=== PATIENT | male | born 1950 | race Caucasian/White ===

== ENCOUNTER 2025-01-08 14:31 | Inpatient (IN) | payer MEDICARE, SELFPAY ==
--- OUTSIDE RECORDS SUMMARY | 2024-02-22 08:24 | XMS_ITS | Encounter Summary ---
Author Name [facility] [place] Organization [facility] [place] Address [address] [place] [address] Care Team Providers Care Facility Manager Name Role Phone MEMO MARQUEZ Primary Care Provider Unavailabl e BREANA WHIPPLE Primary Care Provider Unavailabl e Insurance Providers: All historical and current Section Date Range: From patient's date of to the date document was created. This section includes the names of all active insurance providers for the patient. Insurance Provider Type of Coverage Plan Name Start of Policy Coverage End of Policy Coverage Group Number Member ID Insurance Provider's Telephone Number Policy Gonzalez's Name Patient's Relationship to Policy Gonzalez [facility] (WNR) MEDICARE ADVANTAGE [facility] (WNR) May 21, 2023 [id number] BAYRON,ADI GOTTI PATIENT [employer] [facility] (WNR) MEDICARE ADVANTAGE MCR (WNR) May 21, 2018 [id number] [phone] BAYRON,ADI RGE PATIENT [employer] [facility] (WNR) MEDICARE ADVANTAGE MCR (WNR) May 21, 2017 [id number] [phone] BAYRON,ADI GOULDE PATIENT [employer] [facility] (WNR) MEDICARE ADVANTAGE [facility] (WNR) May 21, 2017 [id number] ADI VERMA PATIENT MEDICARE (WNR) MEDICARE (M) PART A Jul 19, 2014 PART A [id number] ADI VERMA PATIENT MEDICARE (WNR) MEDICARE (M) PART B Jul 19, 2014 PART B [id number] ADI VERMA PATIENT MEDICARE (WNR) MEDICARE (M) PART A Jul 19, 2014 PART A [id number] ADI VERMA PATIENT MEDICARE (WNR) MEDICARE (M) PART B Jul 19, 2014 PART B [id number] [phone] [id number] ADI VERMA PATIENT MEDICARE PART D (WNR) MEDICARE (M) PART D May 21, 2022 PART D [id number] ADI VERMA PATIENT [facility] (WNR) MEDICARE ADVANTAGE [facility] (WNR) September 19, 2023 [id number] ADI VERMA PATIENT Selected Encounter This section includes the information on record at OR for the Encounter. Date/Time Encounter Type Encounter Description Reason Provider Source Feb 22, 2024 01:24 PM Outpatient Encounter ADMIN PAT ACTIVTIES (MASNONCT) KVNG OSEGUERA Encounter Template Text not used by OR Plan of Treatment: Future Appointments (+ 6 months) and Future Tests (+/- 45 days) The Plan of Treatment section includes future care activities for the patient from all [place] treatmentfacilities. This section includes future appointments and future orders which are active, pending or scheduled. Future Appointments This section includes appointments that were scheduled to occur 6 months from the date of the Encounter, up to a maximum of 20 appointments. The data comes from all [place] treatment facilities. Appointment Date/Time Appointment Type Appointme nt Facility Name Feb 26, 2024 10:20 AM AMBULATORY - MEDICINE [facility] Mar 04, 2024 01:00 PM AMBULATORY - MEDICINE [facility] Lab Results: +/- 30 days of the encounter This section includes the Chemistry and Hematology Lab Results on record with OR for the patient. Radiology Reports and Pathology Reports are provided separately, in subsequent sections. Lab Results This section contains the Chemistry/Hematology Results that were resulted 30 days before or 30 daysafter the date of the Encounter. Date/Time Source Result Type Result - Unit Interpretation Reference Range Specimen Type Comment Feb 26, 2024 10:10 AM [facility] COMPREHENSIVE METABOLIC PANEL PLASMA Specimen Type: PLASMA No comment entered. Ordering Provider: MEMO MARQUEZ Report Released Date/Time: Sep 06, 2023 03:29 PM Reporting Lab: [place] [facility] [address] [place] [address] Performing Lab: [place] [facility] [address] [place] [address] CREATININE 1.34 mg/dL H 0.7-1.3 UREA NITROGEN 26 mg/dL H 9-25 GLUCOSE 214 mg/dL H 72-99 SODIUM 138 meq/L 136-145 POTASSIUM 4.7 meq/L 3.5-5 CHLORIDE 108 meq/L H 98-107 CARBON DIOXIDE 22 meq/L 22-31 CALCIUM 9.4 mg/dL 8.4-10.4 PROTEIN 7.3 g/dL 6-8.6 ALBUMIN 4.4 g/dL 3.4-5 TOTAL BILIRUBIN 0.2 mg/dL 0.2-1.2 ALKALINE PHOSPHATASE 63 U/L 40-150 AST/SGOT 15 U/L 5-34 ALT/SGPT 17 U/L 8-40 EGFR (CKD-EPI 2020) 56 Feb 26, 2024 10:10 AM [facility] CHOLESTEROL PANEL (PB) PLASMA Specimen Type: P LASMA No comment entered. Ordering Provider: MEMO MARQUEZ Report Released Date/Time: Sep 06, 2023 03:29 PM Reporting Lab: [place] [facility] [address] [place] [address] Performing Lab: [place] [facility] [address] [place] [address] CHOLESTEROL 139 mg/dL 0-200 TRIGLYCERIDE 129 mg/dL 0-150 CALCULATED LDL 77.1 mg/dL HDL(New) 36.1 mg/dL L >40 HDL % OF TOTAL CHOLESTEROL (PB) 26.0 >25 Feb 26, 2024 10:10 AM [facility] HGA1C BLOOD Specimen Type: BLOOD No comment entered. Ordering Provider: MEMO MARQUEZ Report Released Date/Time: Sep 06, 2023 03:29 PM Reporting Lab: [place] [facility] [address] [place] [address] Performing Lab: [place] [facility] [address] [place] [address] HGA1C 7.5 H 4.0-6.0 Radiology Reports: +/- 30 days of the encounter Radiology Reports For cases when an order for radiology services may have been completed prior to the date of the Encounter, the report list includes the Radiology Reports that were completed up to 30 days before dateof the Encounter. For cases when an order for radiology services may have been completed after the date of the Encounter, the report list also includes the Radiology Reports that were completed up to30 days after date of the Encounter. The data comes from all [place] treatment facilities. Date/Time Radiology Report Provider Source Mar 04, 2024 01:37 PM CHEST X-RAY, 2 VIE WS: TIFFANY VERMA [id number] -1950 M Exm Date: MAR 04, 2024@13:37 Req Phys: MEMO MARQUEZ Loc: PB-MAIN PACT ECHO PCP (Req'g Lo Img Loc: PB-XRAY [place] Service: [place] [address] (Case [id number] COMPLETE) CHEST X-RAY, 2 VIEWS (RAD Detailed) CPT:37577 Reason for Study: heartburn Clinical History: Report Status: Verified Date Reported: MAR 04, 2024 Date Verified: MAR 04, 2024 Residential Field Manager E-Sig: Report: PA and lateral views of the chest reveal moderate degenerative skeletal change, atherosclerotic and granulomas calcifications and mild bilateral hyperaeration, with no infiltrate, effusion or other acute intrathoracic process. Heart size is normal. Impression: No acute process Primary Interpreting Staff: GIANNA WHITE RADIOLOGIST (Residential Field Manager, no e-sig) /GIANNA Lopez [facility] Encounter Notes: All associated encounter notes This section contains the clinical notes associated to the Encounter. Date/Time Encounter Note(s) Provider Source Feb 22, 2024 01:24 PM PRIMARY CARE NOTE: LOCAL TITLE: C TRAVELING PCMM NOTE PB STANDARD TITLE: PRIMARY CARE NOTE DATE OF NOTE: FEB 22, 2024@13:24 ENTRY DATE: FEB 22, 2024@13:24:32 AUTHOR: KVNG OSEGUERA EXP COSIGNER: URGENCY: STATUS: COMPLETED Pt. has an appt. to establish care with [facility] on 03-04-24. PCMM complete. /anna/ KVNG OSEGUERA [facility] RNCC Signed: 02/22/2024 13:24 KVNG OSEGUERA [facility]
--- OUTSIDE RECORDS SUMMARY | 2024-02-25 05:32 | XMS_ITS | Encounter Summary ---
Author Name Department of [place] Organization [place] Address [address] [place] [address] Care Team Providers Care Church History Professor Name Role Phone MEMO MARQUEZ Primary Care [...] Name Patient's Relationship to Policy Gonzalez [facility] (WNR) MEDICARE ADVANTAGE [facility] (WNR) May 21, 2023 [id number] BAYRON,ADI GOTTI PATIENT [employer] [facility] (WNR) MEDICARE ADVANTAGE MCR (WNR) May 21, 2018 [id number] [phone] BAYRON,ADI RGE PATIENT [employer] [facility] (WNR) MEDICARE ADVANTAGE MCR (WNR) May 21, 2017 [id number] [phone] BAYRON,ADI BRYANNAE PATIENT [employer] [facility] (WNR) MEDICARE ADVANTAGE [facility] (WNR) May 21, 2017 [id number] [phone] ADI VERMA PATIENT MEDICARE (WNR) MEDICARE (M) PART A Jul 19, 2014 PART A [id number] ADI VERMA PATIENT MEDICARE (WNR) MEDICARE (M) PART B Jul 19, 2014 PART B [id number] ADI VERMA PATIENT MEDICARE (WNR) MEDICARE (M) PART A Jul 19, 2014 PART A [id number] ADI VERMA PATIENT MEDICARE (WNR) MEDICARE (M) PART B Jul 19, 2014 PART B [id number] ADI VERMA PATIENT MEDICARE PART D (WNR) MEDICARE (M) PART D May 21, 2022 PART D [id number] ADI VERMA PATIENT [facility] (WNR) MEDICARE ADVANTAGE [facility] (WNR) September 19, 2023 [id number] 75 ADI VERMA PATIENT Selected Encounter This section includes the information on record at [place] for the Encounter. Date/Time Encounter Type Encounter Description Reason Provider Source Feb 25, 2024 10:32 AM Outpatient Encounter ADMIN PAT ACTIVTIES (MASNONCT) THAGN VILLALPANDO Encounter Template Text not used by [place] Plan of Treatment: Future Appointments (+ 6 months) and Future Tests (+/- 45 days) The Plan of Treatment section includes future care activities for the patient from all [place] treatmentfaunc healthities. This section includes future appointments and future orders which are active, pending or scheduled. Future Appointments This section includes appointments that were scheduled to occur 6 months from the date of the Encounter, up to a maximum of 20 appointments. The data comes from all [place] treatment facilities. Appointment Date/Time Appointment Type Appointme nt Facility Name Feb 26, 2024 10:20 AM AMBULATORY - MEDICINE [facility] Mar 04, 2024 01:00 PM AMBULATORY - MEDICINE [facility] Aug 25, 2024 10:20 AM AMBULATORY - MEDICINE [facility] Lab Results: +/- 30 days of the encounter This section includes the Chemistry and Hematology Lab Results on record with [place] for the patient. Radiology Reports and Pathology Reports are provided separately, in subsequent sections. Lab Results This section contains the Chemistry/Hematology Results that were resulted 30 days before or 30 daysafter the date of the Encounter. Date/Time Source Result Type Result - Unit Interpretation Reference Range Specimen Type Comment Feb 26, 2024 10:10 AM [facility] COMPREHENSIVE METABOLIC PANEL PLASMA Specimen Type: PLASMA No comment entered. Ordering Provider: MEMO MARQUEZ Report Released Date/Time: Sep 06, 2023 03:29 PM Reporting Lab: [place] [facility] [address] [place] [address] Performing Lab: [place] [facility] [address] [place] [address] CREATININE 1.34 mg/dL H 0.7-1.3 UREA NITROGEN [...] 2020) 56 Feb 26, 2024 10:10 AM [facility] CHOLESTEROL PANEL (PB) PLASMA Specimen Type: P LASMA No comment entered. Ordering Provider: MEMO MARQUEZ Report Released Date/Time: Sep 06, 2023 03:29 PM Reporting Lab: [place] [facility] [address] [place] [address] Performing Lab: [place] [facility] [address] [place] [address] CHOLESTEROL 139 mg/dL 0-200 TRIGLYCERIDE 129 mg/dL 0-150 CALCULATED LDL 77.1 mg/dL HDL(New) 36.1 mg/dL L >40 HDL % OF TOTAL CHOLESTEROL (PB) 26.0 >25 Feb 26, 2024 10:10 AM [facility] HGA1C BLOOD Specimen Type: BLOOD No comment entered. Ordering Provider: MEMO MARQUEZ Report Released Date/Time: Sep 06, 2023 03:29 PM Reporting Lab: [place] [facility] [address] [place] [address] Performing Lab: [place] [facility] [address] [place] [address] HGA1C 7.5 H 4.0-6.0 Radiology Reports: +/- [...] the Encounter. The data comes from all [place] treatment facilities. Date/Time Radiology Report Provider Source Mar 04, 2024 01:37 PM CHEST X-RAY, 2 VIE WS: TIFFANY VERMA [id number] -1950 M Exm Date: MAR 04, 2024@13:37 Req Phys: MEMO MARQUEZ Pat Loc: PB-MAIN PACT ECHO PCP (Req'g Lo Img Loc: PB-XRAY [place] Service: [place] [address] (Case [id number] COMPLETE) CHEST X-RAY, 2 VIEWS (RAD Detailed) CPT:49224 Reason for Study: heartburn Clinical History: Report Status: Verified Date Reported: MAR 04, 2024 Date Verified: MAR 04, 2024 Air Brake Adjuster E-Sig: Report: PA and lateral views of the chest reveal moderate degenerative skeletal change, atherosclerotic and granulomas calcifications and mild bilateral hyperaeration, with no infiltrate, effusion or other acute intrathoracic process. Heart size is normal. Impression: No acute process Primary Interpreting Staff: GIANNA WHITE RADIOLOGIST (Air Brake Adjuster, no e-sig) /GIANNA Lopez [facility] Encounter Notes: All associated encounter notes This section contains the clinical notes associated to the Encounter. Date/Time Encounter Note(s) Provider Source Feb 25, 2024 10:32 AM PRIMARY CARE ADMIN ISTRATIVE NOTE: LOCAL TITLE: PCMM TRAVELING/RELOCATING COORDINATOR STANDARD TITLE: PRIMARY CARE ADMINISTRATIVE NOTE DATE OF NOTE: FEB 25, 2024@10:32 ENTRY DATE: FEB 25, 2024@10:32:57 AUTHOR: THANG VILLALPANDO EXP COSIGNER: URGENCY: STATUS: COMPLETED Received PCMM (Patient Centered Care Module)actionable alert. Clinical record review completed by [facility]; has permanently relocated to [place], [place] scheduled an appointment to establish Primary Care with [facility] on 03/04/24. New PACT assignment approved in PCMM. PACT assignment, responsibility of managing care, and full supply of medications will remain with [facility] until established with new PCP. /anna/ THANG VILLALPANDO, MSN, INVASIVE CARDIOLOGIST COORDINATOR Signed: 02/25/2024 10:35 THANG VILLALPANDO [facility]
--- OUTSIDE RECORDS SUMMARY | 2024-02-27 08:36 | XMS_ITS | Encounter Summary ---
Author Name Department [place] Organization [place] Address [address] [place] [address] Care Team Providers Care Solderer Furnace Name Role Phone MEMO MARQUEZ Primary Care [...] Gonzalez's Name Patient's Relationship to Policy Gonzalez [facility] (WNR) MEDICARE ADVANTAGE [facility] (WNR) May 21, 2023 [id number] BAYRON,ADI GOTTI PATIENT [employer] [facility] (WNR) MEDICARE ADVANTAGE MCR (WNR) May 21, 2018 [id number] [phone] BAYRON,ADI RGE PATIENT [employer] [facility] (WNR) MEDICARE ADVANTAGE MCR (WNR) May 21, 2017 [id number] [phone] BAYRON,ADI BRYANNAE PATIENT [employer] [facility] (WNR) MEDICARE ADVANTAGE [facility] (WNR) May 21, 2017 [id number] [phone] ADI VERMA PATIENT MEDICARE (WNR) MEDICARE (M) PART A Jul 19, 2014 PART A [id number] ADI VERMA PATIENT MEDICARE (WNR) MEDICARE (M) PART B Jul 19, 2014 PART B [id number] ADI VERMA PATIENT MEDICARE (WNR) MEDICARE (M) PART A Jul 19, 2014 PART A [id number] [phone] ADI VERMA PATIENT MEDICARE (WNR) MEDICARE (M) PART B Jul 19, 2014 PART B [id number] ADI VERMA PATIENT MEDICARE PART D (WNR) MEDICARE (M) PART D May 21, 2022 PART D [id number] ADI VERMA PATIENT [facility] (WNR) MEDICARE ADVANTAGE [facility] (WNR) September 19, 2023 [id number] 75 ADI VERMA PATIENT Selected Encounter This section includes the information on record at [place] for the Encounter. Date/Time Encounter Type Encounter Description Reason Pro vider Source Feb 27, 2024 01:36 PM Outpatient Encounter ADMIN PAT ACTIVTIES (MASNONCT) [facility] Encounter Template Text not used by [place] Plan of Treatment: Future Appointments (+ 6 months) and Future Tests (+/- 45 days) The Plan of Treatment section includes future care activities for the patient from all [place] treatmentfacilities. This section includes future appointments and future orders which are active, pending or scheduled. Future Appointments This section includes appointments that were scheduled to occur 6 months from the date of the Encounter, up to a maximum of 20 appointments. The data comes from all [place] treatment facilities. Appointment Date/Time Appointment Type Appointme nt Facility Name Mar 04, 2024 01:00 PM AMBULATORY - MEDICINE [facility] Aug 25, 2024 10:20 AM AMBULATORY - MEDICINE [facility] Lab Results: +/- 30 days of the encounter This section includes the Chemistry and Hematology Lab Results on record with [place] for the patient. Radiology Reports and Pathology Reports are provided separately, in subsequent sections. Lab Results This section contains the Chemistry/Hematology Results that were resulted 30 days before or 30 daysafter the date of the Encounter. Date/Time Source Result Type Result - Unit Interpretation Reference Range Specimen Type Comment Feb 26, 2024 10:10 AM [facility] COMPREHENSIVE METABOLIC PANEL PLASMA Specimen Type: PLASMA No comment entered. Ordering Provider: MEMO MARQUEZ Report Released Date/Time: Sep 06, 2023 03:29 PM Reporting Lab: [place] [facility] [address] [place] [address] Performing Lab: [place] [facility] [address] [place] [address] CREATININE 1.34 mg/dL H 0.7-1.3 UREA NITROGEN [...] 2020) 56 Feb 26, 2024 10:10 AM [facility] CHOLESTEROL PANEL (PB) PLASMA Specimen Type: P LASMA No comment entered. Ordering Provider: MEMO MARQUEZ Report Released Date/Time: Sep 06, 2023 03:29 PM Reporting Lab: [place] [facility] [address] [place] [address] Performing Lab: [place] [facility] [address] [place] [address] CHOLESTEROL 139 mg/dL 0-200 TRIGLYCERIDE 129 mg/dL 0-150 CALCULATED LDL 77.1 mg/dL HDL(New) 36.1 mg/dL L >40 HDL % OF TOTAL CHOLESTEROL (PB) 26.0 >25 Feb 26, 2024 10:10 AM [facility] HGA1C BLOOD Specimen Type: BLOOD No comment entered. Ordering Provider: MEMO MARQUEZ Report Released Date/Time: Sep 06, 2023 03:29 PM Reporting Lab: [place] [facility] [address] [place] [address] Performing Lab: [place] [facility] [address] [place] [address] HGA1C 7.5 H 4.0-6.0 Social History: Smoking Status (Most current) and Tobacco Use (All prior to encounter date) This section includes the most current, and the historical, smoking and tobacco- related health factors from the [place] facility where the Encounter took place. Current Smoking Status This section includes the most current smoking, or tobacco-related health factor, from the [place] facility where the Encounter took place. Date/Time Current Smoking Status Comment Facil ity Sep 06, 2023 02:30 PM VA-TOBACCO USER EVERY DAY [facility] Tobacco Use History This section includes a history of the smoking, or tobacco-related health factors, that were collected on or before the date of the Encounter. The data comes from the [place] facility where the Encounter took place. Date/Time Smoking Status/Tobacco Use Comment F acility Sep 06, 2023 02:30 PM VA-TOBACCO USE ADVICE [facility] Sep 06, 2023 02:30 PM VA-TOBACCO USE SAMPLE CARD MAKER NO [facility] Sep 06, 2023 02:30 PM VA-TOBACCO USE MED NO [facility] Sep 06, 2023 02:30 PM VA-TOBACCO USE WI 30 MIN OF WAKE UP [facility] Sep 06, 2023 02:30 PM VA-TOBACCO USER EVERY DAY [facility] Radiology Reports: +/- 30 days of the [...] the Encounter. The data comes from all [place] treatment facilities. Date/Time Radiology Report Provider Source Mar 04, 2024 01:37 PM CHEST X-RAY, 2 VIE WS: TIFFANY VERMAANNA [id number] -1950 M Exm Date: MAR 04, 2024@13:37 Req Phys: ALMA,MEMO Pat Loc: PB-MAIN PACT ECHO PCP (Latoyaq'vlad Lo Img Loc: PB-XRAY [place] Service: [place] [address] (Case [id number] COMPLETE) CHEST X-RAY, 2 VIEWS (RAD Detailed) CPT:29521 Reason for Study: heartburn Clinical History: Report Status: Verified Date Reported: MAR 04, 2024 Date Verified: MAR 04, 2024 Money Market Dealer E-Sig: Report: PA and lateral views of the chest reveal moderate degenerative skeletal change, atherosclerotic and granulomas calcifications and mild bilateral hyperaeration, with no infiltrate, effusion or other acute intrathoracic process. Heart size is normal. Impression: No acute process Primary Interpreting Staff: GIANNA WHITE, RADIOLOGIST (Money Market Dealer, no e-sig) /GIANNA Lopez [facility] Encounter Notes: All associated encounter notes This section contains the clinical notes associated to the Encounter. Date/Time Encounter Note(s) Provider Source Feb 27, 2024 01:36 PM GENERAL MEDICINE N OTE: LOCAL TITLE: General Note PB STANDARD TITLE: GENERAL MEDICINE NOTE DATE OF NOTE: FEB 27, 2024@13:36 ENTRY DATE: FEB 27, 2024@13:36:12 AUTHOR: LUCIANA LUNDY EXP COSIGNER: URGENCY: STATUS: COMPLETED Eye Care At-Risk Screen : Patient identified to be at risk for the following eye condition(s): DIABETIC RETINOPATHY: Diabetes Diagnosis Information: Encounter Diagnosis: 09/06/2023@14:30 E11.9 (ICD-10-CM) Type 2 Diabetes Mellitus without Complications rank: PRIMARY Prov. Narr. - Diabetes Mellitus Type 2 ([facility] [id number]) Action: No Referral Ordered: Eye exam completed elsewhere by an Seasoning Mixer or Stiff Straw Hat Washer Diabetic retinal exam result: Positive for Retinopathy Date: September 26, 2023 Location: [facility] // LUCIANA LUNDY Telehealth Clinical Government Sales Manager Signed: 02/27/2024 13:36 LUCIANA LUNDY [facility]
--- OUTSIDE RECORDS SUMMARY | 2024-03-04 08:00 | XMS_ITS | Encounter Summary ---
Author Name [facility] [place] [facility] [place] [facility] [place] [place] [facility] [place] Address [address] [place] [address] Care Team Providers Care Marketing Ambassador Name Role Phone MONIKA SHERMAN Primary Care Provider Unavailabl e BREANA WHIPPLE [...] Name Patient's Relationship to Policy Gonzalez [facility] (WNR) MEDICARE ADVANTAGE [facility] (WNR) May 21, 2023 [id number] BAYRON,ADI RGE PATIENT [employer] [facility] (WNR) MEDICARE ADVANTAGE MCR (WNR) May 21, 2018 [id number] VERMA,ADI RGE PATIENT [employer] [facility] (WNR) MEDICARE ADVANTAGE [facility] (WNR) May 21, 2017 [id number] BAYRON,ADI RGE PATIENT [employer] [facility] (WNR) MEDICARE ADVANTAGE [facility] (WNR) May 21, 2017 [id number] [phone] BAYRON,ADI GOTTI PATIENT MEDICARE (WNR) MEDICARE (M) PART A Jul 19, 2014 PART A [id number] ADI VERMA PATIENT MEDICARE (WNR) MEDICARE (M) PART B Jul 19, 2014 PART B [id number] [id number] ADI VERMA PATIENT MEDICARE (WNR) MEDICARE (M) PART A Jul 19, 2014 PART A [id number] BAYRON,ADI GOTTI PATIENT MEDICARE (WNR) MEDICARE (M) PART B Jul 19, 2014 PART B [id number] ADI VERMA PATIENT MEDICARE PART D (WNR) MEDICARE (M) PART D May 21, 2022 PART D [id number] ADI VERMA PATIENT [facility] (WNR) MEDICARE ADVANTAGE [facility] (WNR) September 19, 2023 [id number] ADI VERMA PATIENT Selected Encounter This section includes the information on record at [place] for the Encounter. Date/Time Encounter Type Encounter Description Reason Provider Source Mar 04, 2024 01:00 PM OFFICE O/P EST MOD 30 MIN PRIMARY CARE/MEDICINE ICD-10-CM E11.9 Type 2 diabetes mellitus without complications AUSTEN SHERMAN Encounter Template Text not used by [facility] Assessments - Encounter Diagnoses This section includes the primary and secondary diagnoses documented for the Encounter. Date/Time Primary/Secondary Diagnosis Diagnosis Name Provider Source Mar 04, 2024 02:51 PM PRIMARY Type 2 diabetes mellitus without complications MONIKA SHERMAN [facility] Mar 04, 2024 02:51 PM SECONDARY Contact with and exposure to other hazardous substances MONIKA SHERMAN [facility] Mar 04, 2024 02:51 PM SECONDARY Encounter for immunization AGA VILLALPANDO [facility] Mar 04, 2024 02:51 PM SECONDARY Essential (primary) hypertension ALMAMONIKA [facility] Mar 04, 2024 02:51 PM SECONDARY Hyperlipidemia, unspecified [facility] Mar 04, 2024 02:51 PM SECONDARY Type 2 diabetes mellitus with diabetic nephropathy ALMAMONIKA [facility] Mar 04, 2024 02:51 PM SECONDARY 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 This section includes future appointments and future orders which are active, pending or scheduled. Future Appointments This section includes appointments that were scheduled to occur 6 months from the date of the Encounter, up to a maximum of 20 appointments. The data comes from all [place] treatment facilities. Appointment Date/Time Appointment Type Appointme nt Facility Name Aug 25, 2024 10:20 AM AMBULATORY - MEDICINE [facility] Sep 01, 2024 01:00 PM [facility] Lab Results: +/- 30 days of the encounter This section includes the Chemistry and Hematology Lab Results on record with [place] for the patient. Radiology Reports and Pathology Reports are provided separately, in subsequent sections. Lab Results This section contains the Chemistry/Hematology Results that were resulted 30 days before or 30 daysafter the date of the Encounter. Date/Time Source Result Type Result - Unit Interpretation Reference Range Specimen Type Comment Feb 26, 2024 10:10 AM [facility] COMPREHENSIVE METABOLIC PANEL PLASMA Specimen Type: PLASMA No comment entered. Ordering Provider: MONIKA SHERMAN Report Released Date/Time: Sep 06, 2023 03:29 PM Reporting Lab: [place] [facility] [address] [place] [address] Performing Lab: [place] [facility] [address] [place] [address] CREATININE 1.34 mg/dL H 0.7-1.3 UREA NITROGEN [...] 2020) 56 Feb 26, 2024 10:10 AM [facility] CHOLESTEROL PANEL (PB) PLASMA Specimen Type: P LASMA No comment entered. Ordering Provider: MONIKA SHERMAN Report Released Date/Time: Sep 06, 2023 03:29 PM Reporting Lab: [place] [facility] [address] [place] [address] Performing Lab: [place] [facility] [address] [place] [address] CHOLESTEROL 139 mg/dL 0-200 TRIGLYCERIDE 129 mg/dL 0-150 CALCULATED LDL 77.1 mg/dL HDL(New) 36.1 mg/dL L >40 HDL % OF TOTAL CHOLESTEROL (PB) 26.0 >25 Feb 26, 2024 10:10 AM [facility] HGA1C BLOOD Specimen Type: BLOOD No comment entered. Ordering Provider: MONIKA SHERMAN Report Released Date/Time: Sep 06, 2023 03:29 PM Reporting Lab: [place] [facility] [address] [place] [address] Performing Lab: [place] [facility] [address] [place] [address] HGA1C 7.5 H 4.0-6.0 Vital Signs: All taken on the encounter date This section contains inpatient and outpatient Vital Signs collected on the date of the Encounter. Date/Time Temperature Pulse Blood Pressure Respiratory Rate SP02 Pain Height Weight Body Mass Index Source Mar 04, 2024 04:46 PM 98 97 136/74 18 98 167.3 24 [facility] Immunizations: All administered on the encounter date This section contains immunizations associated to the Encounter. Immunization Series Date Issued Administered By Site Reaction Lot Number CVX Code Drug Crosscutter Rolled Glass Comment(s) Source INFLUENZA, HIGH-DOSE, TRIVALENT, PF Mar 04, 2024 MERRICK VILLALPANDO LEFT DELTO ID [id number] [facility] PASTEUR [facility]MINISTERE D AT [facility] ZOSTER RECOMBINANT 2 Mar 04, 2024 MERRICK VILLALPANDO RIGHT DELTO ID [id number] PRIETO Larios AT [facility] Social History: Smoking Status (Most current) and Tobacco Use (All prior to encounter date) This section includes the most current, and the historical, smoking and tobacco- related health factors from the [place] facility where the Encounter took place. Current Smoking Status This section includes the most current smoking, or tobacco-related health factor, from the [place] facility where the Encounter took place. Date/Time Current Smoking Status Comment Facil ity Sep 06, 2023 02:30 PM VA-TOBACCO USER EVERY DAY [facility] Tobacco Use History This section includes a history of the smoking, or tobacco-related health factors, that were collected on or before the date of the Encounter. The data comes from the [place] facility where the Encounter took place. Date/Time Smoking Status/Tobacco Use Comment F acility Sep 06, 2023 02:30 PM VA-TOBACCO USE ADVICE [facility] Sep 06, 2023 02:30 PM VA-TOBACCO USE CLOTH HAND NO [facility] Sep 06, 2023 02:30 PM VA-TOBACCO USE MED NO [facility] Sep 06, 2023 02:30 PM VA-TOBACCO USE WI 30 MIN OF WAKE UP [facility] Sep 06, 2023 02:30 PM VA-TOBACCO USER EVERY DAY [facility] Radiology Reports: +/- 30 days [...] the Encounter. The data comes from all [place] treatment facilities. Date/Time Radiology Report Provider Source Mar 04, 2024 01:37 PM CHEST X-RAY, 2 VIE WS: TIFFANY VERMA [id number] M Exm Date: MAR 04, 2024@13:37 Req Phys: MONIKA SHERMAN Loc: PB-MAIN PACT ECHO PCP (Req'g Lo Img Loc: PB-XRAY [facility] Service: Unknown [place] [address] (Case [id number] COMPLETE) CHEST X-RAY, 2 VIEWS (RAD Detailed) CPT:51167 Reason for Study: heartburn Clinical History: Report Status: Verified Date Reported: MAR 04, 2024 Date Verified: MAR 04, 2024 Mathematics Teacher E-Sig: Report: PA and lateral views of the chest reveal moderate degenerative skeletal change, atherosclerotic and granulomas calcifications and mild bilateral hyperaeration, with no infiltrate, effusion or other acute intrathoracic process. Heart size is normal. Impression: No acute process Primary Interpreting Staff: GIANNA WHITE, RADIOLOGIST (Mathematics Teacher, no e-sig) /GIANNA Lopez [facility] Encounter Notes: All associated encounter notes This section contains the clinical notes associated to the Encounter. Date/Time Encounter Note(s) Provider Source Mar 04, 2024 01:37 PM PRIMARY CARE PROGR ESS NOTE: LOCAL TITLE: PRIMARY CARE CLINIC PROGRESS NOTE PB STANDARD TITLE: PRIMARY CARE PROGRESS NOTE DATE OF NOTE: MAR 04, 2024@13:37 ENTRY DATE: MAR 04, 2024@13:37:10 AUTHOR: MONIKA SHERMAN EXP COSIGNER: URGENCY: STATUS: COMPLETED SUBJECTIVE: TIFFANY VERMA is a 73 years old MALE. HPI: Presents to the clinic today for a periodic health maintenance visit. Last seen September 06, 2023. He reports for the last couple of months having intermittent heartburn in the evenings usually 2 or 3 times takes a acid territory manager general sales and that usually will relieve it. He describes it in the upper abdomen and epigastric region. He has no cardiac history directly but does have hypertension and diabetes. He denies any diuresis or shortness of breath associated with the episodes. His home blood pressure logs are running 109/50-140/63. Non-VA Primary Care Provider Dr. 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 OVERSEAS STATIONS/DEPLOYMENTS: no MAJOR ACCIDENTS OR INJURIES WHILE ON ACTIVE DUTY: no MST: no SURGICAL HX: left cataracts left foot amputation lap cholecystectomy Problem List 1) Diabetes Mellitus Type 2 ([facility] [id number]) 2) Diabetic retinopathy 3) Diabetic nephropathy 4) Vitamin D Deficiency ([facility] [id number]) 5) Hyperlipidemia ([facility] [id number]) 6) HTN - Hypertension ([facility] [id number]) 7) Exposure to potentially hazardous substance ([facility] [id number]) Active Outpatient Medications (including Supplies): Active Outpatient Medications Status 1) AMLODIPINE BESYLATE 10MG TAB TAKE ONE TABLET BY MOUTH ACTIVE ONCE A DAY FOR HIGH BLOOD PRESSURE 2) ATORVASTATIN CALCIUM 80MG TAB TAKE ONE-HALF TABLET BY ACTIVE MOUTH EVERY EVENING FOR HIGH CHOLESTEROL 3) LOSARTAN 50MG TAB TAKE ONE-HALF TABLET BY MOUTH ONCE ACTIVE A DAY FOR HIGH BLOOD PRESSURE 4) METFORMIN HCL 1000MG TAB TAKE ONE TABLET BY MOUTH ACTIVE TWICE A DAY WITH MEALS FOR DIABETES TAKE WITH FOOD. AVOID ALCOHOL. DISCONTINUE BEFORE GETTING XRAY DYE. 5) METOPROLOL TARTRATE 100MG TAB TAKE ONE TABLET BY ACTIVE MOUTH TWICE A DAY FOR HIGH BLOOD PRESSURE TAKE WITH OR IMMEDIATELY FOLLOWING FOOD. Pending Outpatient Medications Status 1) OMEPRAZOLE 20MG EC CAP TAKE ONE CAPSULE BY MOUTH PENDING EVERY MORNING BEFORE A MEAL TAKE 30 MINUTES PRIOR TO FOOD. 6 Total Medications Allergies: Patient has answered NKA Review of Systems: as per HPI and Systemic: Denies fatigue, fever, chills, or weight loss CV: Denies chest pain, palpitations Pulmonary: Denies hemoptysis, Shortness of breath, dyspnea on exertion GI: Denies constipation, bloody stools, diarrhea, indigestion, or n/v Ext: Denies any swelling Neuro: Denies slurred speech or dizziness Skin: Denies abnormal lesions; denies any new rashes PSYCH: Denies SI/HI; denies nightmares OBJECTIVE: Vital Signs Temperature: 97.6 F [36.4 C] (09/06/2023 15:07) Respiratory Rate: 18 (09/06/2023 15:07) Pulse Rate: 75 (09/06/2023 15:07) Blood Pressure: 130/78 (09/06/2023 15:07) HT: 70 in [177.8 cm] (09/06/2023 15:07) WT: 167.6 lb [76.02 kg] (09/06/2023 15:07) BMI: 24.1 98% (09/06/2023 15:07) Physical Exam General: NAD noted, A&Ox3, pleasant, appears stated age HEENT: NCAT, TM's clear, nares and oropharynx clear Neck: Supple with normal active ROM, without any lymphadenopathy Heart: RRR, no murmur, clicks, or rub Resp: Lungs CTA bilaterally, respirations even and unlabored Ext: No clubbing, cyanosis, edema or obvious deformity Skin: Warm, pink, and dry, no rashes Neuro: Grossly intact Psych: Affect normal, answers questions appropriately throughout visit Chest x-ray today: No acute changes/infiltrates no cardiomegaly ECG today: Normal sinus rhythm with a ventricular rate of [address] no acute ST changes A/P: ASSESSMENT and PLAN Health Maintenance: Labs reviewed with patient and printout given to patient. Discussed preventative health to include diet and exercise as well as immunizations. He received his flu and zoster #2 vaccines today. Diabetes Mellitus Type 2- on metformin; A1c increased to 7.5 we will start him on Amaryl 1 mg daily Diabetic retinopathy-followed by ophthalmology Diabetic nephropathy-will renew diabetic shoes and socks Vitamin D Deficiency- on supplement Hyperlipidemia-controlled on atorvastatin HTN- controlled on losartan, metoprolol, and amlodipine GERD-will start him on omeprazole; if no improvement he was instructed to let me know and we will get him set up for stress test. Exposure to potentially hazardous substance Stable. Discussed medications with patient; med rec completed. Continue current regimen as prescribed by PCP and specialists. RTC as needed if developing any new or worsening symptoms. Please notify PACT with medication changes or for orders coordination as needed if seen by a specialist in the future. Will f/u with patient once updated labs / imaging / testing received; otherwise f/u as listed below. Follow-up: 6 months with fasting labs prior to appointment and/or as needed. Discussed with patient that in the event of community imaging / testing being ordered in the future, once the imaging / testing has been completed, please notify PACT of completion at outside facility if not called with results within 1 week by a [facility] PACT member; this is due to intermittent lapses in notification of imaging completion within CPRS. All questions answered; agrees to plan of care. Follow up as listed above, annually, and as needed. Keep all appointments. Medications Reconciled. See AVS given to Morrison. Time spent 30 minutes. /sarah/ Monika Sherman MD [facility] Primary Care Signed: 03/04/2024 14:50 MONIKA SHERMAN [facility] Mar 04, 2024 01:00 PM PRIMARY CARE NURSI NG NOTE: LOCAL TITLE: PRIMARY CARE NURSING PROGRESS NOTE (TEXT) NURSING P STANDARD TITLE: PRIMARY CARE NURSING NOTE DATE OF NOTE: MAR 04, 2024@13:00 ENTRY DATE: MAR 04, 2024@16:48:21 AUTHOR: CHELSIE VILLALPANDO EXP COSIGNER: URGENCY: STATUS: COMPLETED Established Patient TIFFANY VERMA IS A 73 YEAR OLD MALE BEING SEEN IN CLINIC MAR 04, 2024. == == REASON FOR VISIT: RTC 6 Months Are you receiving care any where other than the [facility]? No HEALTH AND SURGICAL HISTORY: Does patient report using home oxygen? No CURRENT ACTIVE MEDICATIONS FOR REVIEW: Allergies/ADRs (Tool #5) FACILITY ALLERGY/ADR -------- [facility] No Known Allergies Med. Reconciliation (Tool #1) INCLUDED IN THIS LIST: Alphabetical list of active outpatient prescriptions dispensed from this [place] (local) and dispensed from another [place] or [facility] facility (remote) as well as inpatient orders (local pending and active), local clinic medications, locally documented non-VA medications, and local prescriptions that have or been discontinued in the past 90 days. Non-VA Meds Last Documented On: Data not found NOTE The display of VA prescriptions dispensed from another [place] or [facility] facility (remote) is limited to active outpatient prescription entries matched to National Drug File at the originating site and may not include some items such as investigational drugs, compounds, etc. NOT INCLUDED IN THIS LIST: Medications self-entered by the patient into personal health records (i.e. [facility]) are NOT included in this list. Non-VA medications documented outside this [place], remote inpatient orders (regardless of status) and remote clinic medications are NOT included in this list. The patient and provider must always discuss medications the patient is taking, regardless of where the medication was dispensed or obtained. OUTPT AMLODIPINE BESYLATE 10MG TAB (Status = Active/Suspended) TAKE ONE TABLET BY MOUTH ONCE A DAY FOR HIGH BLOOD PRESSURE Rx# [id number] Last Released: 12/04/23 Qty/Days Supply: Rx Expiration Date: 09/06/24 Refills Remainin Indication: FOR HIGH BLOOD PRESSURE Remote ATORVASTATIN CA 40MG TAB TAKE ONE TABLET BY MOUTH AT BEDTIME FOR HIGH CHOLESTEROL *DO NOT EAT GRAPEFRUIT OR GRAPEFRUIT JUICE WHILE TAKING THIS MEDICINE* Last Filled: 06/22/23 (Active at [facility]) Rx Expiration Date: 04/03/24 Days Supply: 90 OUTPT ATORVASTATIN CALCIUM 80MG TAB (Status = Active) TAKE ONE-HALF TABLET BY MOUTH EVERY EVENING FOR HIGH CHOLESTEROL Rx# [id number] Last Released: 12/04/23 Qty/Days Supply: 45 Rx Expiration Date: 09/06/24 Refills Remainin Indication: FOR HIGH CHOLESTEROL OUTPT GLIMEPIRIDE 2MG TAB (Status = Pending) TAKE ONE-HALF TABLET BY MOUTH EVERY MORNING TAKE WITH BREAKFAST OR FIRST FOOD. Login Date: 03/04/24 Qty/Days Supply: 45/90 Refills Ordered: 3 Remote LOSARTAN 25MG TAB TAKE ONE TABLET BY MOUTH EVERY DAY FOR BLOOD PRESSURE Last Filled: 08/07/23 (Active at [facility]) Rx Expiration Date: 04/03/24 Days Supply: 90 OUTPT LOSARTAN 50MG TAB (Status = Active/Suspended) TAKE ONE-HALF TABLET BY MOUTH ONCE A DAY FOR HIGH BLOOD PRESSURE Rx# [id number] Last Released: 12/06/23 Qty/Days Supply: 45 Rx Expiration Date: 09/06/24 Refills Remainin Indication: FOR HIGH BLOOD PRESSURE OUTPT METFORMIN HCL 1000MG TAB (Status = Active/Suspended) TAKE ONE TABLET BY MOUTH TWICE A DAY WITH MEALS FOR DIABETES TAKE WITH FOOD. AVOID ALCOHOL. DISCONTINUE BEFORE GETTING XRAY DYE. Rx# [id number] Last Released: 12/06/23 Qty/Days Supply: 180 Rx Expiration Date: 09/06/24 Refills Remainin Indication: FOR DIABETES OUTPT METOPROLOL TARTRATE 100MG TAB (Status = Active/Suspended) TAKE ONE TABLET BY MOUTH TWICE A DAY FOR HIGH BLOOD PRESSURE TAKE WITH OR IMMEDIATELY FOLLOWING FOOD. Rx# [id number] Last Released: 12/05/23 Qty/Days Supply: 180/90 Rx Expiration Date: 09/06/24 Refills Remainin Indication: FOR HIGH BLOOD PRESSURE OUTPT OMEPRAZOLE 20MG EC CAP (Status = Pending) TAKE 1 CAPSULE BY MOUTH EVERY MORNING BEFORE A MEAL TAKE 30 MINUTES PRIOR TO food. Login Date: 03/04/24 Qty/Days Supply: 90/90 Refills Ordered: 3 SUPPLIES PHARMACY TERMS AND POSSIBLE PATIENT ACTIONS INPT = [place] inpatient order IV = [place] intravenous medication OUTPT = [place] outpatient prescription PHARMACY POSSIBLE PATIENT TERMS EXPLANATION ACTIONS -------- ----- ACTIVE A prescription that can be If you have refills, filled at the local [place] pharmacy. you may request a refill of this prescription from your VA pharmacy. CLINIC A medication you received during If you have questions a visit to a [place] clinic or about this medication emergency department. contact your [place] healthcare team. DISCONTINUED A prescription your provider has Contact your [place] stopped. It is no longer healthcare team if you available to be sent to you or need more of this picked up at the [place] pharmacy medication. window. A prescription which is too old Contact your VA to fill. This does not refer to healthcare team if you the expiration date of the need more of this medication in the container. medication. NON-VA A medication that came from If this medication someplace other than a VA information is pharmacy. This may be a incorrect or out of prescription from either the VA date, please tell your or non VA providers that was VA healthcare team. filled outside the VA. Or, it may be an ajly-cuy-cvymjaj (OTC), herbal, dietary supplements or sample medication. ON HOLD An active prescription that will Contact your VA not be filled until pharmacy pharmacy when you need resolves the issue. more of this medication. PARKED An active prescription that will Contact your VA not be filled until the patient pharmacy when you need requests it. this medication. PENDING This prescription order has been If you have been sent to the pharmacy for review instructed to start and is not ready yet. this medication now, contact your VA pharmacy. SUSPENDED An active prescription that is Contact your VA not scheduled to be filled yet. pharmacy if you need You should receive it before this medication now. you run out. Patient reports taking medications as ordered. IS PATIENT TAKING ANY OVER THE COUNTER MEDICATIONS, SUCH VITAMINS OR HERBAL SUPPLEMENTS, INCLUDING ANY MEDICATIONS PRESCRIBED BY ANOTHER PHYSICIAN? No ALLERGIES/ADVERSE REACTIONS: Patient has answered NKA Does patient have any new allergies to report since last visit? NO VITALS: TEMPERATURE: 98 F [36.7 C] (03/04/2024 16:46) BP: 136/74 (03/04/2024 16:46) RESP: 18 (03/04/2024 16:46) PULSE: 97 (03/04/2024 16:46) HT: 70 in [177.8 cm] (09/06/2023 15:07) WT: 167.3 lb [75.89 kg] (03/04/2024 16:46) BMI: 24.1 PAIN ASSESSMENT: (Most Recent Pain Score in Vitals Package: 0 (09/06/2023 15:07) ) The patient indicated that they and their close contacts have not traveled outside of the [place] in the past 21 days. The patient reports the following symptoms: No symptoms present The patient is not immunocompromised. The patient does not report having a history of Multi Drug Resistant Organism (MDRO) within the last five years. The patient does not report having been exposed to measles, chickenpox, or zoster in last 30 days. Patient reports no pain at this visit. Pain Score = 0. STRESS: Thank you for your service. Now let us serve you. At the [facility], we strive to provide you with exceptional health care that improves your health and well-being. Are you feeling sad, empty, or depressed? No Do you need to talk about things in your life that worry you or cause you stress? No Do you need to talk about personal problems, family problems, alcohol use, drug use, or mental or emotional illness? No SUICIDE SCREENING: The patient was asked, Over the past two weeks, how often have you been bothered by thoughts that you would be better off or of hurting yourself in some way? Not At All SPIRITUAL ASSESSMENT: Are there caodaism practices or spiritual concerns you want the poultry dresser, your physician, and other health care team members to immediately know about? No Patient advised to call the clinic for any concerns, questions, or symptoms. Patient and/or caregiver verbalized understanding of plan of care. Herpes Zoster (Shingles) Vaccine: Administered: ZOSTER RECOMBINANT Date Administered: Mar 04, 2024 13:00 Series: Series 2 Crosscutter Rolled Glass: [employer] Lot: [id number] Exp Date: October 03, 2025 ND: [id number] Admin Route/Site: INTRAMUSCULAR/RIGHT DELTOID Dosage: 0.5mL Vaccine Information Statement(s): RECOMBINANT ZOSTER VACCINE VIS Jun 24, 2021 (THAI) Order By: Monika Sherman Administered By: Chelsie Villalpando Vaccine Information Sheet (VIS) was given to the patient/caregiver, education regarding adverse reactions was discussed, as well as barriers to learning, if any, were acknowledged. Influenza Immunization: Influenza, High-Dose, Trivalent, Preservative Free (Fluzone-Syringe) Administered: INFLUENZA, HIGH-DOSE, TRIVALENT, PF Date Administered: Mar 04, 2024 13:00 Series: (None selected) Crosscutter Rolled Glass: SANOFI PASTEUR Lot: [id number] Exp Date: Nov 17, 2024 NDC: [id number] Admin Route/Site: INTRAMUSCULAR/LEFT DELTOID Dosage: 0.5mL Vaccine Information Statement(s): INFLUENZA(FLU) VACC(INACTIVATED OR RECOMBINANT)VIS Dec 24, 2020 (THAI) Order By: Monika Sherman Administered By: Chelsie Villalpando The Influenza Vaccine Information Statement (VIS) was reviewed with the patient/caregiver which lists the benefits and risks of the vaccine and the risks of not receiving the Influenza vaccine. The patient/caregiver denied any prior severe reaction to this vaccine or its components or a severe allergic reaction, such as anaphylaxis, to any vaccine or any injectable therapy. The patient/caregiver gave verbal consent to receive the vaccine. RHS Screen: RHS Screen Environmental Check Screening was not completed at this time due to: Another adult present /es/ Chelsie Villalpando RN [facility] Signed: 03/04/2024 16:51 CHELSIE VILLALPANDO [facility] [place] [facility]
--- OUTSIDE RECORDS SUMMARY | 2024-09-01 08:00 | XMS_ITS | Encounter Summary ---
Author Name [facility] [place] [facility] [place] Address [address] [place] [address] Care Team Providers Care Wood Caulker Name Role Phone MONIKA SHERMAN Primary Care [...] Gonzalez's Name Patient's Relationship to Policy Gonzalez [facility] (WNR) MEDICARE ADVANTAGE [facility] (WNR) May 21, 2023 [id number] BAYRON,ADI RGE PATIENT [employer] [facility] (WNR) MEDICARE ADVANTAGE MCR (WNR) May 21, 2018 [id number] VERMA,ADI RGE PATIENT [employer] [facility] (WNR) MEDICARE ADVANTAGE [facility] (WNR) May 21, 2017 [id number] BAYRON,ADI RGE PATIENT [facility] [facility] (WNR) MEDICARE ADVANTAGE [facility] (WNR) May 21, 2017 [id number] BAYRON,ADI GOTTI PATIENT MEDICARE (WNR) MEDICARE (M) PART A Jul 19, 2014 PART A [id number] ADI VERMA PATIENT MEDICARE (WNR) MEDICARE (M) PART B Jul 19, 2014 PART B [id number] ADI VERMA PATIENT MEDICARE (WNR) MEDICARE (M) PART A Jul 19, 2014 PART A [id number] BAYRON,ADI GOTTI PATIENT MEDICARE (WNR) MEDICARE (M) PART B Jul 19, 2014 PART B [id number] ADI VERMA PATIENT MEDICARE PART D (WNR) MEDICARE (M) PART D May 21, 2022 PART D [id number] ADI VERMA PATIENT [facility] (WNR) MEDICARE ADVANTAGE [facility] (WNR) September 19, 2023 [id number] ADI VERMA PATIENT Selected Encounter This section includes the information on record at AR for the Encounter. Date/Time Encounter Type Encounter Description Reason Provider Source Sep 01, 2024 01:00 PM OFFICE O/P EST MOD 30 MIN PRIMARY CARE/MEDICINE ICD-10-CM E11.9 Type 2 diabetes mellitus without complications AUSTEN SHERMAN Encounter Template Text not used by AR Assessments - Encounter Diagnoses This section includes the primary and secondary diagnoses documented for the Encounter. Date/Time Primary/Secondary Diagnosis Diagnosis Name Provider Source Sep 01, 2024 01:22 PM PRIMARY Type 2 diabetes mellitus without complications MONIKA SHERMAN CB Sep 01, 2024 01:22 PM SECONDARY Contact with and exposure to other hazardous substances [facility] Sep 01, 2024 01:22 PM SECONDARY Essential (primary) hypertension [facility] Sep 01, 2024 01:22 PM SECONDARY Hyperlipidemia, unspecified [facility] Sep 01, 2024 01:22 PM SECONDARY Iron deficiency anemia, unspecified [facility] Sep 01, 2024 01:22 PM SECONDARY Type 2 diabetes mellitus with diabetic nephropathy [facility] Sep 01, 2024 01:22 PM SECONDARY 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 This section includes future appointments and future orders which are active, pending or scheduled. Future Appointments This section includes appointments that were scheduled to occur 6 months from the date of the Encounter, up to a maximum of 20 appointments. The data comes from all AR treatment facilities. Appointment Date/Time Appointment Type Appointme nt Facility Name Oct 21, 2024 11:30 AM AMBULATORY - MEDICINE [facility] Feb 20, 2025 10:00 AM AMBULATORY - MEDICINE [facility] Feb 27, 2025 11:00 AM AMBULATORY MEDICINE [facility] Active, Pending, and Scheduled Orders This section includes a listing of several types of active, pending, and scheduled orders, including clinic medications orders, diagnostic test orders, procedure orders and consult orders; where the start date of the order is 45 days before the date of the Encounter or 45 days after the date of theEncounter. The data comes from all AR treatment [facility]. Test Date/Time Test Type Test Details Facility Name October 15, 2024 09:22 AM Consult Order [facility] MGMT 657A4 Cons [employer] Specialist's Choice [facility] Lab Results: +/- 30 days of the encounter This section includes the Chemistry and Hematology Lab Results on record with AR for the patient. Radiology Reports and Pathology Reports are provided separately, in subsequent sections. Lab Results This section contains the Chemistry/Hematology Results that were resulted 30 days before or 30 daysafter the date of the Encounter. Date/Time Source Result Type Result - Unit Interpretation Reference Range Specimen Type Comment Aug 25, 2024 10:12 AM [facility] CBC BLOOD Specimen Type: BLOOD No comment entered. Ordering Provider: MONIKA SHERMAN Report Released Date/Time: Mar 04, 2024 01:47 PM Reporting Lab: [facility] [address] [place] [address] Performing Lab: [place] [facility] [address] [place] [address] WBC 7.3 10*3/uL 3.6-11.2 RBC 3.97 10*6/uL L 4.10-5.70 HGB 11.4 g/dL L 13.1-16.8 HCT 35.5 L 38.2-48.4 MCV 89.4 fL 80.0-100.0 MCH 28.7 pg 27.0-34.0 MCHC 32.1 g/dL L 33.0-36.0 PLT 195 10*3/uL 150-400 MPV 10.3 fL 7.5-11.2 RDW 13.0 11.8-15.1 LYMPHOCYTES, AUTO % 20.8 MONOCYTES, AUTO % 8.9 NEUTROPHILS, AUTO % 67.0 EOSINOPHILS, AUTO % 1.9 BASOPHILS, AUTO % 1.1 LYMPHOCYTES, ABSOLUTE 1.52 10*3/uL 0.77- 4.50 MONOCYTES, ABSOLUTE 0.65 10*3/uL 0.19-0. 8 NEUTROPHILS, ABSOLUTE 4.89 10*3/uL 2.10- 8.00 EOSINOPHILS, ABSOLUTE 0.14 10*3/uL 0.00- 0.60 BASOPHILS, ABSOLUTE 0.08 10*3/uL 0.00-0. 20 IMMATURE GRANS, AUTO % 0.3 IMMATURE GRANS, AUTO ABS 0.02 10*3/uL 0. 00-0.05 Aug 25, 2024 10:12 AM [facility] COMPREHENSIVE METABOLIC PANEL PLASMA Specimen Type: PLASMA No comment entered. Ordering Provider: MONIKA SHERMAN Report Released Date/Time: Mar 04, 2024 01:47 PM Reporting Lab: [place] [facility] [address] [place] [address] Performing Lab: [place] [facility] [address] [place] [address] CREATININE 1.32 mg/dL H 0.7-1.3 UREA NITROGEN 18 mg/dL 9-25 GLUCOSE 148 mg/dL H 72-99 SODIUM 140 meq/L 136-145 POTASSIUM 4.8 meq/L 3.5-5 CHLORIDE 108 meq/L H 98-107 CARBON DIOXIDE 24 meq/L 22-31 CALCIUM 9.0 mg/dL 8.4-10.4 PROTEIN 6.8 g/dL 6-8.6 ALBUMIN 4.1 g/dL 3.4-5 TOTAL BILIRUBIN 0.4 mg/dL 0.2-1.2 ALKALINE PHOSPHATASE 70 U/L 40-150 AST/SGOT 16 U/L 5-34 ALT/SGPT 13 U/L 8-40 EGFR (CKD-EPI 2020) 56 Aug 25, 2024 10:12 AM [facility] TSH (MA-PB) SERUM Specimen Typ e: SERUM No comment entered. Ordering Provider: MONIKA SHERMAN Report Released Date/Time: Mar 04, 2024 01:47 PM Reporting Lab: [place] [facility] [address] [place] [facility] Performing Lab: [place] [facility] [address] [place] [facility] TSH 5.150 u[IU]/mL H 0.47-5 FREE T4(REFLEX) 1.15 ng/dL Aug 25, 2024 10:12 AM [facility] VITAMIN D, 25-HYDROXY SERUM Specimen Type: SE RUM No comment entered. Ordering Provider: MONIKA SHERMAN Report Released Date/Time: Mar 04, 2024 01:47 PM Reporting Lab: [place] [facility] [address] [place] [address] Performing Lab: [place] [facility] [address] [place] [address] VITAMIN D, 25-HYDROXY 29.4 ng/mL L 30-96 Aug 25, 2024 10:12 AM [facility] ALBUMIN PROFILE-ih (PB) URINE Specimen Type: URINE No comment entered. Ordering Provider: MONIKA SHERMAN Report Released Date/Time: Mar 04, 2024 01:47 PM Reporting Lab: [place] [facility] [address] [place] [address] Performing Lab: [place] [facility] [address] [place] [address] URINE ALBUMIN (PB-STL) 345.85 mg/L H 0-30 uACR (PB-MA) 327.42 ug/mg CREATININE URINE/OTHERS 105.63 mg/dL Aug 25, 2024 10:12 AM [facility] HGA1C BLOOD Specimen Type: BLOOD No comment entered. Ordering Provider: MONIKA SHERMAN Report Released Date/Time: Mar 04, 2024 01:47 PM Reporting Lab: [place] [facility] [address] [place] [address] Performing Lab: [place] [facility] [address] [place] [address] HGA1C 6.8 H 4.0-6.0 Aug 25, 2024 10:12 AM [facility] CHOLESTEROL PANEL (PB) PLASMA Specimen Type: P LASMA No comment entered. Ordering Provider: MONIKA SHERMAN Report Released Date/Time: Mar 04, 2024 01:47 PM Reporting Lab: [place] [facility] [address] [place] [address] Performing Lab: [place] [facility] [address] [place] [address] CHOLESTEROL 125 mg/dL 0-200 TRIGLYCERIDE 152 mg/dL H 0-150 CALCULATED LDL 60.1 mg/dL HDL(New) 34.5 mg/dL L >40 HDL % OF TOTAL CHOLESTEROL (PB) 27.6 >25 Vital Signs: All taken on the encounter date This section contains inpatient and outpatient Vital Signs collected on the date of the Encounter. Date/Time Temperature Pulse Blood Pressure Respiratory Rate SP02 Pain Height Weight Body Mass Index Source Sep 01, 2024 01:13 PM 98 86 138/70 22 96 1 173.8 25 [facility] Social History: Smoking Status (Most current) and Tobacco Use (All prior to encounter date) This section includes the most current, and the historical, smoking and tobacco- related health factors from the AR facility where the Encounter took place. Current Smoking Status This section includes the most current smoking, or tobacco-related health factor, from the AR facility where the Encounter took place. Date/Time Current Smoking Status Comment Ruben vasquez Sep 06, 2023 02:30 PM VA-TOBACCO USER EVERY DAY [facility] Tobacco Use History This section includes a history of the smoking, or tobacco-related health factors, that were collected on or before the date of the Encounter. The data comes from the AR facility where the Encounter took place. Date/Time Smoking Status/Tobacco Use Comment F acility Sep 06, 2023 02:30 PM VA-TOBACCO USE ADVICE [facility] Sep 06, 2023 02:30 PM VA-TOBACCO USE CLOTHER IN NO [facility] Sep 06, 2023 02:30 PM VA-TOBACCO USE MED NO [facility] Sep 06, 2023 02:30 PM VA-TOBACCO USE WI 30 MIN OF WAKE UP [facility] Sep 06, 2023 02:30 PM VA-TOBACCO USER EVERY DAY [facility] Encounter Notes: All associated encounter notes This section contains the clinical notes associated to the Encounter. Date/Time Encounter Note(s) Provider Source Sep 01, 2024 01:14 PM PRIMARY CARE NURSI NG NOTE: LOCAL TITLE: PRIMARY CARE NURSING PROGRESS NOTE (TEXT) NURSING P STANDARD TITLE: PRIMARY CARE NURSING NOTE DATE OF NOTE: SEP 01, 2024@13:14 ENTRY DATE: SEP 01, 2024@13:14:19 AUTHOR: ARNULFO PARKINSON EXP COSIGNER: URGENCY: STATUS: COMPLETED PRIMARY CARE NURSING PROGRESS NOTE (TEXT) NURSING PB Has ADDENDA Established Patient TIFFANY VERMA IS A 74 YEAR OLD MALE BEING SEEN IN CLINIC SEP 01, 2024. REASON FOR VISIT: Here for 6month follow up on chronic health conditions and to review lab. Brings in bp and bs log. Are you receiving care any where other than the [facility]? No HEALTH AND SURGICAL HISTORY: Does patient report using home oxygen? No CURRENT ACTIVE MEDICATIONS FOR REVIEW: Allergies/ADRs (Tool #5) FACILITY ALLERGY/ADR -------- [facility] No Known Allergies Med. Reconciliation (Tool #1) INCLUDED IN THIS LIST: Alphabetical list of active outpatient prescriptions dispensed from this AR (local) and dispensed from another AR or DoD facility (remote) as well as inpatient orders (local pending and active), local clinic medications, locally documented non-VA medications, and local prescriptions that have or been discontinued in the past 90 days. Non-VA Meds Last Documented On: Data not found NOTE The display of VA prescriptions dispensed from another AR or [facility] facility (remote) is limited to active outpatient prescription entries matched to National Drug File at the originating site and may not include some items such as investigational drugs, compounds, etc. NOT INCLUDED IN THIS LIST: Medications self-entered by the patient into personal health records (i.e. [employer]) are NOT included in this list. Non-VA medications documented outside this AR, remote inpatient orders (regardless of status) and remote clinic medications are NOT included in this list. The patient and provider must always discuss medications the patient is taking, regardless of where the medication was dispensed or obtained. OUTPT AMLODIPINE BESYLATE 10MG TAB (Status = Active) TAKE ONE TABLET BY MOUTH ONCE A DAY FOR HIGH BLOOD PRESSURE Rx# [id number] Last Released: 05/31/24 Qty/Days Supply: Rx Expiration Date: 09/06/24 Refills Remainin Indication: FOR HIGH BLOOD PRESSURE OUTPT ATORVASTATIN CALCIUM 80MG TAB (Status = Active) TAKE ONE-HALF TABLET BY MOUTH EVERY EVENING FOR HIGH CHOLESTEROL Rx# [id number] Last Released: 05/31/24 Qty/Days Supply: Rx Expiration Date: 09/06/24 Refills Remainin Indication: FOR HIGH CHOLESTEROL OUTPT CHOLECALCIF 50MCG (D3-2,000UNIT) TAB (Status = Active) TAKE TWO TABLETS BY MOUTH ONCE A DAY FOR VITAMIN D DEFICIENCY Rx# [id number] Last Released: 08/27/24 Qty/Days Supply: 200/90 Rx Expiration Date: 08/27/25 Refills Remainin Indication: FOR VITAMIN D DEFICIENCY OUTPT GLIMEPIRIDE 2MG TAB (Status = Active) TAKE ONE-HALF TABLET BY MOUTH EVERY MORNING FOR DIABETES TAKE WITH BREAKFAST OR FIRST FOOD. Rx# [id number] Last Released: 06/04/24 Qty/Days Supply: 45 Rx Expiration Date: 03/05/25 Refills Remainin Indication: FOR DIABETES OUTPT LOSARTAN 50MG TAB (Status = Active) TAKE ONE-HALF TABLET BY MOUTH ONCE A DAY FOR HIGH BLOOD PRESSURE Rx# [id number] Last Released: 06/04/24 Qty/Days Supply: 45 Rx Expiration Date: 09/06/24 Refills Remainin Indication: FOR HIGH BLOOD PRESSURE OUTPT METFORMIN HCL 1000MG TAB (Status = Active) TAKE ONE TABLET BY MOUTH TWICE A DAY WITH MEALS FOR DIABETES TAKE WITH FOOD. AVOID ALCOHOL. DISCONTINUE BEFORE GETTING XRAY DYE. Rx# [id number] Last Released: 06/04/24 Qty/Days Supply: 180/ Rx Expiration Date: 09/06/24 Refills Remainin Indication: FOR DIABETES OUTPT METOPROLOL TARTRATE 100MG TAB (Status = Active) TAKE ONE TABLET BY MOUTH TWICE A DAY FOR HIGH BLOOD PRESSURE TAKE WITH OR IMMEDIATELY FOLLOWING FOOD. Rx# [id number] Last Released: 05/31/24 Qty/Days Supply: 180/90 Rx Expiration Date: 09/06/24 Refills Remainin Indication: FOR HIGH BLOOD PRESSURE OUTPT OMEPRAZOLE 20MG EC CAP (Status = Active) TAKE ONE CAPSULE BY MOUTH EVERY MORNING BEFORE A MEAL FOR GASTROESOPHAGEAL REFLUX DISEASE TAKE 30 MINUTES PRIOR TO FOOD. Rx# [id number] Last Released: 05/31/24 Qty/Days Supply: 9090 Rx Expiration Date: 03/05/25 Refills Remainin Indication: FOR GASTROESOPHAGEAL REFLUX DISEASE SUPPLIES PHARMACY TERMS AND POSSIBLE PATIENT ACTIONS INPT = AR inpatient order IV = AR intravenous medication OUTPT = AR outpatient prescription PHARMACY POSSIBLE PATIENT TERMS EXPLANATION ACTIONS -------- --- ACTIVE A prescription that can be If you have refills, filled at the local AR pharmacy. you may request a refill of this prescription from your VA pharmacy. CLINIC A medication you received during If you have questions a visit to a AR clinic or about this medication emergency department. contact your AR healthcare team. DISCONTINUED A prescription your provider has Contact your AR stopped. It is no longer healthcare team if you available to be sent to you or need more of this picked up at the AR pharmacy medication. window. A prescription which is [...] the VA. Or, it may be an asqf-umt-vcjvdho (OTC), herbal, dietary supplements or sample medication. [...] before this medication now. you run out. ======== Medication list reviewed with Patient not taking Vitamin D IS PATIENT TAKING ANY OVER THE COUNTER MEDICATIONS, SUCH VITAMINS OR HERBAL SUPPLEMENTS, INCLUDING ANY MEDICATIONS PRESCRIBED BY ANOTHER PHYSICIAN? Yes, List: Iron 65mg daily Does patient have any new allergies to report since last visit? VITALS: TEMPERATURE: 98 F [36.7 C] (09/01/2024 13:13) BP: 138/70 (09/01/2024:) RESP: 22 (09/01/2024:) PULSE: 86 (09/01/2024:) HT: 70 in [177.8 cm] (09/06/2023 15:07) WT: 173.8 lb [78.83 kg] (09/01/2024:) BMI: 25.0 PAIN ASSESSMENT: (Most Recent Pain Score in Vitals Package: 1 (09/01/2024 13:13) ) The patient indicated that they and [...] chickenpox, or zoster in last 30 days. STRESS: Thank you for your service. Now let us serve you. At the [facility], we strive to provide you with exceptional [...] Not At All SPIRITUAL ASSESSMENT: Are there latter day practices or spiritual concerns you want the welding machine setter, your physician, and other health care team members to immediately know about? Patient advised to call the clinic for any concerns, questions, or symptoms. Patient and/or caregiver verbalized understanding of plan of care. /es/ ARNULFO PARKINSON LPN Signed: 09/01/2024 13:22 09/01/2024 ADDENDUM STATUS: COMPLETED Per [facility] Directive 1605.06, wristband documentation: Patient wristband was removed and destroyed by (staff name) arnulfo parkinson lpn and placed in the designated [employer] bin. /sarah/ ARNULFO PARKINSON LPN Signed: 09/01/2024 13:37 ARNULFO PARKINSON [facility] Sep 01, 2024 01:09 PM PRIMARY CARE PROGR ESS NOTE: LOCAL TITLE: PRIMARY CARE CLINIC PROGRESS NOTE PB STANDARD TITLE: PRIMARY CARE PROGRESS NOTE DATE OF NOTE: SEP 01, 2024@13:09 ENTRY DATE: SEP 01, 2024@13:09:33 AUTHOR: MONIKA SHERMAN COSIGNER: URGENCY: STATUS: COMPLETED PRIMARY CARE CLINIC PROGRESS NOTE PB Has ADDENDA SUBJECTIVE: TIFFANY VERMA is a 74 years old MALE. HPI: Presents to the clinic today for a periodic health maintenance visit. Last seen March 04, 2024. He reports . Non-VA Primary Care Provider Dr. 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 OVERSEAS STATIONS/DEPLOYMENTS: no MAJOR ACCIDENTS OR INJURIES WHILE ON ACTIVE DUTY: no MST: no SURGICAL HX: left cataracts left foot amputation lap cholecystectomy Problem List 1) Diabetes Mellitus Type 2 ([facility] [id number]) 2) Diabetic retinopathy 3) Diabetic nephropathy 4) Vitamin D Deficiency ([facility] [id number]) 5) Hyperlipidemia ([facility] [id number]) 6) HTN - Hypertension ([facility] [id number]) 7) Exposure to potentially hazardous substance ([facility] [id number]) Active Outpatient Medications (including Supplies): Active Outpatient Medications Status 1) AMLODIPINE BESYLATE 10MG TAB TAKE ONE TABLET BY MOUTH ONCE A ACTIVE DAY Indication: FOR HIGH BLOOD PRESSURE 2) ATORVASTATIN CALCIUM 80MG TAB TAKE ONE-HALF TABLET BY MOUTH ACTIVE EVERY EVENING Indication: FOR HIGH CHOLESTEROL 3) CHOLECALCIF 50MCG (D3-2,000UNIT) TAB TAKE TWO TABLETS BY ACTIVE MOUTH ONCE A DAY Indication: FOR VITAMIN D DEFICIENCY 4) GLIMEPIRIDE 2MG TAB TAKE ONE-HALF TABLET BY MOUTH EVERY ACTIVE MORNING TAKE WITH BREAKFAST OR FIRST FOOD. Indication: FOR DIABETES 5) LOSARTAN 50MG TAB TAKE ONE-HALF TABLET BY MOUTH ONCE A DAY ACTIVE Indication: FOR HIGH BLOOD PRESSURE 6) METFORMIN HCL 1000MG TAB TAKE ONE TABLET BY MOUTH TWICE A ACTIVE DAY WITH MEALS TAKE WITH FOOD. AVOID ALCOHOL. DISCONTINUE BEFORE GETTING XRAY DYE. Indication: FOR DIABETES 7) METOPROLOL TARTRATE 100MG TAB TAKE ONE TABLET BY MOUTH TWICE ACTIVE A DAY TAKE WITH OR IMMEDIATELY FOLLOWING FOOD. Indication: FOR HIGH BLOOD PRESSURE 8) OMEPRAZOLE 20MG EC CAP TAKE ONE CAPSULE BY MOUTH EVERY ACTIVE MORNING BEFORE A MEAL TAKE 30 MINUTES PRIOR TO FOOD. Indication: FOR GASTROESOPHAGEAL REFLUX DISEASE Allergies: Patient has answered NKA Review of [...] SI/HI; denies nightmares OBJECTIVE: Vital Signs Temperature: 98 F [36.7 C] (09/01/2024 13:13) Respiratory Rate: 22 (09/01/2024 13:13) Pulse Rate: 86 (09/01/2024 13:13) Blood Pressure: 138/70 (09/01/2024 13:13) HT: 70 in [177.8 cm] (09/06/2023 15:07) WT: 173.8 lb [78.83 kg] (09/01/2024 13:13) BMI: 25.0 96% (09/01/2024 13:13) Physical Exam General: NAD noted, A&Ox3, pleasant, [...] Affect normal, answers questions appropriately throughout visit A/P: ASSESSMENT and PLAN Health Maintenance: Labs reviewed with patient and printout given to patient. Discussed preventative health to include diet and exercise as well as immunizations. Diabetes Mellitus Type 2- comntrolled on metformin and Amaryl Diabetic retinopathy-followed by ophthalmology Diabetic nephropathy- stable Vitamin D Deficiency- restart on supplement Iron def. anemia- on supplement Hyperlipidemia-controlled on atorvastatin HTN- controlled on losartan, metoprolol, and amlodipine GERD- controlled on omeprazole Exposure to potentially hazardous substance Stable. Discussed [...] appointments. Medications Reconciled. See AVS given to . Time spent 30 minutes. /sarah/ Monika Sherman MD [facility] Signed: 09/01/2024 13:22 09/01/2024 ADDENDUM STATUS: COMPLETED HPI: No acute complaints overall doing well. /sarah/ Monika Sherman MD [facility] Signed: 09/01/2024 13:23 MONIKA SHERMAN [facility]
[2025-01-08] VITALS (31 sets, daily range): BP systolic 107–139; BP diastolic 39–71; PULSE 67–93; RESP 20–38; TEMP 34.6–35.6; O2SAT 73–89; BMI 24.8
--- OUTSIDE RECORDS SUMMARY | 2025-01-08 08:44 | XMS_ITS | Continuity of Care Document ---
Author Name [facility] Organization [facility] Care Team Providers Care Web Site Administrator Name Role Phone [facility] Unavailable Unavailable Problems Combined list of problems from Department of Defense and [facility] Affairs facilities. It does not include entries that were removed or entered in error. Problem Status Onset Date Problem Type Date of Resolution Comments Source Anemia Active Condition [facility]ign [facility] Diabetes mellitus type 2 Active Condition [facility] Diabetes Mellitus Type 2 (SCT 99575268) Active Condition [place] [facility] Diabetic macular edema (SCT 411320593) - Background diabetic retinopathy (ICD-9- Active Condition [facility] Diabetic nephropathy Active Condition [place] [facility] Diabetic retinopathy Active Condition [place] [facility] Exposure to potentially hazardous substance ([facility] [id number]) Active Condition Sep 06 4 Entered By: TIERA ROBLERO Comment: Entered automatically through MATTHEW Problem List documentation program [facility] History of amputation of foot Active Condition Apr 06 022 Entered By: BREANA WHIPPLE Comment: LT [facility] History of cholecystectomy Active Condition Jun 25, 2019 Entered By: BREANA WHIPPLE Comment: ON 06/09/2019( NONVA) [facility] HTN - Hypertension (SCT 49219778) Active Condition [place] [facility] Hyperlipidemia Active Condition [facility] Hyperlipidemia (SCT 31042868) Active Condition [place] [facility] Hypomagnesemia Active Condition [facility] Iron deficiency anemia Active Condition [place] [facility] Peripheral arterial occlusive disease Active Condition [facility] Polyp of colon Active Condition [facility] Proteinuria (SCT 38768012) Active Condition [facility] Retinopathy Active Condition [facility] Severe nonproliferative diabetic retinopathy (SCT 365348981) - Diabetes with oph Active Condition [facility] Severe nonproliferative diabetic retinopathy (SCT 950623844) - Severe nonprolife Active Condition [facility] Tobacco user Active [facility] Vitamin D deficiency Active Condition [facility] Vitamin D Deficiency ([facility] 34787648) Active Condition [place] [facility] Diabetic macular edema ([facility] 433734153) - Diabetic macular edema (ICD-9-CM 362.07 Inactive Condition 10/11/2020 [facility] Diagnosis: ICD-10-CM E11.9 Type 2 diabetes mellitus without complications Active Diagnosis [facility] Diagnosis: ICD-10-CM H35.9 Unspecified retinal disorder Active Diagnosis [facility] Medications Combined list of outpatient medications from Department of Defense and [facility] Affairs facilities.Medications provided include 1) outpatient medications from the last 15 months, and 2) patient-reported medications. Medication Details Route Status Patient Instructions Prescription Expires Prescription Number Last Dispense Date Ordering Provider Order Date Order Qty Source AMLODIPINE BESYLATE 10MG TAB TAKE ONE TABLET BY MOUTH ONCE A DAY FOR HIGH BLOOD PRESSURE ORAL ACTIVE 09/12/2025 [id number] 5 [facility] [address] [place], [place] [address] AMLODIPINE BESYLATE 10MG TAB TAKE ONE TABLET BY MOUTH ONCE A DAY FOR HIGH BLOOD PRESSURE ORAL DISCONT INUED 09/06/2024 [id number] 5 [facility] [address] [place] [address] [facility] ASPIRIN 81MG TAB,EC TAKE ONE TABLET BY MOUTH EVERY DAY ORAL ACTIVE Keira WHIPPLEINA 2020 [facility] ATORVASTATI N CA 80MG TAB TAKE ONE-HALF TABLET BY MOUTH EVERY EVENING FOR HIGH CHOLESTE ROL ORAL ACTIVE 12/09/2025 [id number] 5 AL[facility] [address] [place] [address] [facility] ATORVASTATI N CA 80MG TAB TAKE ONE-HALF TABLET BY MOUTH EVERY EVENING FOR HIGH CHOLESTE ROL ORAL DISCONT INUED 09/06/2024 [id number] 5 [place] [address] [place] [address] [facility] CHOLECALCIF RED 50MCG (2,000UNIT) TAB TAKE TWO TABLETS BY MOUTH ONCE A DAY FOR VITAMIN D DEFICIEN CY ORAL ACTIVE 08/27/2025 [id number] 5 Javier BALTAZAR OHN Q 2024 200 [facility] CHOLECALCIF RED 50MCG (2,000UNIT) TAB TAKE ONE TABLET BY MOUTH EVERY DAY ORAL ACTIVE SOLE,R OZINA 2019 [facility] CYANOCOBALA MIN 1000MCG TAB TAKE ONE TABLET BY MOUTH EVERY DAY ORAL ACTIVE SOLE,R OZINA 2019 [facility] GLIMEPIRIDE 2MG TAB TAKE ONE-HALF TABLET BY MOUTH EVERY MORNING FOR DIABETES TAKE WITH BREAKFAS T OR FIRST FOOD. ORAL ACTIVE 03/05/2025 [id number] 5 MEMO MARQUEZ 2023 45 [facility] LOSARTAN 50MG TAB TAKE ONE-HALF TABLET BY MOUTH ONCE A DAY FOR HIGH BLOOD PRESSURE ORAL ACTIVE 09/12/2025 [id number] 5 MEMO MARQUEZ 2024 45 [facility] LOSARTAN 50MG TAB TAKE ONE-HALF TABLET BY MOUTH ONCE A DAY FOR HIGH BLOOD PRESSURE ORAL DISCONT INUED 09/06/2024 [id number] 5 MEMO MARQUEZ 2023 45 [facility] METFORMIN HCL 1000MG TAB TAKE ONE TABLET BY MOUTH TWICE A DAY WITH MEALS FOR DIABETES TAKE WITH FOOD. AVOID ALCOHOL. DISCONTI NUE BEFORE GETTING XRAY DYE. ORAL ACTIVE 10/15/2025 [id number] 5 MARGARITA MARQUEZMY 2024 180 [facility] METFORMIN HCL 1000MG TAB TAKE ONE TABLET BY MOUTH TWICE A DAY WITH MEALS FOR DIABETES TAKE WITH FOOD. AVOID ALCOHOL. DISCONTI NUE BEFORE GETTING XRAY DYE. ORAL DISCONT INUED 09/06/2024 [id number] 5 MARGARITA MARQUEZMY 2023 180 [facility] METOPROLOL TARTRATE 100MG TAB TAKE ONE TABLET BY MOUTH TWICE A DAY FOR HIGH BLOOD PRESSURE TAKE WITH OR IMMEDIAT CORBY FOLLOWIN G FOOD. ORAL ACTIVE 10/15/2025 [id number] 5 MARGARITA MARQUEZMY 2024 180 [facility] METOPROLOL TARTRATE 100MG TAB TAKE ONE TABLET BY MOUTH TWICE A DAY FOR HIGH BLOOD PRESSURE TAKE WITH OR IMMEDIAT CORBY FOLLOWIN G FOOD. ORAL DISCONT INUED 09/06/2024 [id number] 5 [place], MEMO 2023 180 [facility] OMEPRAZOLE 20MG CAP,EC TAKE ONE CAPSULE BY MOUTH EVERY MORNING BEFORE A MEAL FOR GASTROES OPHAGEAL REFLUX DISEASE TAKE 30 MINUTES PRIOR TO FOOD. ORAL ACTIVE 03/05/2025 [id number] 5 [place], MEMO 2023 90 [facility] Allergies, Adverse Reactions, Alerts Combined list of allergies from Department of Defense and Veterans Affairs facilities. It does not include entries that were removed or entered in error. Substance Category Reaction Severity Reaction type Status Date Reported Comments Source LISINOPRIL Propensity to adverse reactions to drug (finding) Cough active 2 [facility] Immunizations Combined list of available immunizations from the Department of Defense and Veterans Affairs facilities. Immunization Series Date Given Administered By Site Reaction Lot Number CVX Code Drug Clinical Documentation Specialist Status Comments Source INFLUENZA, HIGH-DOSE, TRIVALENT, PF 2023 MERRICK VILLALPANDO LEFT DELTO ID [id number] 135 complet ed [facility] ZOSTER RECOMBINANT 2 2023 MERRICK VILLALPANDO RIGHT DELTO ID [id number] 187 complet ed [facility] ZOSTER RECOMBINANT 1 2023 REGGIE TATE RIGHT DELTO ID [id number] 187 complet ed [facility] INFLUENZA, INJECTABLE, QUADRIVALENT, PRESERVATIVE FREE 2022 KAYLAH DANIELS RIGHT DELTO ID [id number] 150 complet ed [facility] AT [facility] INFLUENZA, INJECTABLE, QUADRIVALENT, PRESERVATIVE FREE 2021 150 complet ed [facility] COVID-19 (MODERNA), MRNA, LNP-S, PF, 100 MCG OR 50 MCG DOSE 3 2020 207 complet ed MOD; [id number]; 2 [facility] INFLUENZA, INJECTABLE, QUADRIVALENT, PRESERVATIVE FREE 2020 150 complet ed [facility] COVID-19 (MODERNA), MRNA, LNP-S, PF, 100 MCG/0.5 ML DOSE 2 2020 207 complet ed MOD; [id number]; 1 [facility] COVID-19 (MODERNA), MRNA, LNP-S, PF, 100 MCG/0.5 ML DOSE 1 2020 207 complet ed MOD; [id number]; 1 [facility] INFLUENZA, INJECTABLE, QUADRIVALENT 2018 NONE 158 complet ed Completed Series, [facility] W PNEUMOCOCCAL POLYSACCHARID E [id number] 2017 33 complet ed [facility] PNEUMOCOCCAL CONJUGATE PCV 13 2015 133 complet ed [facility] TDAP 2015 NONE 115 complet ed [id number] 10/01/16 [facility] INFLUENZA, UNSPECIFIED FORMULATION 2014 88 complet ed [facility] TD(ADULT) UNSPECIFIED FORMULATION 2013 139 complet ed [facility] Results Combined list of recent chemistry, hematology and other laboratory results from Department of Defense and Veterans Affairs, ranging from 15 months to all on record, depending upon the facility. Order Name Results Value Reference Range Date Interpretation Specimen Comments Source CBC LEUKOCYTES [#/VOLUME] IN BLOOD BY AUTOMATED COUNT 7.3 10*3/u L 3.6 - 11.2 08/25 Specimen Type: BLOOD No comment entered. Ordering Provider: MEMO MARQUEZ Report Released Date/Time : Mar 04, 2024 01:47 PM Reporting Lab: [place] [facility] [address] [place] [address] Performin g Lab: [place] [facility] [address] [place] [address] [facility] CBC ERYTHROCYTES [#/VOLUME] IN BLOOD BY AUTOMATED COUNT 3.97 10*6/u L 4.10 - 5.70 08/25 L Specimen Type: BLOOD No comment entered. Ordering Provider: MEMO MARQUEZ Report Released Date/Time : Mar 04, 2024 01:47 PM Reporting Lab: [place] [facility] [address] [place] [address] Performin g Lab: [place] [facility] [address] [place] [address] [facility] CBC HEMOGLOBIN [MASS/VOLUME] IN BLOOD 11.4 g/dL 13.1 - 16.8 08/25 L Specimen Type: BLOOD No comment entered. Ordering Provider: MEMO MARQUEZ Report Released Date/Time : Mar 04, 2024 01:47 PM Reporting Lab: [place] [facility] [address] [place] [address] Performin g Lab: [place] [facility] [address] [place] [address] [facility] CBC HEMATOCRIT [VOLUME FRACTION] OF BLOOD 35.5 38.2 - 48.4 08/25 L Specimen Type: BLOOD No comment entered. Ordering Provider: MEMO MARQUEZ Report Released Date/Time : Mar 04, 2024 01:47 PM Reporting Lab: [place] [facility] [address] [place] [address] Performin g Lab: [place] [facility] [address] [place] [address] [facility] CBC MCV [ENTITIC VOLUME] BY AUTOMATED COUNT 89.4 fL 80.0 - 100.0 08/25 Specimen Type: BLOOD No comment entered. Ordering Provider: MEMO MARQUEZ Report Released Date/Time : Mar 04, 2024 01:47 PM Reporting Lab: [place] [facility] [address] [place] [address] Performin g Lab: [place] [facility] [address] [place] [address] [facility] CBC MCH [ENTITIC MASS] BY AUTOMATED COUNT 28.7 pg 27.0 - 34.0 08/25 Specimen Type: BLOOD No comment entered. Ordering Provider: MEMO MARQUEZ Report Released Date/Time : Mar 04, 2024 01:47 PM Reporting Lab: [place] [facility] [address] [place] [address] Performin g Lab: [place] [facility] [address] [place] [address] [facility] CBC MCHC [MASS/VOLUME] BY AUTOMATED COUNT 32.1 g/dL 33.0 - 36.0 08/25 L Specimen Type: BLOOD No comment entered. Ordering Provider: MEMO MARQUEZ Report Released Date/Time : Mar 04, 2024 01:47 PM Reporting Lab: [place] [facility] [address] [place] [address] Performin g Lab: [place] [facility] [address] [place] [address] [facility] CBC PLATELETS [#/VOLUME] IN BLOOD BY AUTOMATED COUNT 195 10*3/u L 150 - 400 08/25 Specimen Type: BLOOD No comment entered. Ordering Provider: MEMO MARQUEZ Report Released Date/Time : Mar 04, 2024 01:47 PM Reporting Lab: [place] [facility] [address] [place] [address] Performin g Lab: [place] [facility] [address] [place] [address] [facility] CBC PLATELET MEAN VOLUME [ENTITIC VOLUME] IN BLOOD BY AUTOMATED COUNT 10.3 fL 7.5 - 11.2 08/25 Specimen Type: BLOOD No comment entered. Ordering Provider: MEMO MARQUEZ Report Released Date/Time : Mar 04, 2024 01:47 PM Reporting Lab: [place] [facility] [address] [place] [address] Performin g Lab: [place] [facility] [address] [place] [address] [facility] CBC ERYTHROCYTE DISTRIBUTION WIDTH [RATIO] BY AUTOMATED COUNT 13.0 11.8 - 15.1 08/25 Specimen Type: BLOOD No comment entered. Ordering Provider: MEMO MARQUEZ Report Released Date/Time : Mar 04, 2024 01:47 PM Reporting Lab: [place] [facility] [address] [place] [address] Performin g Lab: [place] [facility] [address] [place] [address] [facility] CBC LYMPHOCYTES/1 00 LEUKOCYTES IN BLOOD BY AUTOMATED COUNT 20.8 08/25 Specimen Type: BLOOD No comment entered. Ordering Provider: MEMO MARQUEZ Report Released Date/Time : Mar 04, 2024 01:47 PM Reporting Lab: [place] [facility] [address] [place] [address] Performin g Lab: [place] [facility] [address] [place] [address] [facility] CBC MONOCYTES/100 LEUKOCYTES IN BLOOD BY AUTOMATED COUNT 8.9 08/25 Specimen Type: BLOOD No comment entered. Ordering Provider: MEMO MARQUEZ Report Released Date/Time : Mar 04, 2024 01:47 PM Reporting Lab: [place] [facility] [address] [place] [address] Performin g Lab: [place] [facility] [address] [place] [address] [facility] CBC NEUTROPHILS/1 00 LEUKOCYTES IN BLOOD BY AUTOMATED COUNT 67.0 08/25 Specimen Type: BLOOD No comment entered. Ordering Provider: MEMO MARQUEZ Report Released Date/Time : Mar 04, 2024 01:47 PM Reporting Lab: [place] [facility] [address] [place] [address] Performin g Lab: [place] [facility] [address] [place] [address] [facility] CBC EOSINOPHILS/1 00 LEUKOCYTES IN BLOOD BY AUTOMATED COUNT 1.9 08/25 Specimen Type: BLOOD No comment entered. Ordering Provider: MEMO MARQUEZ Report Released Date/Time : Mar 04, 2024 01:47 PM Reporting Lab: [place] [facility] [address] [place] [address] Performin g Lab: [place] [facility] [address] [place] [address] [facility] CBC BASOPHILS/100 LEUKOCYTES IN BLOOD BY AUTOMATED COUNT 1.1 08/25 Specimen Type: BLOOD No comment entered. Ordering Provider: MEMO MARQUEZ Report Released Date/Time : Mar 04, 2024 01:47 PM Reporting Lab: [place] [facility] [address] [place] [address] Performin g Lab: [place] [facility] [address] [place] [address] [facility] CBC LYMPHOCYTES [#/VOLUME] IN BLOOD BY AUTOMATED COUNT 1.52 10*3/u L 0.77 - 4.50 08/25 Specimen Type: BLOOD No comment entered. Ordering Provider: MEMO MARQUEZ Report Released Date/Time : Mar 04, 2024 01:47 PM Reporting Lab: [place] [facility] [address] [place] [address] Performin g Lab: [place] [facility] [address] [place] [address] [facility] CBC MONOCYTES [#/VOLUME] IN BLOOD BY AUTOMATED COUNT 0.65 10*3/u L 0.19 - 0.8 08/25 Specimen Type: BLOOD No comment entered. Ordering Provider: MEMO MARQUEZ Report Released Date/Time : Mar 04, 2024 01:47 PM Reporting Lab: [place] [facility] [address] [place] [address] Performin g Lab: [place] [facility] [address] [place] [address] [facility] CBC NEUTROPHILS [#/VOLUME] IN BLOOD BY AUTOMATED COUNT 4.89 10*3/u L 2.10 - 8.00 08/25 Specimen Type: BLOOD No comment entered. Ordering Provider: MEMO MARQUEZ Report Released Date/Time : Mar 04, 2024 01:47 PM Reporting Lab: [place] [facility] [address] [place] [address] Performin g Lab: [place] [facility] [address] [place] [address] [facility] CBC EOSINOPHILS [#/VOLUME] IN BLOOD BY AUTOMATED COUNT 0.14 10*3/u L 0.00 - 0.60 08/25 Specimen Type: BLOOD No comment entered. Ordering Provider: MEMO MARQUEZ Report Released Date/Time : Mar 04, 2024 01:47 PM Reporting Lab: [place] [facility] [address] [place] [address] Performin g Lab: [place] [facility] [address] [place] [address] [facility] CBC BASOPHILS [#/VOLUME] IN BLOOD BY AUTOMATED COUNT 0.08 10*3/u L 0.00 - 0.20 08/25 Specimen Type: BLOOD No comment entered. Ordering Provider: MEMO MARQUEZ Report Released Date/Time : Mar 04, 2024 01:47 PM Reporting Lab: [place] [facility] [address] [place] [address] Performin g Lab: [place] [facility] [address] [place] [address] [facility] CBC IMMATURE GRANULOCYTES/ 100 LEUKOCYTES IN BLOOD BY AUTOMATED COUNT 0.3 08/25 Specimen Type: BLOOD No comment entered. Ordering Provider: MEMO MARQUEZ Report Released Date/Time : Mar 04, 2024 01:47 PM Reporting Lab: [place] [facility] [address] [place] [address] Performin g Lab: [place] [facility] [address] [place] [address] [facility] CBC IMMATURE GRANULOCYTES [#/VOLUME] IN BLOOD BY AUTOMATED COUNT 0.02 10*3/u L 0.00 - 0.05 08/25 Specimen Type: BLOOD No comment entered. Ordering Provider: MEMO MARQUEZ Report Released Date/Time : Mar 04, 2024 01:47 PM Reporting Lab: [place] [facility] [address] [place] [address] Performin g Lab: [place] [facility] [address] [place] [address] [facility] CHOLESTEROL PANEL (PB) CHOLESTEROL [MASS/VOLUME] IN SERUM OR PLASMA 125 mg/dL 0 - 200 08/25 Specimen Type: PLASMA No comment entered. Ordering Provider: MEMO MARQUEZ Report Released Date/Time : Mar 04, 2024 01:47 PM Reporting Lab: [place] [facility] [address] [place] [address] Performin g Lab: [place] [facility] [address] [place] [address] [facility] CHOLESTEROL PANEL (PB) TRIGLYCERIDE [MASS/VOLUME] IN SERUM OR PLASMA 152 mg/dL 0 - 150 08/25 H Specimen Type: PLASMA No comment entered. Ordering Provider: MEMO MARQUEZ Report Released Date/Time : Mar 04, 2024 01:47 PM Reporting Lab: [place] [facility] [address] [place] [address] Performin g Lab: [place] [facility] [address] [place] [address] [facility] CHOLESTEROL PANEL (PB) CHOLESTEROL IN LDL [MASS/VOLUME] IN SERUM OR PLASMA BY CALCULATION 60.1 mg/dL 08/25 Specimen Type: PLASMA No comment entered. Ordering Provider: MEMO MARQUEZ Report Released Date/Time : Mar 04, 2024 01:47 PM Reporting Lab: [place] [facility] [address] [place] [address] Performin g Lab: [place] [facility] [address] [place] [address] [facility] CHOLESTEROL PANEL (PB) CHOLESTEROL IN HDL [MASS/VOLUME] IN SERUM OR PLASMA 34.5 mg/dL 40 08/25 L Specimen Type: PLASMA No comment entered. Ordering Provider: MEMO MARQUEZ Report Released Date/Time : Mar 04, 2024 01:47 PM Reporting Lab: [place] [facility] [address] [place] [address] Performin g Lab: [place] [facility] [address] [place] [address] [facility] CHOLESTEROL PANEL (PB) CHOLESTEROL IN HDL/CHOLESTER OL.TOTAL [MASS RATIO] IN SERUM OR PLASMA 27.6 25 08/25 Specimen Type: PLASMA No comment entered. Ordering Provider: MEMO MARQUEZ Report Released Date/Time : Mar 04, 2024 01:47 PM Reporting Lab: [place] [facility] [address] [place] [address] Performin g Lab: [place] [facility] [address] [place] [address] [facility] COMPREHENSI VE METABOLIC PANEL CREATININE [MASS/VOLUME] IN SERUM OR PLASMA 1.32 mg/dL 0.7 - 1.3 08/25 H Specimen Type: PLASMA No comment entered. Ordering Provider: MEMO MARQUEZ Report Released Date/Time : Mar 04, 2024 01:47 PM Reporting Lab: [place] [facility] [address] [place] [address] Performin g Lab: [place] [facility] [address] [place] [address] [facility] COMPREHENSI VE METABOLIC PANEL UREA NITROGEN [MASS/VOLUME] IN SERUM OR PLASMA 18 mg/dL 9 - 25 08/25 Specimen Type: PLASMA No comment entered. Ordering Provider: MEMO MARQUEZ Report Released Date/Time : Mar 04, 2024 01:47 PM Reporting Lab: [place] [facility] [address] [place] [address] Performin g Lab: [place] [facility] [address] [place] [address] 8 [facility] COMPREHENSI VE METABOLIC PANEL GLUCOSE [MASS/VOLUME] IN SERUM OR PLASMA 148 mg/dL 72 - 99 08/25 H Specimen Type: PLASMA No comment entered. Ordering Provider: MEMO MARQUEZ Report Released Date/Time : Mar 04, 2024 01:47 PM Reporting Lab: [place] [facility] [address] [place] [address] Performin g Lab: [place] [facility] [address] [place] [address] [facility] COMPREHENSI VE METABOLIC PANEL SODIUM [MOLES/VOLUME ] IN SERUM OR PLASMA 140 meq/L 136 - 145 08/25 Specimen Type: PLASMA No comment entered. Ordering Provider: MEMO MARQUEZ Report Released Date/Time : Mar 04, 2024 01:47 PM Reporting Lab: [place] [facility] [address] [place] [address] Performin g Lab: [place] [facility] [address] [place] [address] [facility] COMPREHENSI VE METABOLIC PANEL POTASSIUM [MOLES/VOLUME ] IN SERUM OR PLASMA 4.8 meq/L 3.5 - 5 08/25 Specimen Type: PLASMA No comment entered. Ordering Provider: MEMO MARQUEZ Report Released Date/Time : Mar 04, 2024 01:47 PM Reporting Lab: [place] [facility] [address] [place] [address] Performin g Lab: [place] [facility] [address] [place] [address] [facility] COMPREHENSI VE METABOLIC PANEL CHLORIDE [MOLES/VOLUME ] IN SERUM OR PLASMA 108 meq/L 98 - 107 08/25 H Specimen Type: PLASMA No comment entered. Ordering Provider: MEMO MARQUEZ Report Released Date/Time : Mar 04, 2024 01:47 PM Reporting Lab: [place] [facility] [address] [place] [address] Performin g Lab: [place] [facility] [address] [place] [address] 8 [facility] COMPREHENSI VE METABOLIC PANEL CARBON DIOXIDE, TOTAL [MOLES/VOLUME ] IN SERUM OR PLASMA 24 meq/L 22 - 31 08/25 Specimen Type: PLASMA No comment entered. Ordering Provider: MEMO MARQUEZ Report Released Date/Time : Mar 04, 2024 01:47 PM Reporting Lab: [place] [facility] [address] [place] [address] 8 Performin g Lab: [place] [facility] [address] [place] [address] 8 [facility] COMPREHENSI VE METABOLIC PANEL CALCIUM [MASS/VOLUME] IN SERUM OR PLASMA 9.0 mg/dL 8.4 - 10.4 08/25 Specimen Type: PLASMA No comment entered. Ordering Provider: MEMO MARQUEZ Report Released Date/Time : Mar 04, 2024 01:47 PM Reporting Lab: [place] [facility] [address] [place] [address] 8 Performin g Lab: [place] [facility] [address] [place] [address] 8 [facility] COMPREHENSI VE METABOLIC PANEL PROTEIN [MASS/VOLUME] IN SERUM OR PLASMA 6.8 g/dL 6 - 8.6 08/25 Specimen Type: PLASMA No comment entered. Ordering Provider: MEMO MARQUEZ Report Released Date/Time : Mar 04, 2024 01:47 PM Reporting Lab: [place] [facility] [address] [place] [address] 8 Performin g Lab: [place] [facility] [address] [place] [address] 8 [facility] COMPREHENSI VE METABOLIC PANEL ALBUMIN [MASS/VOLUME] IN SERUM OR PLASMA 4.1 g/dL 3.4 - 5 08/25 Specimen Type: PLASMA No comment entered. Ordering Provider: MEMO MARQUEZ Report Released Date/Time : Mar 04, 2024 01:47 PM Reporting Lab: [place] [facility] [address] [place] [address] Performin g Lab: [place] [facility] [address] [place] [address] 8 [facility] COMPREHENSI VE METABOLIC PANEL BILIRUBIN.TOT AL [MASS/VOLUME] IN SERUM OR PLASMA 0.4 mg/dL 0.2 - 1.2 08/25 Specimen Type: PLASMA No comment entered. Ordering Provider: MEMO MARQUEZ Report Released Date/Time : Mar 04, 2024 01:47 PM Reporting Lab: [place] [facility] [address] [place] [address] 8 Performin g Lab: [place] [facility] [address] [place] [address] 8 [facility] COMPREHENSI VE METABOLIC PANEL ALKALINE PHOSPHATASE [ENZYMATIC ACTIVITY/VOLU ME] IN SERUM OR PLASMA 70 U/L 40 - 150 08/25 Specimen Type: PLASMA No comment entered. Ordering Provider: MEMO MARQUEZ Report Released Date/Time : Mar 04, 2024 01:47 PM Reporting Lab: [place] [facility] [address] [place] [address] 8 Performin g Lab: [place] [facility] [address] [place] [address] 8 [facility] COMPREHENSI VE METABOLIC PANEL ASPARTATE AMINOTRANSFER ASE [ENZYMATIC ACTIVITY/VOLU ME] IN SERUM OR PLASMA 16 U/L 5 - 34 08/25 Specimen Type: PLASMA No comment entered. Ordering Provider: MEMO MARQUEZ Report Released Date/Time : Mar 04, 2024 01:47 PM Reporting Lab: [place] [facility] [address] [place] [address] 8 Performin g Lab: [place] [facility] [address] [place] [address] 8 [facility] COMPREHENSI VE METABOLIC PANEL ALANINE AMINOTRANSFER ASE [ENZYMATIC ACTIVITY/VOLU ME] IN SERUM OR PLASMA 13 U/L 8 - 40 08/25 Specimen Type: PLASMA No comment entered. Ordering Provider: MEMO MARQUEZ Report Released Date/Time : Mar 04, 2024 01:47 PM Reporting Lab: [place] [facility] [address] [place] [address] 8 Performin g Lab: [place] [facility] [address] [place] [address] 8 [facility] COMPREHENSI VE METABOLIC PANEL GLOMERULAR FILTRATION RATE/1.73 SQ M.PREDICTED [VOLUME RATE/AREA] IN SERUM, PLASMA OR BLOOD BY CREATININE-BA SED FORMULA (CKD-EPI 2020) 56 08/25 Specimen Type: PLASMA No comment entered. Ordering Provider: MEMO MARQUEZ Report Released Date/Time : Mar 04, 2024 01:47 PM Reporting Lab: [place] [facility] [address] [place] [address] 8 [facility]formin g Lab: [place] [facility] [address] [place] [address] 8 [facility] HGA1C HEMOGLOBIN A1C/HEMOGLOBI N.TOTAL IN BLOOD 6.8 4.0 - 6.0 08/25 H Specimen Type: BLOOD No comment entered. Ordering Provider: MEMO MARQUEZ Report Released Date/Time : Mar 04, 2024 01:47 PM Reporting Lab: [place] [facility] [address] [place] [address] 8 Performin g Lab: [place] [facility] [address] [place] [address] 8 [facility] TSH (MA-PB) THYROTROPIN [UNITS/VOLUME ] IN SERUM OR PLASMA 5.150 u[IU]/ mL 0.47 - 5 08/25 H Specimen Type: SERUM No comment entered. Ordering Provider: MEMO MARQUEZ Report Released Date/Time : Mar 04, 2024 01:47 PM Reporting Lab: [place] [facility] [address] [place] [address] 8 Performin g Lab: [place] [facility] [address] [place] [address] 8 [facility] TSH (MA-PB) THYROXINE (T4) FREE [MASS/VOLUME] IN SERUM OR PLASMA 1.15 ng/dL 08/25 Specimen Type: SERUM No comment entered. Ordering Provider: MEMO MARQUEZ Report Released Date/Time : Mar 04, 2024 01:47 PM Reporting Lab: [place] [facility] [address] [place] [address] 8 Performin g Lab: [place] [facility] [address] [place] [address] 8 [facility] URINE ALBUMIN PROFILE-ih (PB) ALBUMIN [MASS/VOLUME] IN URINE 345.85 mg/L 0 - 30 08/25 H Specimen Type: URINE No comment entered. Ordering Provider: MEMO MARQUEZ Report Released Date/Time : Mar 04, 2024 01:47 PM Reporting Lab: [place] [facility] [address] [place] [address] 8 Performin g Lab: [place] [facility] [address] [place] [address] 8 [facility] URINE ALBUMIN PROFILE-ih (PB) ALBUMIN/CREAT ININE [MASS RATIO] IN URINE 327.42 ug/mg 08/25 Specimen Type: URINE No comment entered. Ordering Provider: MEMO MARQUEZ Report Released Date/Time : Mar 04, 2024 01:47 PM Reporting Lab: [place] [facility] [address] [place] [address] 8 Performin g Lab: [place] [facility] [address] [place] [address] 8 [facility] URINE ALBUMIN PROFILE-ih (PB) CREATININE [MASS/VOLUME] IN URINE 105.63 mg/dL 08/25 Specimen Type: URINE No comment entered. Ordering Provider: MEMO MARQUEZ Report Released Date/Time : Mar 04, 2024 01:47 PM Reporting Lab: [place] [facility] [address] [place] [address] 8 Performin g Lab: [place] [facility] [address] [place] [address] 8 [facility] VITAMIN D, 25-HYDROXY 25-HYDROXYVIT ELLIS D3 [MASS/VOLUME] IN SERUM OR PLASMA 29.4 ng/mL 30 - 96 08/25 L Specimen Type: SERUM No comment entered. Ordering Provider: MEMO MARQUEZ Report Released Date/Time : Mar 04, 2024 01:47 PM Reporting Lab: [place] [facility] [address] [place] [address] 8 Performin g Lab: [place] [facility] [address] [place] [address] 8 [facility] CHOLESTEROL PANEL (PB) CHOLESTEROL [MASS/VOLUME] IN SERUM OR PLASMA 139 mg/dL 0 - 200 02/25 Specimen Type: PLASMA No comment entered. Ordering Provider: MEMO MARQUEZ Report Released Date/Time : Sep 06, 2023 03:29 PM Reporting Lab: [place] [facility] [address] [place] [address] 8 Performin g Lab: [place] [facility] [address] [place] [address] 8 [facility] CHOLESTEROL PANEL (PB) TRIGLYCERIDE [MASS/VOLUME] IN SERUM OR PLASMA 129 mg/dL 0 - 150 02/25 Specimen Type: PLASMA No comment entered. Ordering Provider: MEMO MARQUEZ Report Released Date/Time : Sep 06, 2023 03:29 PM Reporting Lab: [place] [facility] [address] [place] [address] 8 Performin g Lab: [place] [facility] [address] [place] [address] 8 [facility] CHOLESTEROL PANEL (PB) CHOLESTEROL IN LDL [MASS/VOLUME] IN SERUM OR PLASMA BY CALCULATION 77.1 mg/dL 02/25 Specimen Type: PLASMA No comment entered. Ordering Provider: MEMO MARQUEZ Report Released Date/Time : Sep 06, 2023 03:29 PM Reporting Lab: [place] [facility] [address] [place] [address] 8 Performin g Lab: [place] [facility] [address] [place] [address] 8 [facility] CHOLESTEROL PANEL (PB) CHOLESTEROL IN HDL [MASS/VOLUME] IN SERUM OR PLASMA 36.1 mg/dL 40 02/25 L Specimen Type: PLASMA No comment entered. Ordering Provider: MEMO MARQUEZ Report Released Date/Time : Sep 06, 2023 03:29 PM Reporting Lab: [place] [facility] [address] [place] [address] 8 Performin g Lab: [place] [facility] [address] [place] [address] 8 [facility] CHOLESTEROL PANEL (PB) CHOLESTEROL IN HDL/CHOLESTER OL.TOTAL [MASS RATIO] IN SERUM OR PLASMA 26.0 25 02/25 Specimen Type: PLASMA No comment entered. Ordering Provider: MEMO MARQUEZ Report Released Date/Time : Sep 06, 2023 03:29 PM Reporting Lab: [place] [facility] [address] [place] [address] 8 Performin g Lab: [place] [facility] [address] [place] [address] 8 [facility] COMPREHENSI VE METABOLIC PANEL CREATININE [MASS/VOLUME] IN SERUM OR PLASMA 1.34 mg/dL 0.7 - 1.3 02/25 H Specimen Type: PLASMA No comment entered. Ordering Provider: MEMO MARQUEZ Report Released Date/Time : Sep 06, 2023 03:29 PM Reporting Lab: [place] [facility] [address] [place] [address] 8 Performin g Lab: [place] [facility] [address] [place] [address] 8 [place] [facility] COMPREHENSI VE METABOLIC PANEL UREA NITROGEN [MASS/VOLUME] IN SERUM OR PLASMA 26 mg/dL 9 - 25 02/25 H Specimen Type: PLASMA No comment entered. Ordering Provider: MEMO MARQUEZ Report Released Date/Time : Sep 06, 2023 03:29 PM Reporting Lab: [place] [facility] [address] [place] [address] 8 Performin g Lab: [place] [facility] [address] [place] [address] 8 [facility] COMPREHENSI VE METABOLIC PANEL GLUCOSE [MASS/VOLUME] IN SERUM OR PLASMA 214 mg/dL 72 - 99 02/25 H Specimen Type: PLASMA No comment entered. Ordering Provider: MEMO MARQUEZ Report Released Date/Time : Sep 06, 2023 03:29 PM Reporting Lab: [place] [facility] [address] [place] [address] 8 Performin g Lab: [place] [facility] [address] [place] [address] 8 [facility] COMPREHENSI VE METABOLIC PANEL SODIUM [MOLES/VOLUME ] IN SERUM OR PLASMA 138 meq/L 136 - 145 02/25 Specimen Type: PLASMA No comment entered. Ordering Provider: MEMO MARQUEZ Report Released Date/Time : Sep 06, 2023 03:29 PM Reporting Lab: [place] [facility] [address] [place] [address] 8 Performin g Lab: [place] [facility] [address] [place] [address] 8 [facility] COMPREHENSI VE METABOLIC PANEL POTASSIUM [MOLES/VOLUME ] IN SERUM OR PLASMA 4.7 meq/L 3.5 - 5 02/25 Specimen Type: PLASMA No comment entered. Ordering Provider: MEMO MARQUEZ Report Released Date/Time : Sep 06, 2023 03:29 PM Reporting Lab: [place] [facility] [address] [place] [address] 8 Performin g Lab: [place] [facility] [address] [place] [address] 8 [place] [facility] COMPREHENSI VE METABOLIC PANEL CHLORIDE [MOLES/VOLUME ] IN SERUM OR PLASMA 108 meq/L 98 - 107 02/25 H Specimen Type: PLASMA No comment entered. Ordering Provider: MEMO MARQUEZ Report Released Date/Time : Sep 06, 2023 03:29 PM Reporting Lab: [place] [facility] [address] [place] [address] 8 Performin g Lab: [place] [facility] [address] [place] [address] 8 [facility] COMPREHENSI VE METABOLIC PANEL CARBON DIOXIDE, TOTAL [MOLES/VOLUME ] IN SERUM OR PLASMA 22 meq/L 22 - 31 02/25 Specimen Type: PLASMA No comment entered. Ordering Provider: MEMO MARQUEZ Report Released Date/Time : Sep 06, 2023 03:29 PM Reporting Lab: [place] [facility] [address] [place] [address] 8 Performin g Lab: [place] [facility] [address] [place] [address] 8 [facility] COMPREHENSI VE METABOLIC PANEL CALCIUM [MASS/VOLUME] IN SERUM OR PLASMA 9.4 mg/dL 8.4 - 10.4 02/25 Specimen Type: PLASMA No comment entered. Ordering Provider: MEMO MARQUEZ Report Released Date/Time : Sep 06, 2023 03:29 PM Reporting Lab: [place] [facility] [address] [place] [address] 8 Performin g Lab: [place] [facility] [address] [place] [address] 8 [facility] COMPREHENSI VE METABOLIC PANEL PROTEIN [MASS/VOLUME] IN SERUM OR PLASMA 7.3 g/dL 6 - 8.6 02/25 Specimen Type: PLASMA No comment entered. Ordering Provider: MEMO MARQUEZ Report Released Date/Time : Sep 06, 2023 03:29 PM Reporting Lab: [place] [facility] [address] [place] [address] 8 Performin g Lab: [place] [facility] [address] [place] [address] 8 [facility] COMPREHENSI VE METABOLIC PANEL ALBUMIN [MASS/VOLUME] IN SERUM OR PLASMA 4.4 g/dL 3.4 - 5 02/25 Specimen Type: PLASMA No comment entered. Ordering Provider: MEMO MARQUEZ Report Released Date/Time : Sep 06, 2023 03:29 PM Reporting Lab: [place] [facility] [address] [place] [address] 8 Performin g Lab: [place] [facility] [address] [place] [address] 8 [facility] COMPREHENSI VE METABOLIC PANEL BILIRUBIN.TOT AL [MASS/VOLUME] IN SERUM OR PLASMA 0.2 mg/dL 0.2 - 1.2 02/25 Specimen Type: PLASMA No comment entered. Ordering Provider: MEMO MARQUEZ Report Released Date/Time : Sep 06, 2023 03:29 PM Reporting Lab: [place] [facility] [address] [place] [address] 8 Performin g Lab: [place] [facility] [address] [place] [address] 8 [facility] COMPREHENSI VE METABOLIC PANEL ALKALINE PHOSPHATASE [ENZYMATIC ACTIVITY/VOLU ME] IN SERUM OR PLASMA 63 U/L 40 - 150 02/25 Specimen Type: PLASMA No comment entered. Ordering Provider: MEMO MARQUEZ Report Released Date/Time : Sep 06, 2023 03:29 PM Reporting Lab: [place] [facility] [address] [place] [address] 8 Performin g Lab: [place] [facility] [address] [place] [address] 8 [facility] COMPREHENSI VE METABOLIC PANEL ASPARTATE AMINOTRANSFER ASE [ENZYMATIC ACTIVITY/VOLU ME] IN SERUM OR PLASMA 15 U/L 5 - 34 02/25 Specimen Type: PLASMA No comment entered. Ordering Provider: MEMO MARQUEZ Report Released Date/Time : Sep 06, 2023 03:29 PM Reporting Lab: [place] [facility] [address] [place] [address] 8 Performin g Lab: [place] [facility] [address] [place] [address] 8 [facility] COMPREHENSI VE METABOLIC PANEL ALANINE AMINOTRANSFER ASE [ENZYMATIC ACTIVITY/VOLU ME] IN SERUM OR PLASMA 17 U/L 8 - 40 02/25 Specimen Type: PLASMA No comment entered. Ordering Provider: MEMO MARQUEZ Report Released Date/Time : Sep 06, 2023 03:29 PM Reporting Lab: [place] [facility] [address] [place] [address] 8 Performin g Lab: [place] [facility] [address] [place] [address] 8 [facility] COMPREHENSI VE METABOLIC PANEL GLOMERULAR FILTRATION RATE/1.73 SQ M.PREDICTED [VOLUME RATE/AREA] IN SERUM, PLASMA OR BLOOD BY CREATININE-BA SED FORMULA (CKD-EPI 2020) 56 02/25 Specimen Type: PLASMA No comment entered. Ordering Provider: MEMO MARQUEZ Report Released Date/Time : Sep 06, 2023 03:29 PM Reporting Lab: [place] [facility] [address] [place] [address] 8 Performin g Lab: [place] [facility] [address] [place] [address] 8 [facility] HGA1C HEMOGLOBIN A1C/HEMOGLOBI N.TOTAL IN BLOOD 7.5 4.0 - 6.0 02/25 H Specimen Type: BLOOD No comment entered. Ordering Provider: MEMO MARQUEZ Report Released Date/Time : Sep 06, 2023 03:29 PM Reporting Lab: [place] [facility] [address] [place] [address] 8 Performin g [facility]: [place] [facility] [address] [place] [address] 8 [facility] Vital Signs Combined list of inpatient and outpatient Vital Signs from Department of Defense and Veterans Affairs, ranging from 12 months to all on record, depending upon the facility. Vital Sign Value Date Comments Source SYSTOLIC BLOOD PRESSURE 138 09/01/2024 13:13:01 [facility] DIASTOLIC BLOOD PRESSURE 70 09/01/2024 13:13:01 [place] [facility] PULSE OXIMETRY 96 09/01/2024 13:13:01 [facility] [place] [facility] WEIGHT 173.8 09/01/2024 13:13:01 [place] [facility] BMI 25 kg/m2 09/01/2024 13:13:01 [place] [facility] PAIN 1 09/01/2024 13:13:01 [place] [facility] TEMPERATURE 98 09/01/2024 13:13:01 [place] [facility] PULSE 86 09/01/2024 13:13:01 [place] [facility] RESPIRATION 22 09/01/2024 13:13:01 [place] [facility] SYSTOLIC BLOOD PRESSURE 136 03/04/2024 16:46:01 [place] [facility] DIASTOLIC BLOOD PRESSURE 74 03/04/2024 16:46:01 [place] [facility] PULSE OXIMETRY 98 03/04/2024 16:46:01 [facility] [place] [facility] WEIGHT 167.3 03/04/2024 16:46:01 [place] [facility] BMI 24 kg/m2 03/04/2024 16:46:01 [place] [facility] TEMPERATURE 98 03/04/2024 16:46:01 [place] [facility] PULSE 97 03/04/2024 16:46:01 [place] [facility] RESPIRATION 18 03/04/2024 16:46:01 [place] [facility] Encounters Combined list of: 1) Encounters from Department of [facility] Affairs facilities going backup to the last 18 months, not all VA inpatient encounters are included; 2) Encounters from the Department of [facility] facilities going backup to 280 months. 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 BARON AddisonY B 08/09 [facility] [place] [facility] OFFICE O/P NEW MOD 45 MIN [id number] Diagnos is: ICD-10- CM E11.9 Type 2 diabete s mellitu s without complic ations Annette MARQUEZ 09/05 [facility] En[facility] [id number] 09/10 [facility] Outpatient Encounter [id number] 09/25 [facility] Outpatient Encounter [id number] 09/25 [facility] [place] [facility] Outpatient Encounter [id number] CONSTANZA OSEGUERA 02/21 [place] [facility] Encounter [id number] Monica VILLALPANDO 02/24 [facility] Outpatient Encounter [id number] 02/26 [facility] Outpatient Encounter [id number] 03/04 [facility] CB OFFICE O/P EST MOD 30 MIN [id number] Diagnos is: ICD-10- CM E11.9 Type 2 diabete s mellitu s without complic ations Annette MARQUEZ 03/04 [facility] Outpatient Encounter [id number] 03/04 [facility] Outpatient Encounter [id number] 09/01 [facility] OFFICE O/P EST MOD 30 MIN [id number] Diagnos is: ICD-10- CM E11.9 Type 2 diabete s mellitu s without complic ations Annette MARQUEZ 09/01 [facility] Outpatient Encounter [id number] 09/15 [facility] Outpatient Encounter [id number] 10/15 [facility] Outpatient Encounter [id number] 10/16 [facility] Social History Combined list of available smoking, tobacco, and other social history from Department of Defense and Veterans Affairs facilities. Social History Type Response Date Comment Sourc e Tobacco smoking status NHIS VA-TOBACCO USER EVERY DAY 09/06/2023 [facility] History of tobacco use VA-TOBACCO USE WI 30 MIN OF WAKEUP 09/06/2023 [facility] History of tobacco use VA-TOBACCO USER E VERY DAY 10/04/2022 [facility] History of tobacco use VA-TOBACCO DOESNT USE WI 30 MIN WAKEUP 10/05/2021 [facility] History of tobacco use VA-TOBACCO DOESNT USE WI 30 MIN WAKEUP 10/11/2020 [facility] History of tobacco use VA-TOBACCO NEVER USED 10/08/2019 [facility] History of tobacco use VA-TOBACCO USER E VERY DAY 01/17/2018 [facility] History of tobacco use TOBACCO OFFERED P T MEDS (PROVIDER) 01/17/2018 [facility] History of tobacco use TOBACCO OFFERED P T MEDS (PROVIDER) 01/17/2017 [facility] History of tobacco use QUIT TOBACCO >7 Y EARS AGO 11/11/2015 [facility] History of tobacco use QUIT TOBACCO >12 MO and <7 YRS AGO 07/16/2014 [facility] Plan of Care List of future care activities from Department of Veterans Affairs facilities. Additional future care activities may be listed in the Assessment and Plan section. Date/Time Care Activity Care Activity Detail Facili ty 02/20/2025 AMBULATORY - MEDICINE AMBULATORY - [facility]
--- OUTSIDE RECORDS SUMMARY | 2025-01-08 13:17 | XMS_ITS | Encounter Summary ---
Author [facility] Address [address] [place] [address] Care Team Providers Care Sales Estimator Name Role Phone Unavailable Primary Care Provider Unavailabl e Reason for Visit * Reason Comments Chest Pain Encounter Details Date Type Department Care Team (Late st Contact Info) Description 01/08/2025 1:17 PM CDT - 01/08/2025 1:56 PM CDT Emergency [facility] Emergency Medicine [address] [phone] Malcolm Medeiros MD [address] [phone] ST elevation myocardial infarction involving left anterior descending (LAD) coronary artery (CMS/HCC) (Primary Dx) Discharge Disposition: Acute Care Hospital Social History Tobacco Use Types Packs/Day Years Used Date Smoking Tobacco: Former Cigarettes Tobacco Cessation:Counseling Given: Not Answered Alcohol Use Standard Drinks/Week Comments Not Currently 0 (1 standard drink = 0.6 oz pur e alcohol) Feeling Safe Answer Date Recorded Are you in a relationship wi th someone who hurts you emotionally and/or physically? No 01/08/2025 Sex and Gender Information Value Date Recorded Sex Assigned at Not on file Legal Sex Male 4:21 PM CDT Gender Identity Not on file Sexual Orientation Not on file documented as of this encounter Last Filed Vital Signs Vital Sign Reading Time Taken Comments Blood Pressure 90/57 01/08/2025 1:18 PM CDT Pulse - - Temperature 36.4 C (97.5 F) 01/08/2025 1:18 PM CDT Respiratory Rate 24 01/08/2025 1:18 PM CDT Oxygen Saturation 91% 01/08/2025 1:18 PM CDT Inhaled Oxygen Concentration - - Weight 78.7 kg (173 lb 9.6 oz) 01/08/2025 1:18 P M CDT Height 177.8 cm (5' 10 ) 01/08/2025 1:18 PM CDT Body Mass Index 24.91 01/08/2025 1:18 PM CDT documented in this encounter Medications at Time of Discharge amLODIPine (NORVASC) 10 mg tablet Take 10 mg by mouth daily. aspirin (ANDREZ CHEWABLE) 81 mg Tablet, Chewable Take 81 mg by mouth daily. atorvastatin (LIPITOR) 80 mg tablet Take 80 mg by mouth daily at bedtime. Cholecalciferol, Vitamin D3, 50 mcg (2,000 unit) Capsule Take by mouth. cyanocobalamin (VITAMIN B-12) 500 mcg tablet Take 1,000 mcg by mouth daily. glimepiride (AMARYL) 2 mg tablet Take 1 mg by mouth daily with breakfast. losartan (COZAAR) 50 mg tablet Take 50 mg by mouth daily. metFORMIN (GLUCOPHAGE) 1,000 mg tablet Take 1,000 mg by mouth 2 times daily with meals. metoprolol tartrate (LOPRESSOR) 100 mg tablet Take 100 mg by mouth 2 times daily. omeprazole (PriLOSEC) 20 mg Capsule, Delayed Release(E.C.) Take 20 mg by mouth daily. documented as of this encounter ED Notes * Enrique Barillas RN - 01/08/2025 2:08 PM CDT Report called to BILL Franklin at [facility] ER. Report given to [facility]. Patient moved to EMS cot by ER staff and EMS staff. Patient exited ED at 1356 with all belongings. IV NS and IV Heparin stopped in JUL, continued by EMS. Critical results called during patient exit, results forwarded to Dr Medeiros. Dr Medeirosforwarded [facility] * Enrique Barillas RN - 01/08/2025 2:02 PM CDT Kenny Currie 74 y.o. male, arrived to the ED via TRANSPORTATION: private vehicle for complaints of Chief Complaint Patient presents with Chest Pain This patient arrives POV with multiple family members for complaints of Left Chest Pain. Patient brought to room via wheelchair, skin appears pale but no signs of distress. Patient and spouse are historians, state patient was sitting in his recliner yesterday at 1300 when he had sudden onset Left Chest Pain without radiation he reports has slightly improved since onset. States when pain onset he began experiencing Shortness of Breath, Nausea followed by Vomiting, and Diaphoresis. RT in room forEKG, EKG shows ST depression in leads V2 and V3, Dr Medeiros notified and repeat EKG attempted with the same results. Orders placed for STEMI. Vitals taken, patient placed on monitor, clothing removed as needed per policy, privacy provided to patient. Respiratory: WDL - Regular rhythm, symmetrical chestexpansion, no dyspnea , Cardiac/Circulatory: Blood Pressure is low, reported Left Chest Pain, Skin:Skin Color is pale, patient is Alert and Oriented x4, pain scale: 4/10, findings; bleeding: withoutany bleeding noted. Behavior during evaluation: appropriate. Belongings secured, patient Weapons ass essment: denied possession of any weapons or firearms at this time. Patient comforted, all questions answered to the best of the staff's ability, education performed, and left patient in the room with the call light in reach, bed in lowest position, wheels locked, side rails up. * Lilibeth Molina RN - 01/08/2025 1:39 PM CDT [facility] notified of needing an ambulance for an emergent transfer * Evonne Wallace RCP - 01/08/2025 1:28 PM CDT EKG completed. Results given to Dr. Medeiros and scanned into [facility]. * Evonne Wallace RCP - 01/08/2025 1:24 PM CDT EKG completed. Results given to Dr. Medeiros and scanned into [employer]. * Malcolm Medeiros MD - 01/08/2025 1:16 PM CDTAssociated Order(s): EKG 12 lead HISTORY OF PRESENT ILLNESS History of Present Illness This is a 74-year-old male with a history of type 2 diabetes, HTN, HLD, past left TMA of foot, presenting with chest pain. He is accompanied by his . The patient began experiencing chest pain yesterday around 1:00 PM while sitting in a recliner. He initially thought it was gas or indigestion. The pain was localized and did not radiate to his back,neck, jaw, or shoulder. He rates the pain as a 9/10 at its worst and currently around 3/10. Accompanying symptoms included shortness of breath, nausea, vomiting, and sweating. He was unable to sleep last night due to the pain, which persisted into the morning but improving. He also reported a temperature but no chills. He did not experience any speech difficulties, weakness, numbness, or tingling. His noted that his skin appeared pale when they left the house. He has nitroglycerin at home but did not take it. He reports no thoughts of self-harm or harm to others and feels safe at home. He has no history of heart conditions, stents, or catheterization. The patient has type 2 diabetes and reported a blood sugar level of 210 this morning at 10:00 AM, despite not having eaten anything. He is currently on metformin for his diabetes. He experienced abdominal pain and diarrhea yesterday morning, with three episodes in the afternoon.These symptoms have since resolved. He is on medication for blood pressure. PAST SURGICAL HISTORY: He has a history of gallbladder surgery and foot surgery due to an infection from a blister. He occasionally uses a cane for mobility support. SOCIAL HISTORY He does not vape, smoke cigarettes or cigars, drink alcohol, or use any drugs including marijuana. He used to smoke a long time ago. PAST MEDICAL HISTORY REVIEWED MEDICAL: Patient has a past medical history of Diabetes mellitus ([facility]/HCC), GERD (gastroesophageal reflux disease), and Hypertension. SURGICAL: Patient has a past surgical history that includes cholecystectomy and foot amputation through metatarsal (Left). ALLERGIES Lisinopril PHYSICAL EXAM INITIAL VS BP: (!) 90/57 (01/08/25 1318), Heart Rate: 97 bpm (01/08/25 1318), Resp: 24 (01/08/25 1318), Pulse:(not recorded), Temp: 97.5 ??F (36.4 ??C) (01/08/25 1318), Temp src: Temporal (01/08/251317), SpO2: 91 % (01/08/251317), Height: 5' 10 (177.8 cm) (01/08/251317), Weight: 78.7 kg (173 lb 9.6 oz) (01/08/251317), BMI (Calculated): 24.89 (01/08/251317) No LMP for male patient. Blood pressure (!) 90/57, temperature 97.5 ??F (36.4 ??C), temperature source Temporal, resp. rate 24, height 5' 10 (1.778 m), weight 78.7 kg (173 lb 9.6 oz), SpO2 91%. Physical Exam Vitals and nursing note reviewed. Constitutional: General: He is not in acute distress. Appearance: Normal appearance. He is normal weight. He is ill-appearing. HENT: Head: Normocephalic. Mouth/Throat: Mouth: Mucous membranes are moist. Eyes: Extraocular Movements: Extraocular movements intact. Conjunctiva/sclera: Conjunctivae normal. Pupils: Pupils are equal, round, and reactive to light. Neck: Vascular: No JVD. Cardiovascular: Rate and Rhythm: Normal rate and regular rhythm. Pulses: Normal pulses. Radial pulses are 2+ on the right side and 2+ on the left side. Heart sounds: Normal heart sounds. Pulmonary: Effort: Pulmonary effort is normal. No respiratory distress. Breath sounds: Normal breath sounds. Chest: Chest wall: No tenderness. Abdominal: Palpations: Abdomen is soft. Musculoskeletal: General: Normal range of motion. Cervical back: Normal range of motion and neck supple. Right lower leg: No tenderness. No edema. Left lower leg: No tenderness. No edema. Skin: General: Skin is warm and dry. Capillary Refill: Capillary refill takes less than 2 seconds. Coloration: Skin is pale. Findings: No erythema. Neurological: General: No focal deficit present. Mental Status: He is alert and oriented to person, place, and time. Mental status is at baseline. Cranial Nerves: No cranial nerve deficit. Psychiatric: Mood and Affect: Mood normal. Behavior: Behavior normal. Physical Exam Constitutional: Patient appears pale. Cardiovascular: EKG shows acute AZ, STEMI. Neurological: Patient is alert and oriented to person, place, and time. Psychiatric: No suicidal or homicidal ideation. DIAGNOSTICS LAB: CBC WITH DIFFERENTIAL - Abnormal Result Value WBC 14.3 (*) RBC 3.77 (*) HEMOGLOBIN 11.3 (*) HEMATOCRIT 32.7 (*) MCV 86.7 MCH 30.0 MCHC 34.6 RDW 13.2 RDW-STDEV 41.3 PLATELETS 210 MPV 10.0 NEUTROPHILS 77 (*) LYMPHOCYTES 13 (*) MONOCYTES 9 EOSINOPHILS 0 (*) BASOPHILS 1 IMMATURE GRANULOCYTES 0 NEUTROPHIL ABSOLUTE 11.01 (*) LYMPHOCYTE ABSOLUTE 1.85 MONOCYTE ABSOLUTE 1.28 (*) EOSINOPHIL ABSOLUTE 0.03 (*) BASOPHILS ABSOLUTE 0.09 (*) IMMATURE GRANULOCYTES ABSOLUTE 0.06 PTT - Abnormal PTT 24.1 (*) SEDIMENTATION RATE - Normal ESR (SEDIMENTATION RATE) 15 PROTIME-INR - Normal PROTIME 12.4 INR 0.9 D-DIMER COMPREHENSIVE METABOLIC PANEL BRAIN NATRIURETIC PEPTIDE, BNP OR PROBNP TSH LACTIC ACID C-REACTIVE PROTEIN MAGNESIUM LEVEL URINALYSIS WITH REFLEX MICROSCOPIC TROPONIN BASELINE, 5TH GEN TROPONIN 2 HR, 5TH GEN CBC WITHOUT DIFFERENTIAL RADIOLOGY: No orders to display EKG: PROCEDURES EKG 12 lead Date/Time: 01/08/2025 1:47 PM Performed by: Malcolm Medeiros MD Authorized by: Malcolm Medeiros MD ECG interpreted by ED Physician in the absence of a topper press operator automatic: yes Rate: ECG rate: 97 ECG rate assessment: age appropriate Rhythm: Rhythm Origin: sinus Ectopy: Ectopy occurance comment: Accelerated junctional rhythm Intervals: normal QRSTT: QRSTT changes: Yes Comments: ST segment depression in leads V2, V3, V4. No T wave inversions noted. MEDICAL DECISION MAKING AND PLAN OF CARE Assessment & Plan Initial Assessment: Patient presented with chest pain, shortness of breath, nausea, vomiting, and sweating. Pain started while sitting in a recliner and was rated 8-9/10 at its worst. History of type II diabetes, hypertension, and GERD. Differential Diagnosis: - Acute Myocardial Infarction (STEMI) EKG showing acute AZ, STEMI. Started on aspirin 325 mg chewable and heparin drip. Blood work ordered. Case discussed with topper press operator automatic Dr. Gonzalez. Accepted for STEMI treatment. Clopidogrel 600 mg administered. Transfer to hospital. - Gastroesophageal Reflux Disease (GERD) Currently taking omeprazole. Continue medication regimen. Avoid trigger foods. ED Course: 1326: EKG showing acute AZ, STEMI. Started on aspirin 325 mg chewable and heparin drip. Blood work ordered. Case discussed with topper press operator automatic Dr. Gonzalez from [place]. Patient accepted for STEMI treatment. Clopidogrel 600 mg administered. Final Assessment: EKG indicated acute myocardial infarction (STEMI). Started on aspirin 325 mg chewable, heparin dripwith a bolus administered, and clopidogrel 600 mg. Blood work ordered. Transfer to hospital for STEMI treatment. Clinical Impression: - Acute Myocardial Infarction (STEMI) - Type II Diabetes Mellitus - Hypertension - Gastroesophageal Reflux Disease (GERD) Disposition: Patient will be emergently transferred to [facility] in [place] for Poultry Breeder transfer for a STEMI. Medical Decision Making Amount and/or Complexity of Data Reviewed Labs: ordered. Radiology: ordered. ECG/medicine tests: ordered. Risk OTC drugs. Prescription drug management. Clinical Scoring & Consults Medications Administered During the ED Stay from 01/08/2025 1316 to 01/08/2025 1349 Date/Time Order Dose Route Action 01/08/2025 1339 CDT aspirin (ANDREZ CHEWABLE) chewable tablet 324 mg 324 mg Oral Given 01/08/2025 1339 CDT clopidogreL (PLAVIX) tablet 600 mg 600 mg Oral Given . New Prescriptions for this Encounter LAST VS BP: (!) 90/57 (01/08/251317), Heart Rate: 97 bpm (01/08/251317), Resp: 24 (01/08/251317), Pulse:(not recorded), Temp: 97.5 ??F (36.4 ??C) (01/08/251317), Temp src: Temporal (01/08/251317), SpO2: 91 % (01/08/251317) CLINICAL IMPRESSION Diagnosis Diagnosis Comment Added By Time Added ST elevation myocardial infarction involving left anterior descending (LAD) coronary artery ([facility]) [I21.02] Malcolm Medeiros MD 01/08/2025 1:39 PM DISPOSITION, EDUCATION AND MEDICATION RECONCILIATION Medications reconciled. See after visit summary for patient education on discharged patients. ED Disposition ED Disposition Transfer Condition Stable User Malcolm Medeiros MD Date/Time Flores Jan 08, 2025 1:39 PM Comment -- documented in this encounter Plan of Treatment Scheduled Orders Name Type Priority Associated Diagnoses Orde r Schedule URINALYSIS WITH REFLEX MICROSCOPIC Lab Stat ONE TIME COLLECT NOW for 1 Occurrences starting 01/08/2025 until 01/08/2025 TROPONIN 6 HR, 5TH GEN Lab Timed Study O NE TIME for 1 Occurrences starting 01/08/2025 until 01/08/2025 TROPONIN 2 HR, 5TH GEN Lab Timed Study O NE TIME for 1 Occurrences starting 01/08/2025 until 01/08/2025 CBC WITHOUT DIFFERENTIAL Lab Routine EVERY SEVENTY-TWO HOURS until discontinued starting 01/08/2025 documented as of this encounter Procedures Procedure Name Priority Date/Time Associated Diagnosis Comments EKG 12-LEAD Stat 01/08/2025 1:47 PM CDT TROPONIN BASELINE, 5TH GEN Stat 01/08/2025 1:26 PM CDT LACTIC ACID Stat 01/08/2025 1:26 PM CDT CBC WITH DIFFERENTIAL Stat 01/08/2025 1:26 PM CDT PTT Stat 01/08/2025 1:26 PM CDT SEDIMENTATION RATE Stat 01/08/2025 1: 26 PM CDT PROTIME-INR Stat 01/08/2025 1:26 PM CDT D-DIMER Stat 01/08/2025 1:26 PM CDT C-REACTIVE PROTEIN Stat 01/08/2025 1: 26 PM CDT TSH Stat 01/08/2025 1:26 PM CDT BRAIN NATRIURETIC PEPTIDE, BNP OR PROBNP Stat 01/08/2025 1:26 PM CDT MAGNESIUM LEVEL Stat 01/08/2025 1:26 PM CDT COMPREHENSIVE METABOLIC PANEL Stat 01/08/2025 1:26 PM CDT documented in this encounter Results * EKG 12 lead (01/08/2025 1:47 PM CDT) Narrative Evonne WallaceSTEVENP - 01/08/2025 1:47 PM CDT Malcolm Medeiros MD 01/08/2025 1:49 PM EKG 12 lead Date/Time: 01/08/2025 1:47 PM Performed by: Malcolm Medeiros MD Authorized by: Malcolm Medeiros MD ECG interpreted by ED Physician in the absence of a topper press operator automatic: yes Rate: ECG rate: 97 ECG rate assessment: age appropriate Rhythm: Rhythm Origin: sinus Ectopy: Ectopy occurance comment: Accelerated junctional rhythm Intervals: normal QRSTT: QRSTT changes: Yes Comments: ST segment depression in leads V2, V3, V4. No T wave inversions noted. Procedure Note Malcolm Medeiros MD - 01/08/2025 1:16 PM CDT HISTORY OF PRESENT ILLNESS History of Present Illness This is a 74-year-old male with a history of type 2 diabetes, HTN, HLD,past left TMA of foot, presenting with chest pain. He is accompanied byhis . The patient began experiencing chest pain yesterday around 1:00 PM whilesitting in a recliner. He initially thought it was gas or indigestion. Thepain was localized and did not radiate to his back, neck, jaw, orshoulder. He rates the pain as a 9/10 at its worst and currently around3/10. Accompanying symptoms included shortness of breath, nausea,vomiting, and sweating. He was unable to sleep last night due to the pain, which persisted intothe morning but improving. He also reported a temperature but no chills.He did not experience any speech difficulties, weakness, numbness, ortingling. His noted that his skin appeared pale when they left thehouse. He has nitroglycerin at home but did not take it. He reports nothoughts of self-harm or harm to others and feels safe at home. He has nohistory of heart conditions, stents, or catheterization. The patient has type 2 diabetes and reported a blood sugar level of 210this morning at 10:00 AM, despite not having eaten anything. He iscurrently on metformin for his diabetes. He experienced abdominal pain and diarrhea yesterday morning, with threeepisodes in the afternoon. These symptoms have since resolved. He is on medication for blood pressure. PAST SURGICAL HISTORY: He has a history of gallbladder surgery and foot surgery due to aninfection from a blister. He occasionally uses a cane for mobilitysupport. SOCIAL HISTORY He does not vape, smoke cigarettes or cigars, drink alcohol, or use anydrugs including marijuana. He used to smoke a long time ago. PAST MEDICAL HISTORY REVIEWED MEDICAL: Patient has a past medical history of Diabetes mellitus ([facility]), GERD(gastroesophageal reflux disease), and Hypertension. SURGICAL: Patient has a past surgical history that includes cholecystectomy andfoot amputation through metatarsal (Left). ALLERGIES Lisinopril PHYSICAL EXAM INITIAL VS BP: (!) 90/57 (01/08/251317), Heart Rate: 97 bpm (01/08/251317), Resp:24 (01/08/251317), Pulse: (not recorded), Temp: 97.5 F (36.4 C)(01/08/251317), Temp src: Temporal (01/08/251317), SpO2: 91 % (), Height: 5' 10 (177.8 cm) (01/08/251317), Weight: 78.7 kg (173 lb9.6 oz) (01/08/251317), BMI (Calculated): 24.89 (01/08/251317) No LMPfor male patient. Blood pressure (!) 90/57, temperature 97.5 F (36.4 C), temperaturesource Temporal, resp. rate 24, height 5' 10 (1.778 m), weight 78.7 kg(173 lb 9.6 oz), SpO2 91%. Physical Exam Vitals and nursing note reviewed. Constitutional: General: He is not in acute distress. Appearance: Normal appearance. He is normal weight. He isill-appearing. HENT: Head: Normocephalic. Mouth/Throat: Mouth: Mucous membranes are moist. Eyes: Extraocular Movements: Extraocular movements intact. Conjunctiva/sclera: Conjunctivae normal. Pupils: Pupils are equal, round, and reactive to light. Neck: Vascular: No JVD. Cardiovascular: Rate and Rhythm: Normal rate and regular rhythm. Pulses: Normal pulses. Radial pulses are 2+ on the right side and 2+ on the left side. Heart sounds: Normal heart sounds. Pulmonary: Effort: Pulmonary effort is normal. No respiratory distress. Breath sounds: Normal breath sounds. Chest: Chest wall: No tenderness. Abdominal: Palpations: Abdomen is soft. Musculoskeletal: General: Normal range of motion. Cervical back: Normal range of motion and neck supple. Right lower leg: No tenderness. No edema. Left lower leg: No tenderness. No edema. Skin: General: Skin is warm and dry. Capillary Refill: Capillary refill takes less than 2 seconds. Coloration: Skin is pale. Findings: No erythema. Neurological: General: No focal deficit present. Mental Status: He is alert and oriented to person, place, and time.Mental status is at baseline. Cranial Nerves: No cranial nerve deficit. Psychiatric: Mood and Affect: Mood normal. Behavior: Behavior normal. Physical Exam Constitutional: Patient appears pale. Cardiovascular: EKG shows acute AZ, STEMI. Neurological: Patient is alert and oriented to person, place, and time. Psychiatric: No suicidal or homicidal ideation. DIAGNOSTICS LAB: CBC WITH DIFFERENTIAL - Abnormal Result Value WBC 14.3 (*) RBC 3.77 (*) HEMOGLOBIN 11.3 (*) HEMATOCRIT 32.7 (*) MCV 86.7 MCH 30.0 MCHC 34.6 RDW 13.2 RDW-STDEV 41.3 PLATELETS 210 MPV 10.0 NEUTROPHILS 77 (*) LYMPHOCYTES 13 (*) MONOCYTES 9 EOSINOPHILS 0 (*) BASOPHILS 1 IMMATURE GRANULOCYTES 0 NEUTROPHIL ABSOLUTE 11.01 (*) LYMPHOCYTE ABSOLUTE 1.85 MONOCYTE ABSOLUTE 1.28 (*) EOSINOPHIL ABSOLUTE 0.03 (*) BASOPHILS ABSOLUTE 0.09 (*) IMMATURE GRANULOCYTES ABSOLUTE 0.06 PTT - Abnormal PTT 24.1 (*) SEDIMENTATION RATE - Normal ESR (SEDIMENTATION RATE) 15 PROTIME-INR - Normal PROTIME 12.4 INR 0.9 D-DIMER COMPREHENSIVE METABOLIC PANEL BRAIN NATRIURETIC PEPTIDE, BNP OR PROBNP TSH LACTIC ACID C-REACTIVE PROTEIN MAGNESIUM LEVEL URINALYSIS WITH REFLEX MICROSCOPIC TROPONIN BASELINE, 5TH GEN TROPONIN 2 HR, 5TH GEN CBC WITHOUT DIFFERENTIAL RADIOLOGY: No orders to display EKG: PROCEDURES EKG 12 lead Date/Time: 01/08/2025 1:47 PM Performed by: Malcolm Medeiros MD Authorized by: Malcolm Medeiros MD ECG interpreted by ED Physician in the absence of a topper press operator automatic: yes Rate: ECG rate: 97 ECG rate assessment: age appropriate Rhythm: Rhythm Origin: sinus Ectopy: Ectopy occurance comment: Accelerated junctional rhythm Intervals: normal QRSTT: QRSTT changes: Yes Comments: ST segment depression in leads V2, V3, V4. No T wave inversions noted. MEDICAL DECISION MAKING AND PLAN OF CARE Assessment & Plan Initial Assessment: Patient presented with chest pain, shortness of breath, nausea, vomiting,and sweating. Pain started while sitting in a recliner and was rated8-9/10 at its worst. History of type II diabetes, hypertension, andGERD. Differential Diagnosis: - Acute Myocardial Infarction (STEMI) EKG showing acute AZ, STEMI. Started on aspirin 325 mg chewable andheparin drip. Blood work ordered. Case discussed with topper press operator automatic . Accepted for STEMI treatment. Clopidogrel 600 mg administered.Transfer to hospital. - Gastroesophageal Reflux Disease (GERD) Currently taking omeprazole. Continue medication regimen. Avoid triggerfoods. ED Course: 1326: EKG showing acute AZ, STEMI. Started on aspirin 325 mg chewable andheparin drip. Blood work ordered. Case discussed with topper press operator automatic Dr. Gonzalez from [place]. Patientaccepted for STEMI treatment. Clopidogrel 600 mg administered. Final Assessment: EKG indicated acute myocardial infarction (STEMI). Started on aspirin 325mg chewable, heparin drip with a bolus administered, and clopidogrel 600mg. Blood work ordered. Transfer to hospital for STEMI treatment. Clinical Impression: - Acute Myocardial Infarction (STEMI) - Type II Diabetes Mellitus - Hypertension - Gastroesophageal Reflux Disease (GERD) Disposition: Patient will be emergently transferred to [facility] in [place] for Cath Labtransfer for a STEMI. Medical Decision Making Amount and/or Complexity of Data Reviewed Labs: ordered. Radiology: ordered. ECG/medicine tests: ordered. Risk OTC drugs. Prescription drug management. Clinical Scoring & Consults Medications Administered During the ED Stay from 01/08/2025 1316 to01/08/2025 1349 Date/Time Order Dose Route Action 01/08/2025 1339 CDT aspirin (ANDREZ CHEWABLE) chewable tablet 324 mg 324mg Oral Given 01/08/2025 1339 CDT clopidogreL (PLAVIX) tablet 600 mg 600 mg Oral Given . New Prescriptions for this Encounter LAST VS BP: (!) 90/57 (01/08/251317), Heart Rate: 97 bpm (01/08/251317), Resp:24 (01/08/251317), Pulse: (not recorded), Temp: 97.5 F (36.4 C)(01/08/251317), Temp src: Temporal (01/08/251317), SpO2: 91 % (318) CLINICAL IMPRESSION Diagnosis Diagnosis Comment Added By Time Added ST elevation myocardial infarction involving left anterior descending(LAD) coronary artery ([facility]) [I21.02] Malcolm Medeiros MD :39 PM DISPOSITION, EDUCATION AND MEDICATION RECONCILIATION Medications reconciled. See after visit summary for patient education ondischarged patients. ED Disposition ED Disposition Transfer Condition Stable User Malcolm Medeiros MD Date/Time SunJan 08, 2025 1:39 PM Comment -- us Malcolm Medeiros MD ECG ORDERABLES Final Result * (ABNORMAL) PTT (01/08/2025 1:26 PM CDT) PTT 24.1(L) 25.1 - 35.4 seconds 01/08/2025 1:46 PM CDT [facility] [facility] Blood Collection / Unknown 01/08/2025 1:26 PM CDT 01/08/2025 1:34 PM CDT us Malcolm Medeiros MD HEMATOLOGY ORDERABLES Final Res ult Performing Organization Address City/[facility]/ZIP Co de Phone Number [facility] CLIA # [id number] [address] [place] [address] [id number] * (ABNORMAL) TROPONIN BASELINE, 5TH GEN (01/08/2025 1:26 PM CDT) TROPONIN T, BASELINE 5TH GEN 4,423(HH) <=15 ng/L 01/08/2025 1:52 PM CDT [facility] Blood Collection / Unknown 01/08/2025 1:26 PM CDT 01/08/2025 1:34 PM CDT Narrative [facility] - 01/08/2025 1:52 PM CDT Troponin elevated. us Malcolm Medeiros MD CHEMISTRY ORDERABLES Final Resu lt Performing Organization Address [facility]/ZIP Co de Phone Number [facility] CLIA # [id number] [address] [place] [address] [phone] * MAGNESIUM LEVEL (01/08/2025 1:26 PM CDT) Pathologist [facility] MAGNESIUM 1.7 1.6 - 2.4 mg/dL 01/08/2025 1:54 PM CDT [facility] Blood Collection / Unknown 01/08/2025 1:26 PM CDT 01/08/2025 1:34 PM CDT Malcolm Medeiros MD CHEMISTRY ORDERABLES Final Resu lt Performing Organization Address City/[facility]/ZIP Co de Phone Number [facility] CLIA # [id number] [address] [place] [address] [phone] * (ABNORMAL) C-REACTIVE PROTEIN (01/08/2025 1:26 PM CDT) CRP 6.2(H) <5.0 mg/L 01/08/2025 1:54 PM CDT [facility] Blood Collection / Unknown 01/08/2025 1:26 PM CDT 01/08/2025 1:34 PM CDT us Malcolm Medeiros MD CHEMISTRY ORDERABLES Final Resu lt [facility] CLIA # [id number] [address] [place] [address] [phone] * (ABNORMAL) LACTIC ACID (01/08/2025 1:26 PM CDT) LACTIC ACID 5.2(HH) <=2.0 mmol/L 01/08/2025 1:52 PM CDT [facility] Blood BLOOD SPECIMEN / Unknown Collection / Unknown 01/08/2025 1:26 PM CDT 01/08/2025 1:34 PM CDT us Malcolm Medeiros MD CHEMISTRY ORDERABLES Final Resu lt Performing Organization Address City/[facility]/ZIP Co de Phone Number [facility] CLIA # [id number] [address] [place] [address] [phone] * (ABNORMAL) TSH (01/08/2025 1:26 PM CDT) TSH 9.85(H) 0.27 - 4.20 uIU/mL 01/08/2025 1:58 PM CDT [facility] Blood Collection / Unknown 01/08/2025 1:26 PM CDT 01/08/2025 1:34 PM CDT Result Fadumo Medeiros MD CHEMISTRY ORDERABLES Final Resu lt [facility] CLIA # [id number] [address] [place] [address] [phone] * (ABNORMAL) BRAIN NATRIURETIC PEPTIDE, BNP OR PROBNP (01/08/2025 1:26 PM CDT) PROBNP, N TERMINAL 8,328(H) 0 - 450 pg/mL 01/08/2025 1:52 PM CDT [facility] Comment: INTERPRETIVE COMMENT based on diagnosis: Diagnostic NT pro-BNP cutoffs for Heart Failure in the absence of renal failure is suggested for the following ranges <75 years: <125 pg/mL >=75 years: <450 pg/mL Exclusionary rule out cut-point for Acute Decompensated Heart Failure(ADHF) All ages: <300 pg/mL Diagnostic NT pro-BNP cutoffs for Acute Decompensated Heart Failure(ADHF) in the absence of renal failure is suggested for the following ages <50 years: > 450 pg/mL 50-75 years: > 900 pg/mL >75 years: >1800 pg/mL Blood Collection / Unknown 01/08/2025 1:26 PM CDT 01/08/2025 1:34 PM CDT Malcolm Medeiros MD CHEMISTRY ORDERABLES Final Resu lt [facility] CLIA # [id number] [address] [place] [address] [phone] * (ABNORMAL) COMPREHENSIVE METABOLIC PANEL (01/08/2025 1:26 PM CDT) Pathologist [facility] SODIUM 134(L) 136 - 145 mmol/L 01/08/2025 1:54 PM CDT [facility] POTASSIUM 5.2(H) 3.5 - 5.1 mmol/L 01/08/2025 1:54 PM CDT [facility] CHLORIDE 97(L) 98 - 107 mmol/L 01/08/2025 1:54 PM CDT [facility] CO2 19(L) 22 - 29 mmol/L 01/08/2025 1:54 PM CDT [facility] CALCIUM 10.4(H) 8.8 - 10.2 mg/dL 01/08/2025 1:54 PM CDT [facility] BUN 34(H) 8 - 23 mg/dL 01/08/2025 1:54 PM CDT [facility] CREATININE 2.48(H) 0.67 - 1.17 mg/dL 01/08/2025 1:54 PM T [facility] Comment:The GFR result is no t clinically significant on patients <18 or >70 years of age. GLUCOSE 246(H) 74 - 99 mg/dL 01/08/2025 1:54 PM T [facility] TOTAL PROTEIN 7.2 6.6 - 8.7 g/dL 01/08/2025 1:54 PM T [facility] ALBUMIN 4.0 3.5 - 5.2 g/dL 01/08/2025 1:54 PM T [facility] BILIRUBIN TOTAL 0.4 0.0 - 1.2 mg/dL 01/08/2025 1:54 PM [facility] ALKALINE PHOSPHATASE 66 40 - 129 U/L 01/08/2025 1:54 PM [facility] AST 361(H) 0 - 50 U/L 01/08/2025 1:54 PM T [facility] ALT 36 0 - 50 U/L 01/08/2025 1:54 PM [facility] GFR 26 mL/min/1.7 3 sq meter 01/08/2025 1:54 PM [facility] Comment:eGFR calculated with 2020 CKD-EPI equation. Vegetarian diet, extremely high or low muscle mass, and may affect results. Cystatin C with Glomerular Filtration Rate is a suitable alternative for these patients. ANION GAP 18 5 - 20 mmol/L 01/08/2025 1:54 PM [facility] Blood Collection / Unknown 01/08/2025 1:26 PM CDT 01/08/2025 1:34 PM CDT us Malcolm Medeiros MD CHEMISTRY ORDERABLES Final Resu lt [facility] CLIA # [id number] [address] [place] [address] [phone] * (ABNORMAL) D-DIMER (01/08/2025 1:26 PM CDT) D-DIMER QUANT 0.82(H) <0.50 ug/mL FEU 01/08/2025 1:50 PM CDT [facility] Blood Collection / Unknown 01/08/2025 1:26 PM CDT 01/08/2025 1:34 PM CDT Narrative [facility] - 01/08/2025 1:50 PM CDT D-Dimer assay cutoff value for exclusion of DVT and/or PE is <0.50 ug/mL FEU. As D-Dimer levels increase naturally with age, age stratification for patients over 50 is potentially more appropriate in determining whether a patient should undergo further evaluation for DVT and/or PE than a general cutoff of 0.50 ug/mL FEU. Clinical consideration is recommended. Age Stratified Cutoff Values: 50-60 years: 0.50-0.60 ug/mL FEU 61-70 years: 0.61-0.70 ug/mL FEU 71-80 years: 0.71-0.80 ug/mL FEU us Malcolm Medeiros MD HEMATOLOGY ORDERABLES Final Res ult [facility] CLIA # [id number] [address] [place] [address] * PROTIME-INR (01/08/2025 1:26 PM CDT) PROTIME 12.4 12.1 - 14.3 Seconds 01/08/2025 1:46 PM CDT [facility] INR 0.9 0.9 - 1.1 01/08/2025 1:46 PM CDT [facility] Blood Collection / Unknown 01/08/2025 1:26 PM CDT 01/08/2025 1:34 PM CDT us Malcolm Medeiros MD HEMATOLOGY ORDERABLES Final Res ult [facility] CLIA # [id number] [address] [place] [address] * SEDIMENTATION RATE (01/08/2025 1:26 PM CDT) Pathologist [facility] ESR (SEDIMENTATION RATE) 15 0 - 20 mm/Hr 01/08/2025 1:47 PM CDT [facility] Blood Collection / Unknown 01/08/2025 1:26 PM CDT 01/08/2025 1:34 PM CDT [facility] - 01/08/2025 1:47 PM CDT Tube Lot: #[id number] Exp Date: 05/20/2026 QC1 LOT [id number] EXP.05/25/2025 QC2 LOT [id number] EXP.05/25/2025 us Malcolm Medeiros MD HEMATOLOGY ORDERABLES Final Res ult [facility] CLIA # [id number] [address] [place] [address] [phone] * (ABNORMAL) CBC WITH DIFFERENTIAL (01/08/2025 1:26 PM CDT) Pathologist [facility] WBC 14.3(H) 4.2 - 9.1 K/uL 01/08/2025 1:38 PM [facility] RBC 3.77(L) 4.63 - 6.08 M/uL 01/08/2025 1:38 PM [facility] HEMOGLOBIN 11.3(L) 13.7 - 17.5 g/dL 01/08/2025 1:38 PM [facility] HEMATOCRIT 32.7(L) 40.1 - 51.0 % 01/08/2025 1:38 PM [facility] MCV 86.7 79.0 - 92.2 fL 01/08/2025 1:38 PM [facility] MCH 30.0 25.7 - 32.2 pg 01/08/2025 1:38 PM [facility] MCHC 34.6 32.3 - 36.5 g/dL 01/08/2025 1:38 PM [facility] RDW 13.2 11.0 - 14.5 % 01/08/2025 1:38 PM [facility] RDW-STDEV 41.3 36.9 - 56.9 fL 01/08/2025 1:38 PM [facility] PLATELETS 210 130 - 400 K/uL 01/08/2025 1:38 PM [facility] MPV 10.0 10.0 - 14.8 fL 01/08/2025 1:38 PM [facility] NEUTROPHILS 77(H) 34 - 68 % 01/08/2025 1:38 PM [facility] LYMPHOCYTES 13(L) 22 - 53 % 01/08/2025 1:38 PM [facility] MONOCYTES 9 5 - 12 % 01/08/2025 1:38 PM [facility] EOSINOPHILS 0(L) 1 - 7 % 01/08/2025 1:38 PM [facility] BASOPHILS 1 0 - 1 % 01/08/2025 1:38 PM [facility] IMMATURE GRANULOCYTES 0 % 01/08/2025 1:38 PM [facility] NEUTROPHIL ABSOLUTE 11.01(H) 1.78 - 5.38 K/uL 01/08/2025 1:38 PM [facility] LYMPHOCYTE ABSOLUTE 1.85 1.20 - 3.40 K/uL 01/08/2025 1:38 PM [facility] MONOCYTE ABSOLUTE 1.28(H) 0.30 - 0.82 K/uL 01/08/2025 1:38 PM [facility] EOSINOPHIL ABSOLUTE 0.03(L) 0.04 - 0.54 K/uL 01/08/2025 1:38 PM [facility] BASOPHILS ABSOLUTE 0.09(H) 0.01 - 0.08 K/uL 01/08/2025 1:38 PM [facility] IMMATURE GRANULOCYTES ABSOLUTE 0.06 K/uL 01/08/2025 1:38 PM [facility] Blood Collection / Unknown 01/08/2025 1:26 PM CDT 01/08/2025 1:34 PM CDT us Malcolm Medeiros MD HEMATOLOGY ORDERABLES Final Res ult [facility] # [id number] [address] [place] [address] [phone] documented in this encounter Visit Diagnoses Diagnosis ST elevation myocardial infarction involving left anterior descending (LAD) coronary artery (CMS/HCC)- Primary ST elevation myocardial infarction involving left anterior descending (LAD) coronary artery (CMS/HCC) documented in this encounter Administered Medications Active Administered Medications - up to 3 most recent administrations Medication Order MAR Action Action Date Dose Rate Site heparin in 0.45% NaCl 25,000 unit/250 mL infusion 12 Units/kg/hr 78.7 kg (9.444 mL/hr, rounded to 9.4 mL/hr), IV, TITRATE, Starting on Flores 01/08/25 at 1330, Until Discontinued, Indication: ACS/STEMI, Dosing by: PER PROTOCOL: Delegate to facility protocol per indication, Re-bolus within Protocol? No, titrate infusion ONLY New Bag 01/08/2025 1:55 PM CDT 12 Units/kg/hr 9.4 mL/hr sodium chloride flush injection 10 mL 10 mL, IV, EVERY 12 HOURS (BlD), First dose on [place] 01/08/25 at 1330, Until Discontinued, Routine Given 01/08/2025 1:56 PM CDT 10 mL sodium chloride flush injection 10 mL 10 mL, IV, SEE ADMIN INSTRUCTIONS, Starting on [place] 01/08/25 at 1329, Until Discontinued, Routine Inactive Administered Medications - up to 3 most recent administrations Medication Order MAR Action Action Date Dose Rate Site aspirin (ANDREZ CHEWABLE) chewable tablet 324 mg 324 mg, Oral, ONE TIME ONLY, 1 dose, On [place] 01/08/25 at 1330, Routine Given 01/08/2025 1:39 PM CDT 324 mg clopidogreL (PLAVIX) tablet 600 mg 600 mg, Oral, ONE TIME ONLY, 1 dose, On [place] 01/08/25 at 1345, Stat Given 01/08/2025 1:39 PM CDT 600 mg heparin injection 4,000 Units 4,000 Units, IV, ONE TIME ONLY, 1 dose, On [place] 01/08/25 at 1330, StatIndications:ACS/STEMI Given 01/08/2025 1:54 PM CDT 4,000 Units sodium chloride 0.9 % bolus solution 500 mL 500 mL, IV, ONE TIME ONLY, 1 dose, On [place] 01/08/25 at 1330, at 999 mL/hr, Administer over 30 Minutes, Routine New Bag 01/08/2025 1:49 PM CDT 500 mL 999 mL/hr documented in this encounter Active and Recently Administered Medications Times are shown in CDT. Scheduled Medication Order 01/06/2025 01/07/2025 01/08/2025 aspirin (ANDREZ CHEWABLE) chewable tablet 324 mg (COMPLETED) 324 mg, Oral, ONE TIME ONLY, 1 dose, On [place] 01/08/25 at 1330, Routine 1339 (Given - Provid er: Enrique Barillas RN) clopidogreL (PLAVIX) tablet 600 mg (COMPLETED) 600 mg, Oral, ONE TIME ONLY, 1 dose, On [place] 01/08/25 at 1345, Stat 1339 (Given - Provid er: Enrique Barillas RN) heparin injection 4,000 Units (COMPLETED) 4,000 Units, IV, ONE TIME ONLY, 1 dose, On [place] 01/08/25 at 1330, Stat 1354 (Given - Provid er: Azalia Jogre RN) sodium chloride 0.9 % bolus solution 500 mL (COMPLETED) 500 mL, IV, ONE TIME ONLY, 1 dose, On [place] 01/08/25 at 1330, at 999 mL/hr, Administer over 30 Minutes, Routine 1349 (New Bag - Prov ider: Azalia Jorge RN)1356 (Stopped - Provider: Enrique Barillas RN - Comment: Stopped in JUL, continued by EMS)1419 (Due: Stopped - Provider: Azalia Jorge RN) sodium chloride flush injection 10 mL 10 mL, IV, EVERY 12 HOURS (BlD), First dose on [place] 01/08/25 at 1330, Until Discontinued, Routine 1356 (Given - Provid er: Azalia Jorge RN)2100 (Due) sodium chloride flush injection 10 mL 10 mL, IV, SEE ADMIN INSTRUCTIONS, Starting on [place] 01/08/25 at 1329, Until Discontinued, Routine Continuous Medication Order 01/06/2025 01/07/2025 01/08/2025 heparin in 0.45% NaCl 25,000 unit/250 mL infusion 12 Units/kg/hr 78.7 kg (9.444 mL/hr, rounded to 9.4 mL/hr), IV, TITRATE, Starting on [place] 01/08/25 at 1330, Until Discontinued, Indication: ACS/STEMI, Dosing by: PER PROTOCOL: Delegate to facility protocol per indication, Re-bolus within Protocol? No, titrate infusion ONLY 1355 (New Bag - Prov ider: Azalia Jorge RN)1356 (Stopped - Provider: Enrique Barillas RN - Comment: Stopped in [facility]UL, continued by EMS) documented in this encounter
--- NOTE | 2025-01-08 14:35 | ECG_ITS ---
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 Measurements Intervals [place] Rate: 124 P: 0 IA: 0 QRS: -54 QRSD: 150 T: 0 QT: 332 QTc: 478 Interpretive Statements ATRIAL FIBRILLATION WITH RAPID VENTRICULAR RESPONSE WITH ABERRANT CONDUCTION OR VENTRICULAR PREMATURE COMPLEXES INTRAVENTRICULAR CONDUCTION DELAY [130+ ms QRS DURATION] No previous ECG available for comparison Electronically Signed On 01-10-2025 08:45:07 CDT by Bebo García M.D. [email or web address]
--- OUTSIDE RECORDS SUMMARY | 2025-01-08 14:40 | XMS_ITS | Encounter Summary ---
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
--- OUTSIDE RECORDS SUMMARY | 2025-01-08 14:40 | XMS_ITS | Clinical Summary ---
Author Organization [facility] Address [address] [place] [address] Phone Care Team Providers Care Crester Name Role Phone Unavailable Primary Care Provider Unavailabl e Allergies Active Allergy Reactions Criticality Noted Date Comments Lisinopril Cough Low 01/08/2025 Medications amLODIPine (NORVASC) 10 mg tablet Take 10 mg by mouth daily. Active aspirin (ANDREZ CHEWABLE) 81 mg Tablet, Chewable Take 81 mg by mouth daily. Active atorvastatin (LIPITOR) 80 mg tablet Take 80 mg by mouth daily at bedtime. Active Cholecalciferol, Vitamin D3, 50 mcg (2,000 unit) Capsule Take by mouth. Active cyanocobalamin (VITAMIN B-12) 500 mcg tablet Take 1,000 mcg by mouth daily. Active glimepiride (AMARYL) 2 mg tablet Take 1 mg by mouth daily with breakfast. Active losartan (COZAAR) 50 mg tablet Take 50 mg by mouth daily. Active metFORMIN (GLUCOPHAGE) 1,000 mg tablet Take 1,000 mg by mouth 2 times daily with meals. Active metoprolol tartrate (LOPRESSOR) 100 mg tablet Take 100 mg by mouth 2 times daily. Active omeprazole (PriLOSEC) 20 mg Capsule, Delayed Release(E.C.) Take 20 mg by mouth daily. Active Active Problems Problem Noted Date Diagnosed Date ST elevation myocardial infa rction involving left anterior descending (LAD) coronary artery 01/08/2025 Encounters Date Type Department Care Team Description 01/08/2025 1:17 PM CDT - 01/08/2025 1:56 PM CDT Emergency [facility] Emergency Medicine [address] [facility] [address] [place] [address] elevation myocardial infarction involving left anterior descending (LAD) coronary artery ([facility]) (Primary Dx) Discharge Disposition: Acute Care Hospital 01/08/2025 Travel 11/04/2024 Patient Outreach [facility] [address] [place] [id number] Jeannie Michelle MD Primary Care Outreach (PCP Attribution / New patient - Called patient's number to schedule appointment. Invalid number If patient returns call, please schedule with Dr. Jeannie Michelle (who is listed by insurance as PCP) or APPs in that office or any [facility] Primary Care Physician. If they are not interested in establishing care with [facility], please ask them to call the number on the back of their insurance card to update their insurance plan with the correct PCP.) from Last 3 Months Social History Tobacco Use Types Packs/Day Years [...] on file Sexual Orientation Not on file Last Filed Vital Signs Vital Sign Reading [...] Mass Index 24.91 01/08/2025 1:18 PM CDT Plan of Treatment Health Maintenance Due Date Last Done Comments COLORECTAL SCREENING 1994 Colorectal Cancer Screening 1994 FIT-DNA Q 3 years 1994 FIT/FOBT Q 1 year 1994 Flex Sig/CT Colonography Q 5 years 1994 RSV VACCINE (60+ or ) (1 - 1-dose 75+ series) 2024 INFLUENZA VACCINE (#1) 2024 , 04/03/2023, 04/06/2022, Additional history exists DTAP/TDAP/TD VACCINES (2 - T d or Tdap) 11/10/2025 11/11/2015, 05/21/2013 PNEUMOCOCCAL VACCINE 50+ YEARS Completed 01/17/2018 , 11/11/2015 ZOSTER VACCINE Completed 03/04/2024, 09/06/2023 Procedures Procedure Name Priority Date/Time Associated Diagnosis Comments EKG 12-LEAD Stat 01/08/2025 1:47 PM CDT PTT Stat 01/08/2025 1:26 PM CDT TROPONIN BASELINE, 5TH GEN Stat 01/08/2025 1:26 PM CDT MAGNESIUM LEVEL Stat 01/08/2025 1:26 PM CDT C-REACTIVE PROTEIN Stat 01/08/2025 1: 26 PM CDT LACTIC ACID Stat 01/08/2025 1:26 PM CDT TSH Stat 01/08/2025 1:26 PM CDT BRAIN NATRIURETIC PEPTIDE, BNP OR PROBNP Stat 01/08/2025 1:26 PM CDT COMPREHENSIVE METABOLIC PANEL Stat 01/08/2025 1:26 PM CDT D-DIMER Stat 01/08/2025 1:26 PM CDT PROTIME-INR Stat 01/08/2025 1:26 PM CDT SEDIMENTATION RATE Stat 01/08/2025 1: 26 PM CDT CBC WITH DIFFERENTIAL Stat 01/08/2025 1:26 PM CDT from Last 3 Months Results * EKG 12 lead (01/08/2025 1:47 PM CDT) Evonne Moreno, FRONT END DRIVER - 01/08/2025 1:47 PM CDT Malcolm Medeiros MD 01/08/2025 1:49 PM EKG 12 lead Date/Time: 01/08/2025 1:47 PM Performed by: Malcolm Medeiros MD Authorized by: Malcolm Medeiros MD ECG interpreted by ED Physician in the absence of a electrician marine: yes Rate: ECG rate: 97 ECG rate [...] a past medical history of Diabetes mellitus ([facility]), GERD(gastroesophageal reflux disease), and Hypertension. SURGICAL: Patient has a past surgical history that includes cholecystectomy andfoot amputation through metatarsal (Left). ALLERGIES Lisinopril PHYSICAL EXAM INITIAL VS BP: (!) 90/57 (01/08/25 1318), Heart Rate: 97 bpm (01/08/25 131), Resp:24 (01/08/251317), Pulse: (not recorded), Temp: 97.5 F (36.4 C)(01/08/25 131), Temp src: Temporal (01/08/251317), SpO2: 91 % (), Height: 5' 10 (177.8 cm) (01/08/25 1318), Weight: 78.7 kg (173 lb9.6 oz) (01/08/25 1318), BMI (Calculated): 24.89 (01/08/251317) No LMPfor male [...] Patient appears pale. Cardiovascular: EKG shows acute OR, STEMI. Neurological: Patient is alert and oriented [...] ED Physician in the absence of a electrician marine: yes Rate: ECG rate: 97 ECG rate [...] Acute Myocardial Infarction (STEMI) EKG showing acute OR, STEMI. Started on aspirin 325 mg chewable andheparin drip. Blood work ordered. Case discussed with electrician marine . Accepted for STEMI treatment. Clopidogrel 600 mg administered.Transfer to hospital. - Gastroesophageal Reflux Disease (GERD) Currently taking omeprazole. Continue medication regimen. Avoid triggerfoods. ED Course: 1326: EKG showing acute OR, STEMI. Started on aspirin 325 mg chewable andheparin drip. Blood work ordered. Case discussed with electrician marine Dr. Gonzalez from [place]. Patientaccepted for STEMI treatment. Clopidogrel 600 mg [...] Disposition: Patient will be emergently transferred to [facility] in [place] for Cath Labtransfer for a STEMI. Medical [...] Temp src: Temporal (01/08/251317), SpO2: 91 % () CLINICAL IMPRESSION Diagnosis Diagnosis Comment Added By Time Added ST elevation myocardial infarction involving left anterior descending(LAD) coronary artery ([facility]) [I21.02] Malcolm Medeiros MD :39 PM DISPOSITION, EDUCATION AND MEDICATION RECONCILIATION Medications reconciled. See after visit summary for patient education ondischarged patients. ED Disposition ED Disposition Transfer Condition Stable User Malcolm Medeiros MD Date/Time Flores Jan 08, 2025 1:39 PM Comment -- Malcolm Medeiros MD ECG ORDERABLES Final Result * (ABNORMAL) TROPONIN BASELINE, 5TH GEN (01/08/2025 1:26 PM CDT) TROPONIN T, BASELINE 5TH GEN 4,423(HH) <=15 ng/L 01/08/2025 1:52 PM CDT [facility] Blood Collection / Unknown 01/08/2025 1:26 PM CDT 01/08/2025 1:34 PM CDT Narrative [facility] - 01/08/2025 1:52 PM CDT Troponin elevated. Malcolm Medeiros MD CHEMISTRY ORDERABLES Final Resu lt [facility] CLIA # [id number] [address] [place] [address] * (ABNORMAL) LACTIC ACID (01/08/2025 1:26 PM CDT) [facility] LACTIC ACID 5.2(HH) <=2.0 mmol/L 01/08/2025 1:52 PM [facility] Blood BLOOD SPECIMEN / Unknown Collection / Unknown 01/08/2025 1:26 PM CDT 01/08/2025 1:34 PM CDT Malcolm Medeiros MD CHEMISTRY ORDERABLES Final Resu lt [facility] CLIA # [id number] [address] [place] [address] * (ABNORMAL) CBC WITH DIFFERENTIAL (01/08/2025 1:26 PM CDT) [facility] WBC 14.3(H) 4.2 - 9.1 K/uL 01/08/2025 1:38 PM [facility] RBC 3.77(L) 4.63 - 6.08 M/uL 01/08/2025 1:38 PM [facility] HEMOGLOBIN 11.3(L) 13.7 - 17.5 g/dL 01/08/2025 1:38 PM [facility] HEMATOCRIT 32.7(L) 40.1 - 51.0 % 01/08/2025 1:38 PM [facility] MCV 86.7 79.0 - 92.2 fL 01/08/2025 1:38 PM [facility] MCH 30.0 25.7 - 32.2 pg 01/08/2025 1:38 PM [facility] MCHC 34.6 32.3 - 36.5 g/dL 01/08/2025 1:38 PM [facility] RDW 13.2 11.0 - 14.5 % 01/08/2025 1:38 PM [facility] RDW-STDEV 41.3 36.9 - 56.9 fL 01/08/2025 1:38 PM [facility] PLATELETS 210 130 - 400 K/uL 01/08/2025 1:38 PM T [facility] MPV 10.0 10.0 - 14.8 fL 01/08/2025 1:38 PM [facility] NEUTROPHILS 77(H) 34 - 68 % 01/08/2025 1:38 PM [facility] LYMPHOCYTES 13(L) 22 - 53 % 01/08/2025 1:38 PM [facility] MONOCYTES 9 5 - 12 % 01/08/2025 1:38 PM [facility] EOSINOPHILS 0(L) 1 - 7 % 01/08/2025 1:38 PM [facility] BASOPHILS 1 0 - 1 % 01/08/2025 1:38 PM [facility] IMMATURE GRANULOCYTES 0 % 01/08/2025 1:38 PM [facility] NEUTROPHIL ABSOLUTE 11.01(H) 1.78 - 5.38 K/uL 01/08/2025 1:38 PM [facility] LYMPHOCYTE ABSOLUTE 1.85 1.20 - 3.40 K/uL 01/08/2025 1:38 PM T [facility] MONOCYTE ABSOLUTE 1.28(H) 0.30 - 0.82 K/uL 01/08/2025 1:38 PM [facility] EOSINOPHIL ABSOLUTE 0.03(L) 0.04 - 0.54 K/uL 01/08/2025 1:38 PM [facility] BASOPHILS ABSOLUTE 0.09(H) 0.01 - 0.08 K/uL 01/08/2025 1:38 PM [facility] IMMATURE GRANULOCYTES ABSOLUTE 0.06 K/uL 01/08/2025 1:38 PM [facility] Blood Collection / Unknown 01/08/2025 1:26 PM CDT 01/08/2025 1:34 PM CDT us Malcolm Medeiros MD HEMATOLOGY ORDERABLES Final [id number] [address] [place] [id number] * (ABNORMAL) PTT (01/08/2025 1:26 PM CDT) PTT 24.1(L) 25.1 - 35.4 seconds 01/08/2025 1:46 PM CDT [facility] Blood Collection / Unknown 01/08/2025 1:26 PM CDT 01/08/2025 1:34 PM CDT Malcolm Medeiros MD HEMATOLOGY ORDERABLES Final Res ult Performing Organization Address [facility]/State/ZIP Co de Phone Number [facility] CLIA # [id number] [address] [place] [address] * SEDIMENTATION RATE (01/08/2025 1:26 PM CDT) Pathologist [facility] ESR (SEDIMENTATION RATE) 15 0 - 20 mm/Hr 01/08/2025 1:47 PM CDT [facility] Blood Collection / Unknown 01/08/2025 1:26 PM CDT 01/08/2025 1:34 PM CDT Narrative [facility] - 01/08/2025 1:47 PM CDT Tube Lot: #[id number] Exp Date: 05/20/2026 QC1 LOT [id number] EXP.05/25/2025 QC2 LOT [id number] EXP.05/25/2025 us Malcolm Medeiros MD HEMATOLOGY ORDERABLES Final Res ult [facility] CLIA # [id number] [address] [place] [address] * PROTIME-INR (01/08/2025 1:26 PM CDT) PROTIME 12.4 12.1 - 14.3 Seconds 01/08/2025 1:46 PM CDT [facility] INR 0.9 0.9 - 1.1 01/08/2025 1:46 PM CDT [facility] Blood Collection / Unknown 01/08/2025 1:26 PM CDT 01/08/2025 1:34 PM CDT us Malcolm Medeiros MD HEMATOLOGY ORDERABLES Final Res ult Performing Organization Address City/[facility]/ZIP Co de Phone Number [facility] CLIA # [id number] [address] [place] [phone] * (ABNORMAL) D-DIMER (01/08/2025 1:26 PM CDT) D-DIMER QUANT 0.82(H) <0.50 ug/mL FEU 01/08/2025 1:50 PM CDT [facility] Blood Collection / Unknown 01/08/2025 1:26 PM CDT 01/08/2025 1:34 PM CDT Narrative [facility] - 01/08/2025 1:50 PM CDT D-Dimer assay [...] ORDERABLES Final Res ult Performing Organization Address City/[facility]/ZIP Co de Phone Number [facility] CLIA # [id number] [address] [place] [phone] * (ABNORMAL) C-REACTIVE PROTEIN (01/08/2025 1:26 PM CDT) CRP 6.2(H) <5.0 mg/L 01/08/2025 1:54 PM CDT [facility] Blood Collection / Unknown 01/08/2025 1:26 PM CDT 01/08/2025 1:34 PM CDT us Malcolm Medeiros MD CHEMISTRY ORDERABLES Final Resu lt Performing Organization Address [facility] Co de Phone Number [facility] CLIA # [id number] [address] [place] [address] * (ABNORMAL) TSH (01/08/2025 1:26 PM CDT) TSH 9.85(H) 0.27 - 4.20 uIU/mL 01/08/2025 1:58 PM CDT [facility] Blood Collection / Unknown 01/08/2025 1:26 PM CDT 01/08/2025 1:34 PM CDT us Malcolm Medeiros MD CHEMISTRY ORDERABLES Final Resu lt Performing Organization Address [facility] de Phone Number [facility] CLIA # [id number] [address] [place] [address] * (ABNORMAL) BRAIN NATRIURETIC PEPTIDE, BNP OR PROBNP (01/08/2025 1:26 PM CDT) PROBNP, N TERMINAL 8,328(H) 0 - 450 pg/mL 01/08/2025 1:52 PM CDT [facility] Comment: INTERPRETIVE COMMENT based on diagnosis: Diagnostic [...] ORDERABLES Final Resu lt Performing Organization Address [facility]/ZIP Co de Phone Number [facility] CLIA # [id number] [address] [place] [address] * MAGNESIUM LEVEL (01/08/2025 1:26 PM CDT) MAGNESIUM 1.7 1.6 - 2.4 mg/dL 01/08/2025 1:54 PM CDT [facility] Blood Collection / Unknown 01/08/2025 1:26 PM CDT 01/08/2025 1:34 PM CDT Malcolm Medeiros MD CHEMISTRY ORDERABLES Final Resu lt Performing Organization Address [facility] Co de Phone Number [facility] CLIA # [id number] [address] [place] [address] * (ABNORMAL) COMPREHENSIVE METABOLIC PANEL (01/08/2025 1:26 PM CDT) SODIUM 134(L) 136 - 145 mmol/L 01/08/2025 1:54 PM CDT [facility] POTASSIUM 5.2(H) 3.5 - 5.1 mmol/L 01/08/2025 1:54 PM CDT [facility] CHLORIDE 97(L) 98 - 107 mmol/L 01/08/2025 1:54 PM CDT [facility] CO2 19(L) 22 - 29 mmol/L 01/08/2025 1:54 PM CDT [facility] CALCIUM 10.4(H) 8.8 - 10.2 mg/dL 01/08/2025 1:54 PM CDT [facility] BUN 34(H) 8 - 23 mg/dL 01/08/2025 1:54 PM [facility] CREATININE 2.48(H) 0.67 - 1.17 mg/dL 01/08/2025 1:54 PM [facility] Comment:The GFR result is no t clinically significant on patients <18 or >70 years of age. GLUCOSE 246(H) 74 - 99 mg/dL 01/08/2025 1:54 PM [facility] TOTAL PROTEIN 7.2 6.6 - 8.7 g/dL 01/08/2025 1:54 PM [facility] ALBUMIN 4.0 3.5 - 5.2 g/dL 01/08/2025 1:54 PM [facility] BILIRUBIN TOTAL 0.4 0.0 - 1.2 mg/dL 01/08/2025 1:54 PM [facility] ALKALINE PHOSPHATASE 66 40 - 129 U/L 01/08/2025 1:54 PM [facility] AST 361(H) 0 - 50 U/L 01/08/2025 1:54 PM [facility] ALT 36 0 - 50 U/L 01/08/2025 1:54 PM [facility] GFR 26 mL/min/1.7 3 sq meter 01/08/2025 1:54 PM [facility] Comment:eGFR calculated with 2020 CKD-EPI equation. Vegetarian diet, extremely high or low muscle mass, and may affect results. Cystatin C with Glomerular Filtration Rate is a suitable alternative for these patients. ANION GAP 18 5 - 20 mmol/L 01/08/2025 1:54 PM [facility] Blood Collection / Unknown 01/08/2025 1:26 PM CDT 01/08/2025 1:34 PM T us Malcolm Medeiros MD CHEMISTRY ORDERABLES Final Resu lt [facility] CLIA # [id number] [address] [place] [address] from Last 3 Months Insurance * Guarantor: [facility] [employer] (C) Account Type Relation to Patient Date of Phone Billing Address Corporate Other DEFAULT ADDRESS [address] [employer] [facility] DUAL COMPLETE HMO [facility] [id number]
--- NOTE | 2025-01-08 14:42 | W.ED.GENADLT ---
HPI - General Adult General: Chief complaint: Cardiac Arrest/CPR Stated complaint: stemi Time Seen by Provider: 01/08/25 14:37 History of Present Illness: 74-year-old male, patient was an ER to ER transfer for STEMI , on arrival here he is being paced and is nonresponsive. He had deteriorated and route. They had given the patient Plavix aspirin and was on heparin drip and route heparin drip was stopped using externally paced on arrival when he first arrived in the room he has agonal respirations no palpable pulse. Does not appear to have capture. See code notes Related Data Home Medications ?Medication ?Instructions ?Recorded ?Confirmed amlodipine 10 mg tablet 10 mg PO DAILY 09/05/23 09/05/23 aspirin 81 mg tablet,delayed 81 mg PO DAILY 09/05/23 09/05/23 release (Shelly Low Dose Aspirin) atorvastatin 40 mg tablet 40 mg PO DAILY 09/05/23 09/05/23 losartan 25 mg tablet 25 mg PO DAILY 09/05/23 09/05/23 magnesium oxide 200 mg PO DAILY 09/05/23 09/05/23 metformin 1,000 mg tablet 1,000 mg PO BID 09/05/23 09/05/23 metoprolol tartrate 100 mg tablet 100 mg PO BID 09/05/23 09/05/23 Allergies Allergy/AdvReac Type Severity Reaction Status Date / Time No Known Allergies Allergy Unverified 09/05/23 10:28 Review of Systems General: Reports: ROS unobtainable due to endotracheal tube [facility] ED PFSH: Surgical History Hx of cholecystectomy History of amputation of left foot Social History Smoking and tobacco/nicotine status: former use of tobacco/nicotine Second hand smoke exposure: No Alcohol intake: never Substance/Drug Use: never Adopted: No Caregiver/support person: No Lives independently: Yes Household members: spouse Housing: House Marital status: Number of children: 3 Highest education level completed: High School Graduate service: Yes branch: [employer] Physical Exam Resp: OTHER: Breath sounds equal bilaterally after placement of the ET tube. Skin: OTHER: Mottling lower extremities Procedures Intubation sedative: none Laryngoscope: fiber optic video scope ET Tube Size: 8 ET Tube Uncuffed: No Tube Secured Depth (cm): 22 Tube Secured Location: teeth Tube Placement Confirmation: visualized tube passing through cords, equal breath sounds bilaterally, no breath sounds over epigastrium and confirmation by capnometry Patient Tolerated Procedure: well Additional Comments: Patient ventilating well ET tube placement to be checked at later time he emergently needs to go to the Mental [facility] Advanced Practice Nurse for surgically severe interventional procedure MDM - General Adult Medical Decision Making Initially on arrival patient is being paced however does not have capture and is not perfusing. Pacemaker leads are taken no CPR initiated he was intubated during CPR. Patient developed several very rhythm with he did have V-fib he also had V. tach that was sustained these were both shocks to the code note he had A-fib with RVR that appeared to be unstable that was shocked on synchronized mode as well. Dr. García was present during the code. Amiodarone was started for rate control. He received several rounds of epi he also received calcium chloride for initial ABG reviewed markedly abnormal with a pH of 6.9PO2 129 pCO2 46 bicarb 19 potassium 5.6. Accompanying the patient to the Mental Health Advanced Practice Nurse there he was started on bicarb drip at 75 mL/h he was also sent had been started on amiodarone in the ED for his wide-complex tachycardia. Dr. García's assumed care in the ED. Lab Data 01/08/25 14:35 01/08/25 14:35 Laboratory Results WBC 18.77 10^3/uL (3.29-11.43) H 01/08/25 14:35 RBC 3.57 10^6/uL (3.85-5.65) L 01/08/25 14:35 Hgb 10.60 g/dL (11.27-16.99) L 01/08/25 14:35 Hct 34.7 % (37-53) L 01/08/25 14:35 MCV 97.2 fl (82-101) 01/08/25 14:35 MCH 29.7 pg (27-33) 01/08/25 14:35 MCHC 30.5 g/dL (30-55) 01/08/25 14:35 RDW 13.2 % (12.1-15.1) 01/08/25 14:35 Plt Count 193 10^3/cmm (157-399) 01/08/25 14:35 MPV 10.5 fL (7.4-10.4) H 01/08/25 14:35 Neut % (Auto) 61.9 % 01/08/25 14:35 Lymph % (Auto) 26.9 % 01/08/25 14:35 [place] % (Auto) 9.9 % 01/08/25 14:35 Eos % (Auto) 0.1 % 01/08/25 14:35 Baso % (Auto) 0.5 % 01/08/25 14:35 Neut # (Auto) 11.62 10^3/uL (1.8-7.7) H 01/08/25 14:35 Lymph # (Auto) 5.0 10^3/uL (0.8-4.8) H 01/08/25 14:35 [place] # (Auto) 1.9 10^3/uL (0.2-0.9) H 01/08/25 14:35 Eos # (Auto) 0.0 10^3/uL (0.0-0.8) 01/08/25 14:35 Baso # (Auto) 0.1 10^3/uL (0.0-0.1) 01/08/25 14:35 Nucleated RBC % (auto) 0.3 % 01/08/25 14:35 Nucleated RBCs # 0.1 /100WBC 01/08/25 14:35 PT 14.70 SECONDS (12.1-14.9) 01/08/25 14:35 INR 1.08 (0.8-1.2) 01/08/25 14:35 Specimen Type Arterial 01/08/25 14:40 Sample Site Radial, right 01/08/25 14:40 ABG pH 6.90 (7.35-7.45) L* 01/08/25 14:40 ABG pCO2 46.3 mmHg (35-45) H 01/08/25 14:40 ABG pO2 129.0 mmHg (80.0-100.0) H 01/08/25 14:40 ABG PO2/FiO2 Ratio 129 01/08/25 14:40 ABG HCO3 9.0 mmol/L (22-26) L 01/08/25 14:40 ABG O2 Saturation 95.5 01/08/25 14:40 ABG Base Excess -23.3 mmol/L (-2.0-2.0) L 01/08/25 14:40 Yg Test Pos 01/08/25 14:40 A-a O2 Gradient 68.2 mmHg (5-10) H 01/08/25 14:40 Hematocrit 33.5 % (42-52) L 01/08/25 14:40 Hgb O2 Saturation 94.8 % (95-100) L 01/08/25 14:40 Carboxyhemoglobin 0.4 %THgb (0.4-20.1) 01/08/25 14:40 Methemoglobin 0.3 % (0.4-1.5) L 01/08/25 14:40 Total Hemoglobin 10.9 g/dL (14-18) L 01/08/25 14:40 Sodium 135.0 mmol/L (131-143) 01/08/25 14:40 Potassium 5.6 mmol/L (3.5-5.0) H 01/08/25 14:40 Glucose 420.0 mg/dL (70-115) H 01/08/25 14:40 Ionized Calcium 2.3 mmol/L (1.1-1.4) H* 01/08/25 14:40 O2 Delivery Device Ambu 01/08/25 14:40 FiO2 100.0 % 01/08/25 14:40 Assistant Program Manager ID Amh 01/08/25 14:40 Troponin T Baseline 3831 ng/L (0-15) H* 01/08/25 14:35 No radiology studies performed this visit Critical Care Time Critical Care Time: Critical Care Time: Yes Total Critical Care Time: 40 Attestation: The high probability of a clinically significant, sudden or life threatening deterioration of the patient's cardiovascular respiratory system(s) required my full and direct attention, intervention and personal management. The critical care time is as shown. This time is in addition to time spent performing any reported procedures but includes the following: [x] Data and vital sign review and interpretation [x] Patient assessment, examination and intervention [x] Documentation [x] Medication orders and management Discharge Plan Discharge Patient Disposition: Admitted As Inpatient Clinical Impression: ST elevation [place] (STEMI), Cardiac arrest, Acute respiratory failure, Acute myocardial infarction Condition: Stable Coding Level of Care Code ED Recording Studio Set Up Worker for Jose Bang
[2025-01-08 14:43] LABS: Hematocrit 34.7 % (37-53); Hemoglobin 10.60 g/dL (11.27-16.99); Mean Corpuscular HGB Conc 30.5 g/dL (30-55); Mean Corpuscular Hemoglobin 29.7 pg (27-33); Mean Corpuscular Volume 97.2 fl (82-101); Nucleated Red Blood Cells % 0.3 %; Platelet Count 193 10^3/cmm (157-399); Red Blood Count 3.57 10^6/uL (3.85-5.65); White Blood Count 18.77 10^3/uL (3.29-11.43)
--- NOTE | 2025-01-08 14:44 | XACV_ITS ---
Ht: 178 cm Wt: 78 kg BSA: 1.98 m2 Gender: Male : 1950 Exam Priority: Routine Procedure(s): Procedure Description: Diagnostic procedure Procedure Description: PCI procedure Procedure Description: Drug Eluting Coronary Stent Procedure Description: PTCA Procedure Description: Coronary Thrombectomy Procedure Description: Miscellaneous Procedure Description: IABP Insertion Procedure Description: Temporary Pacemaker Insertion Procedure Description: ACT Procedure Description: Coronary Angiography Dinesh BELTRAN; Diagnostic Cath Status: Emergency Diagnostic Findings * INDICATION: Cardiac arrest/ delayed presentation of inferoposterior STEMI. * Left Main has no significant disease. * Left Anterior Descending has 60% moderate proximal vessel stenosis. Diffuse severe disease seen in the diagonal artery. * Right Coronary Artery is a small sized vessel with severe diffuse disease. * Proximal Circumflex: total thrombotic occlusion, MARIANELA: 0 flow. * Coronary angiography shows left dominance. PCI Status: Emergency PCI Indication: STEMI - Unstable (> 12 hrs from Sx) Interventional Findings * Procedure detail: Patient had cardiac arrest as EMS was bringing him to the ER. He was in PEA. CPR continued for 3 cycles. ROSC was obtained. Multiple shocks needed as patient again went into brief VT episodes. Was brought to the cardiac Film Masker. Left circumflex artery is totally occluded. Status post PCI with 1 stent. Patient had severe bradycardia and required temporary transvenous pacemaker. He was in cardiogenic shock. Was put on epinephrine and Levophed gtt. multiple epi pushes also needed. Bedside echo showing EF of 40%. Transferred to ICU in critical condition. Discussed in detail with family and they understand the critical nature of his illness and current situation.pH is 6.9 on ABG. Intraaortic balloon pump placed. Because of severe peripheral artery diease, impella can not be placed. . * Proximal Circumflex: 100% stenosis treated with a AB TREK 2.50X15 RX BALLOON, and MDT R AIDAN 2.75X30 MINDY. 0% residual stenosis, MARIANELA: 3 flow. Conclusions 1. Total thrombotic occlusion of proximal left circumflex artery status post revascularization with 1 stent. Patient in cardiogenic shock status post intra-aortic balloon pump placement. Severe bradycardia treated with transvenous pacemaker. Patient's prognosis is guarded.. 2. Proximal Circumflex was treated with a Balloon, and Drug Eluting Stent. Recommendations * Continue aspirin and plavix. We will consult medicine team for further management of medical issues and vent management. Continue levophed and epi gtt. Balloon pump on 1:1 augmentation. ICU monitoring. * Temporary pacemaker in place. Interventional RX Recommendation: PCI w/o planned CABG Diagnostic RX Recommendation: PCI w/o planned CABG Anticoagulation: Heparin Pressures Phase:Rest AO : 55 / -3 ( 28 ) @ 4:21:00 PM 94 / 46 ( 62 ) @ 4:39:00 PM 128 / 52 ( 78 ) @ 4:51:00 PM 97 / 41 ( 58 ) @ 5:00:00 PM 88 / 40 ( 55 ) @ 5:04:00 PM 99 / 22 ( 59 ) @ 5:15:00 PM 120 / 28 ( 68 ) @ 5:32:00 PM 134 / 51 ( 83 ) @ 5:44:00 PM Clinical Evaluation EBL: 5mL-10mL Procedural Details Pre-Procedure Time Out. Identified patient by full name and date of as verbalized by the EMS d/t pt arrived being coded. Does the consent match the physician's order: N/A Emergent; Informed Consent not obtained due to time critical life threat. Accurate & Complete Informed Consent: N/A Emergent; Informed Consent not obtained due to time critical life threat. Inpatient/Outpatient History & Physical on Chart: N/A Emergent; Informed Consent not obtained due to time critical life threat. If H&P is completed, is and addenduem needed: N/A Emergent; Informed Consent not obtained due to time critical life threat; If yes, is the addendum complete: N/A Emergent; Informed Consent not obtained due to time critical life threat. Visualize and Verify Site with Patient/Guarantor: N/A. Relevant Radiology Images available: N/A Emergent; Informed Consent not obtained due to time critical life threat. Procedure started. Film Masker Indications: ACS > 24 hours. Chest Pain Symptom Assessment: Atypical Angina. Cardiovascular Instability: Yes, if yes, Ventricular Arrhythmias. Correct patient, site and procedure confirmed by cath team. Current diagnosis: STEMI. IV Site on Arrival: 20 gauge in the left anticubital. IV Fluids: 0.9% NaCl at KVO. 0 mL infused prior to cardiac cath technologist. Pre Procedural Pulses: bilateral femoral was 2+. bilateral groins was prepped with chloroprep then draped in the usual sterile fashion. Baseline sample Acquired. HR: 44 BPM. Physician notified. Patient arrived to cardiac cath technologist on a ventilator and will be managed by respiratiory. Physician arrived. Physician scrubbed in. Immediate Pre-Procedure Time Out. Lidocaine 1% infiltrated to the right groin. Arterial access obtained with micropuncture set. Venous access obtained with micropuncture set. 6 lithuanian JR 4 guide catheter was inserted over the wire. Admit Source: Emergency department. Cine run performed of [facility]. Guide catheter out. 6 lithuanian XB 3.5 guide catheter was inserted over the wire. TEMPORARY PACEMAKER:. Temporary pacer inserted. Temporary pacemaker off, leads in place. Cine run performed of [facility]. Runthrough guidewire was advanced through the guide catheter to lesion in the prox Circ. Pronto catheter inserted over the wire and directed to the proximal circumflex. Manual aspiration performed. Pronto catheter out. Balloon inserted to lesion in the prox Circ. Inflation number : 1 A AB TREK 2.50X15 RX BALLOON was prepped and advanced across the Prox CX , then inflated to 8 RUSS for 0:07 seconds. Inflation number: 2 The AB TREK 2.50X15 RX BALLOON was reinflated across the Prox CX, to 10 RUSS for 0:11 seconds. Balloon out. Results checked. Temporary pacemaker on. Settings: Async, MA 4, rate 60. Stent inserted to lesion in the prox Circ. Inflation Number : 3 A FAHEEM Crockett AIDAN 2.75X30 MINDY -Lot Number# [id number] Exp 08/01/2027 was prepped and advanced across the Prox CX. The stent was deployed at 12 RUSS for 0:15 seconds. Stent balloon out over wire. Wire out. ACT drawn. Results out of range high. Therapeutic limits - pre-heparin administration 90-150 seconds and monitoring heparin during a vascular procedure >250 seconds. Levophed titrated to 18mcg/min. Guide catheter out. Levophed gtt titrated to 20mcg/min. Lidocaine 1% infiltrated to the left groi. Arterial access obtained with micropuncture set using ultrasound guidance. Epinephrine gtt titrated to 0.4mcg/kg/min. Dr García scrubbed out to talk to pt family in waiting room. Dr García scrubbed in to place IABP. ACT drawn. Results 353 seconds. Therapeutic limits - pre-heparin administration 90-150 seconds and monitoring heparin during a vascular procedure >250 seconds. 6 Angolan sheath exchanged for IABP 7 Angolan sheath. 40cc IAB inserted in the Left Femoral Artery. Augmentation: 1:1. Trigger: Pressure. Trigger: ECG. Augmenter BP: 128. A Suture was successful obtaining hemostatsis at the Left Femoral artery insertion site. A Suture was successful obtaining hemostatsis at the Right Femoral vein insertion site. A Suture was successful obtaining hemostatsis at the Right Femoral artery insertion site. ABG's Drawn. Rhythm: vtach, defibrillated at 120J x1. Sheath(s) sutured into position with 2-0 silk and sterile 4x4's and Op-site applied over the site. No oozing or signs and symptoms of hematoma noted. Arterial sheath flushed and connected to tranducer and pressure bag with heparinized saline. Post Procedure: Pulses reassessed and unchanged. No VTE prophylaxis required. Medication's Wasted: Lidocaine 1% = 10 mL. Medication's Wasted: Heparin = 1000 u. Total IV fluids: 700 mL. PCI Indication: STEMI - Unstable (> 12 hrs from symptom onset). Post-op diagnosis: Occluded Prox Circ x 1 stent, Cardiogenic shock with IABP placement. Complications: none. Estimated blood loss: 5mL-10mL. Circulation: W/N/L, pulses unchanged. Nausea/Vomiting: No. Airway - Mechanical ventilation. Responsiveness - Sedated, on mechanical ventilation. Procedure completed. Patient transferred by bed to ICU. IABP Trigger changed to Pressure. Vital chart was stopped. Access Site Site: Right Femoral artery Sheath Size: 6 Fr Hemostasis Method: Suture Hemostasis Success: Successful Site: Right Femoral vein Sheath Size: 6 Fr Hemostasis Method: Suture Hemostasis Success: Successful Site: Left Femoral artery Sheath Size: 6 Fr Hemostasis Method: Suture Hemostasis Success: Successful Procedure Medications Start: 2:54 PM Stop: 2:54 PM Medication: Epinephrine Amount: 1 mg Route: I.V. Start: 2:55 PM Stop: 2:55 PM Medication: Versed Amount: 2 mg Route: I.V. Start: 2:57 PM Stop: 2:57 PM Medication: Sodium Bicarbonate Amount: 75 ml/hr Route: I.V. Start: 2:58 PM Stop: 2:58 PM Medication: Heparin Amount: 4000 units Route: I.V. Start: 3:01 PM Stop: 3:01 PM Medication: Epinephrine Amount: 1 mg Route: I.V. Start: 3:16 PM Stop: 3:16 PM Medication: Epinephrine Amount: 1 mg Route: I.V. Start: 3:17 PM Stop: 3:17 PM Medication: Heparin Amount: 1000 units Route: I.V. Start: 3:18 PM Stop: 3:18 PM Medication: Levophed (norepinephrine) Amount: 14 mcg/min Route: I.V. drip Start: 3:18 PM Stop: 3:18 PM Medication: 0.9% Saline Amount: 250 ml Route: I.V. bolus Start: 3:23 PM Stop: 3:23 PM Medication: Epinephrine Amount: 1 mg Route: I.V. Start: 3:25 PM Stop: 3:25 PM Medication: Versed Amount: 1 mg Route: I.V. Start: 2:56 PM Stop: 2:56 PM Medication: unlisted medication Amount: 1 amp(s) Route: I.V. Start: 3:33 PM Stop: 3:33 PM Medication: Epinephrine Amount: 0.2 mcg/min Route: I.V. Start: 3:36 PM Stop: 3:36 PM Medication: Epinephrine Amount: 1 mg Route: I.V. Start: 3:38 PM Stop: 3:38 PM Medication: Amiodarone (Cordarone) Amount: 1 mg/min Route: I.V. drip Start: 3:48 PM Stop: 3:48 PM Medication: Epinephrine Amount: 1 mg Route: I.V. Start: 4:40 PM Stop: 4:40 PM Medication: Sodium Bicarbonate Amount: 2 amp(s) Route: I.V. Start: 4:42 PM Stop: 4:42 PM Medication: Versed Amount: 1 mg Route: I.V. I, the attending physician, have reviewed and verified all procedure medications. Yes, all medications given per verbal order Report Signatures Finalized by Bebo García MD on 01/15/2025 09:41 AM
--- NOTE | 2025-01-08 14:45 | PC.NURSE ---
per [facility] 4mg Zofran, 100mcg Fentanyl, x2 Epi push, 700mL NS administered and heparin gtt d/c per verbal of Dr. García en route. EMS states started pacing when arrived to [facility] parking lot. per [facility] [place] nurse report, 600mg Plavix, 4000 unit heparin bolus, 500mL NS bolus, 324mg ASA administered; & heparin gtt started.
[2025-01-08 14:56] LABS: INR 1.08 (0.8-1.2); Prothrombin Time 14.70 SECONDS (12.1-14.9)
[2025-01-08 15:09] LABS: ABG PCO2 46.3 mmHg (35-45); Alveolar-Arterial Oxygen Gradi 68.2 mmHg (5-10); Arterial Blood Gas Hematocrit 33.5 % (42-52); Blood Gas Allen Test Pos; Blood Gas Operator Identificat AMH; Blood Gas Sample Site Radial, right; Blood Gas Sample Type Arterial; Carboxyhemoglobin 0.4 %THgb (0.4-20.1); Glucose Level-ABG 420.0 mg/dL (70-115); HCO3 ABG 9.0 mmol/L (22-26); Ionized Calcium Level - ABG 2.3 mmol/L (1.1-1.4); Methemoglobin 0.3 % (0.4-1.5); Oxygen Saturation ABG 95.5; PO2 ABG 129.0 mmHg (80.0-100.0); PO2 FiO2 Ratio Arterial Blood 129; Potassium Level - ABG 5.6 mmol/L (3.5-5.0); Sodium Level - ABG 135.0 mmol/L (131-143)
[2025-01-08 15:10] LABS: ABG PH Result 6.90 (7.35-7.45)
[2025-01-08 15:11] LABS: Troponin(5th) Baseline 3831 ng/L (0-15)
[2025-01-08 15:23] LABS: Alanine Aminotransferase 42 U/L (0-41); Albumin Level 3.5 g/dL (3.5-5.2); Alkaline Phosphatase 64 U/L (40-130); Anion Gap 28.0 (5-19); Aspartate Amino Transferase 217 U/L (0-40); Blood Urea Nitrogen 35 mg/dL (8-23); Calcium 9.3 mg/dL (8.5-10.5); Carbon Dioxide 10 mmol/L (22-29); Chloride 106 mmol/L (98-107); Globulin 2.1 g/dL (1.3-4.6); Glucose 293 mg/dL (65-115); NT Pro B Type Natriuretic Pept 9371 pg/mL (0-450); Osmolality Calculated 307 mOsm/kg (285-295); Potassium 5.0 mmol/L (3.5-5.1); Sodium 139 mmol/L (136-145); Total Protein 5.6 g/dL (6.6-8.7)
[2025-01-08 15:30] LABS: Partial Thromboplastin Time 191.8 SECONDS (23.9-36.7)
[2025-01-08 16:33] LABS: ABG PCO2 28.4 mmHg (35-45); Alveolar-Arterial Oxygen Gradi 77.5 mmHg (5-10); Arterial Blood Gas Hematocrit 29.2 % (42-52); Blood Gas Operator Identificat GD; Blood Gas Sample Site Not specified; Blood Gas Sample Type Arterial; Blood Gas Tidal Volume 0.50; Carboxyhemoglobin 0.6 %THgb (0.4-20.1); Glucose Level-ABG 353.0 mg/dL (70-115); HCO3 ABG 5.6 mmol/L (22-26); Ionized Calcium Level - ABG 1.5 mmol/L (1.1-1.4); Methemoglobin 0.3 % (0.4-1.5); Oxygen Saturation ABG 83.1; PEEP 8.0 cmH20; PO2 ABG 76.4 mmHg (80.0-100.0); PO2 FiO2 Ratio Arterial Blood 76; Potassium Level - ABG 5.3 mmol/L (3.5-5.0); Sodium Level - ABG 134.0 mmol/L (131-143)
[2025-01-08 16:35] LABS: ABG PH Result 6.91 (7.35-7.45)
--- NOTE | 2025-01-08 16:59 | PM.HP ---
Providers/Chief Complaint Admitting Physician: Bebo García MD/ Interventional cardiology Primary Care Provider: PRANEETH Adam Chief Complaint: Delayed STEMI History of Present Illness Kenny Currie is a 74 year old male with past medical history of hypertension, hyperlipidemia, diabetes who had been having chest pain symptoms since yesterday. It was severe. Today pain has improved however still 2/10. He presented to [facility]. EKG is consistent with delayed presentation of inferoposterior ST elevation AK with Q waves. During the transport from outside hospital to our emergency room, patient became decompensated. According to EMS blood pressure dropped and she became bradycardic. Epi push was given. He was put on transcutaneous pacemaker. On arrival to the ER, patient did not have any pulse. CPR was initiated. Initial rhythm was PEA. Once ROSC was obtained, patient went into VT and required shocks. Once ROSC was obtained again, we moved patient to cardiac Product Development Technician. Plan for coronary angiogram. Patient's heart rate is intermittently dropping to 30s. Blood pressure is dropping intermittently. Intubated in the ER. Review of Systems General: Reports: ROS unobtainable due to endotracheal tube Medications/Allergies Home Medications ?Medication ?Instructions ?Recorded ?Confirmed ?Last Taken ?Type amlodipine 10 mg tablet 10 mg PO DAILY 09/05/23 09/05/23 Unknown History aspirin 81 mg tablet,delayed 81 mg PO DAILY 09/05/23 09/05/23 Unknown History release (Shelly Low Dose Aspirin) atorvastatin 40 mg tablet 40 mg PO DAILY 09/05/23 09/05/23 Unknown History losartan 25 mg tablet 25 mg PO DAILY 09/05/23 09/05/23 Unknown History magnesium oxide 200 mg PO DAILY 09/05/23 09/05/23 Unknown History metformin 1,000 mg tablet 1,000 mg PO BID 09/05/23 09/05/23 Unknown History metoprolol tartrate 100 mg tablet 100 mg PO BID 09/05/23 09/05/23 Unknown History Allergies Allergy/AdvReac Type Severity Reaction Status Date / Time lisinopril Allergy Mild mild Verified 01/08/25 18:31 PFSH Acute PFSH: Surgical History Hx of cholecystectomy History of amputation of left foot Social History (Reviewed 09/05/23 @ 11:11 by SCOTT Adam Smoking and tobacco/nicotine status: former use of tobacco/nicotine Second hand smoke exposure: No Alcohol intake: never Substance/Drug Use: never Adopted: No Caregiver/support person: No Lives independently: Yes Household members: spouse Housing: House Marital status: Number of children: 3 Highest education level completed: High School Graduate service: Yes branch: [employer] Vitals/I&O/Wt Last Vital Signs Resp 20 H 01/08/25 16:00 FiO2 100 01/08/25 16:00 Physical Exam Narrative: GENERAL: Patient is intubated NECK: No jugular vein distension. [] HEENT: No cyanosis. No icterus. No pallor. [] HEART: Bradycardia LUNGS: Diminished air entry EXTREMITIES: Lower extremities with no edema bilaterally Data 01/08/25 21:12 01/08/25 21:12 A&P Assessment and plan 1. ST elevation AK (STEMI): 2. Cardiac arrest: 3. Acute respiratory failure: 4. Hyperlipidemia: Plan: Patient presented with delayed AK presentation. Initial troponin close to 4000. Patient had a cardiac arrest on route to our hospital. Currently intubated. Rosc obtained and patient going for emergent cardiac procedure. Patient transiently dropping heart rates into the 30s. Will need temporary pacemaker placement. Will also place LV support device and perform coronary angiogram. Patient pH is 6.8 on ABG. Prognosis is guarded. Family is on the way. He was loaded with aspirin, plavix and heparin load was given. We will obtain echocardiogram post procedure We will consult medicine team post procedure for medical and vent management PDMP PDMP Reviewed: Not Reviewed Attestations Medical Necessity Statement*: Care expected to cross 2 midnights. Patient is going to cardiac warehouse general laborer and is unstable currently secondary to delayed presentation of ST elevation AK. Coding Level of Care Code Acute Code for [facility] Diagnoses ST elevation AK (STEMI) I21.3 Cardiac arrest I46.9 Acute respiratory failure J96.00 Hyperlipidemia E78.5
--- NOTE | 2025-01-08 17:00 | PM.PROC ---
Procedure Note: Date of procedure: 01/08/25 Pre-procedure diagnosis: Cardiac arrest/ delayed presentation of inferoposterior STEMI Post-procedure diagnosis: other (Occluded proximal to mid left circumflex artery s/p PCI with 1 stent. ) Procedure: Patient had cardiac arrest as EMS was bringing him to the ER. He was in PEA. CPR continued for 3 cycles. ROSC was obtained. Multiple shocks needed as patient again went into brief VT episodes. Was brought to the cardiac Fruit And Vegetable Classer. Left circumflex artery is totally occluded. Status post PCI with 1 stent. Patient had severe bradycardia and required temporary transvenous pacemaker. He was in cardiogenic shock. Was put on epinephrine and Levophed gtt. multiple epi pushes also needed. Bedside echo showing EF of 40%. Transferred to ICU in critical condition. Discussed in detail with family and they understand the critical nature of his illness and current situation. pH is 6.9 on ABG. Continue aspirin and plavix. We will consult medicine team for further management of medical issues and vent management. Continue levophed and epi gtt. Balloon pump on 1:1 augmentation. ICU monitoring Bicarb gtt. Performing Provider: Bebo García Estimated blood loss (mL): 10 Complications: None Condition: critical Disposition: ICU Coding Level of Care Code Acute Code for [facility] Fwhenrietta
--- NOTE | 2025-01-08 17:18 | ECG_ITS ---
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 Measurements Intervals [place] Rate: 81 P: 0 VT: 0 QRS: -66 QRSD: 85 T: 78 QT: 382 QTc: 445 Interpretive Statements SUPRAVENTRICULAR RHYTHM WITH PACING SPIKES SEEN INDETERMINATE AXIS LEFT ANTERIOR FASCICULAR BLOCK [QRS AXIS <= -45, QR IN I, RS IN II] POSSIBLE INFERIOR MYOCARDIAL INFARCTION , PROBABLY OLD [30 ms Q WAVE IN II/aVF] ST DEPRESSION, CONSIDER SUBENDOCARDIAL INJURY [0.1+ mV ST DEPRESSION] Compared to ECG 01/08/2025 14:36:21 Atrial fibrillation no longer present Ventricular premature complex(es) no longer present Aberrant conduction of supraventricular beat(s) no longer present Intraventricular conduction delay no longer present Electronically Signed On 01-10-2025 08:44:17 CDT by Bebo García M.D. [email or web address]
--- NOTE | 2025-01-08 17:18 | XRR_ITS ---
PROCEDURE INFORMATION: Exam: XR Chest Exam date and time: 01/08/2025 6:56 PM Age: 74 years old Clinical indication: Screening exam; Other screening; Prior surgery; Surgery date: 6+ months; Surgery type: Pacemaker; Additional info: Tube placement, og placement TECHNIQUE: Imaging protocol: Radiologic exam of the chest. Views: 1 view. COMPARISON: No relevant prior studies available. FINDINGS: Tubes, catheters and devices: Endotracheal tube is noted with its tip 2 cm above the level of the jose. Right-sided central venous catheter with its tip at the superior cavoatrial junction. Enteric tube noted with its distal tip and side port collimated from view. Electronic device projecting over the midthorax. Lungs: There is moderate bilateral bronchovascular and interstitial prominence with perihilar fullness. Pleural spaces: Unremarkable. No pleural effusion. No pneumothorax. Heart/Mediastinum: The cardiomediastinal silhouette is top-normal in size. Vasculature: Calcifications of the aortic arch. Bones/joints: Degenerative changes of the bilateral shoulders. XR/XR chest 1V portable [id number] IMPRESSION: 1. Borderline cardiomegaly with findings suggesting moderate interstitial pulmonary edema. Superimposed infectious etiology is not excluded. 2. Support lines and tubes as detailed above.
--- NOTE | 2025-01-08 17:19 | PM.CONSULT ---
Providers/Reason For Consult Consulting Physician/Specialty*: Carlita Perdomo MD / Hospitalist Reason for Consult*: critucal care management Requesting Physician: Bebo García M.D Attending Physician: Bebo García M.D Primary Care Provider: PRANEETH Adam History of Present Illness History of Present Illness Kenny Currie is a 74 year old male who initially presented at an outside hospital for STEMI and was then being transferred to our hospital. Patient had a cardiac arrest in transport he. He was in PEA upon arrival. He received CPR for 3 cycles. ROSC was obtained. Multiple shocks were administered at patient had ventricular tachycardia. He was taken to the [facility] right away where he underwent PCI to the LCx with 1 stent. Patient was noted to be in cardiogenic shock and was placed on pressor support with Levophed and epinephrine. Bedside echocardiogram showed an EF of 40% after stent placement. He was brought to the ICU in critical condition on 2 pressors. Additionally patient is on amiodarone infusion, has a transvenous pacer in place and also an intra-aortic balloon pump. He was on a bicarb drip. ABG showing severe respiratory acidosis with pH of 6.9, CO2 of 28.4, PO2 of 76.4, bicarb of 5.6 consistent with metabolic acidosis and profound circulatory compromise. Patient was intubated in the ER upon arrival. Sedation has been added with fentanyl and Versed at this time. Central line was attempted to be placed in the left femoral by me however was unsuccessful, therefore IJ CVC placement is requested by anesthesia on-call. Review of Systems General: Reports: ROS unobtainable due to endotracheal tube, ROS unobtainable due to medical condition and ROS unobtainable due to mental status Medications/Allergies Home Medications ?Medication ?Instructions ?Recorded ?Confirmed ?Last Taken ?Type amlodipine 10 mg tablet 10 mg PO DAILY 09/05/23 09/05/23 Unknown History aspirin 81 mg tablet,delayed 81 mg PO DAILY 09/05/23 09/05/23 Unknown History release (Shelly Low Dose Aspirin) atorvastatin 40 mg tablet 40 mg PO DAILY 09/05/23 09/05/23 Unknown History losartan 25 mg tablet 25 mg PO DAILY 09/05/23 09/05/23 Unknown History magnesium oxide 200 mg PO DAILY 09/05/23 09/05/23 Unknown History metformin 1,000 mg tablet 1,000 mg PO BID 09/05/23 09/05/23 Unknown History metoprolol tartrate 100 mg tablet 100 mg PO BID 09/05/23 09/05/23 Unknown History Allergies Allergy/AdvReac Type Severity Reaction Status Date / Time lisinopril Allergy Mild mild Verified 01/08/25 18:31 PFSH Acute PFSH: Surgical History Hx of cholecystectomy History of amputation of left foot Social History Smoking and tobacco/nicotine status: former use of tobacco/nicotine Second hand smoke exposure: No Alcohol intake: never Substance/Drug Use: never Adopted: No Caregiver/support person: No Lives independently: Yes Household members: spouse Housing: House Marital status: Number of children: 3 Highest education level completed: High School Graduate service: Yes branch: [employer] Vitals/I&O/Wt Last Vital Signs Resp 20 H 01/08/25 16:00 FiO2 100 01/08/25 16:00 Physical Exam Narrative: General: intubated, sedated, poor peripheral circulation, mottling noted HEENT: pale, pupils are poorly reacting Chest: Normal vesicular breath sounds post intubation CVS: S1-S2 regular, no murmurs, no tachycardia, no gallops, no rubs Abdomen: Soft, nontender, no organomegaly, bowel sounds present Neuro: intubated, sedated Data 01/08/25 21:12 01/08/25 21:12 Other data: Radiology Impressions Chest X-Ray 01/08/25 17:18 IMPRESSION: 1. Borderline cardiomegaly with findings suggesting moderate interstitial pulmonary edema. Superimposed infectious etiology is not excluded. 2. Support lines and tubes as detailed above. Laboratory Results WBC 26.32 10^3/uL (3.29-11.43) H 01/08/25 21:12 RBC 2.94 10^6/uL (3.85-5.65) L 01/08/25 21:12 Hgb 8.80 g/dL (11.27-16.99) L 01/08/25 21:12 Hct 28.2 % (37-53) L 01/08/25 21:12 MCV 95.9 fl (82-101) 01/08/25 21:12 MCH 29.9 pg (27-33) 01/08/25 21:12 MCHC 31.2 g/dL (30-55) 01/08/25 21:12 RDW 13.2 % (12.1-15.1) 01/08/25 21:12 Plt Count 171 10^3/cmm (157-399) 01/08/25 21:12 MPV 10.5 fL (7.4-10.4) H 01/08/25 21:12 Neut % (Auto) 74.2 % 01/08/25 21:12 Lymph % (Auto) 15.5 % 01/08/25 21:12 Hanson % (Auto) 7.5 % 01/08/25 21:12 Eos % (Auto) 0.1 % 01/08/25 21:12 Baso % (Auto) 0.4 % 01/08/25 21:12 Neut # (Auto) 19.53 10^3/uL (1.8-7.7) H 01/08/25 21:12 Lymph # (Auto) 4.1 10^3/uL (0.8-4.8) 01/08/25 21:12 Hanson # (Auto) 2.0 10^3/uL (0.2-0.9) H 01/08/25 21:12 Eos # (Auto) 0.0 10^3/uL (0.0-0.8) 01/08/25 21:12 Baso # (Auto) 0.1 10^3/uL (0.0-0.1) 01/08/25 21:12 Nucleated RBC % (auto) 0.1 % 01/08/25 21:12 Nucleated RBCs # 0.0 /100WBC 01/08/25 21:12 PT 14.70 SECONDS (12.1-14.9) 01/08/25 14:35 INR 1.08 (0.8-1.2) 01/08/25 14:35 APTT 191.8 SECONDS (23.9-36.7) H* 01/08/25 14:35 Specimen Type Arterial 01/08/25 19:40 Sample Site Dacia 01/08/25 19:40 O2 Sat Pulse Oximetry Cancelled 01/08/25 12:15 ABG pH 7.01 (7.35-7.45) L* 01/08/25 19:40 ABG pCO2 29.5 mmHg (35-45) L 01/08/25 19:40 ABG pO2 64.8 mmHg (80.0-100.0) L 01/08/25 19:40 ABG PO2/FiO2 Ratio 64 01/08/25 19:40 ABG HCO3 7.5 mmol/L (22-26) L 01/08/25 19:40 ABG O2 Saturation 82.2 01/08/25 19:40 ABG Base Excess -22.2 mmol/L (-2.0-2.0) L 01/08/25 19:40 Yg Test Pos 01/08/25 19:40 A-a O2 Gradient 78.9 mmHg (5-10) H 01/08/25 19:40 Hematocrit 30.1 % (42-52) L 01/08/25 19:40 Hgb O2 Saturation 80.8 % (95-100) L 01/08/25 19:40 Carboxyhemoglobin 0.6 %THgb (0.4-20.1) 01/08/25 19:40 Methemoglobin 1.1 % (0.4-1.5) 01/08/25 19:40 Total Hemoglobin 9.8 g/dL (14-18) L 01/08/25 19:40 Sodium 137.0 mmol/L (131-143) 01/08/25 19:40 Potassium 4.5 mmol/L (3.5-5.0) 01/08/25 19:40 Glucose 279.0 mg/dL (70-115) H 01/08/25 19:40 Ionized Calcium 1.4 mmol/L (1.1-1.4) 01/08/25 19:40 Respiration Rate Cancelled 01/08/25 12:15 O2 Delivery Device Vent 01/08/25 19:40 O2 Liters/Min Cancelled 01/08/25 12:15 SIMV Cancelled 01/08/25 12:15 Vent Mode Cancelled 01/08/25 12:15 Mechanical Rate Cancelled 01/08/25 12:15 Spontaneous Rate Cancelled 01/08/25 12:15 FiO2 100.0 % 01/08/25 19:40 Tidal Volume 0.50 01/08/25 19:40 PEEP 8.0 cmH20 01/08/25 19:40 Pressure Support Cancelled 01/08/25 12:15 Pressure Control Cancelled 01/08/25 12:15 CPAP Cancelled 01/08/25 12:15 Mode BiPAP Cancelled 01/08/25 12:15 Specimen Drawn By Cancelled 01/08/25 12:15 Spent Grain Dryer ID Bd 01/08/25 19:40 Crit Value Read Back Cancelled 01/08/25 12:15 Blood Gas Notified Time Cancelled 01/08/25 12:15 Sodium 142 mmol/L (136-145) 01/08/25 21:12 Potassium 4.6 mmol/L (3.5-5.1) 01/08/25 21:12 Chloride 98 mmol/L (98-107) 01/08/25 21:12 Carbon Dioxide 8 mmol/L (22-29) L* 01/08/25 21:12 Anion Gap 40.6 (5-19) H 01/08/25 21:12 BUN 32 mg/dL (8-23) H 01/08/25 21:12 Creatinine 2.8 mg/dL (0.7-1.2) H 01/08/25 21:12 GFR Calculation Not Reportable 01/08/25 21:12 Glucose 342 mg/dL (65-115) H 01/08/25 21:12 POC Glucose 132 mg/dL (70-110) H 01/08/25 23:58 Calculated Osmolality 314 mOsm/kg (285-295) H 01/08/25 21:12 Lactic Acid Cancelled 01/08/25 21:12 Lactate 20.4 mmol/L (0.5-2.2) H* 01/08/25 21:12 Calcium 9.2 mg/dL (8.5-10.5) 01/08/25 21:12 Total Bilirubin 0.5 mg/dL (0.15-1.2) 01/08/25 21:12 AST > 700 U/L (0-40) H 01/08/25 21:12 ALT 610 U/L (0-41) H 01/08/25 21:12 Alkaline Phosphatase 83 U/L (40-130) 01/08/25 21:12 Troponin T Baseline > 89834 ng/L (0-15) H* 01/08/25 21:12 Troponin T 120 Minute > 87615 ng/L (0-15) H 01/08/25 23:10 Delta Troponin T 0 ABS# (0-10) 01/08/25 23:10 Troponin T Hi Sens 6Hr Cancelled 01/09/25 03:12 Troponin T Hi Sens 6Hr Delta Cancelled 01/09/25 03:12 NT-Pro-B Natriuret Pep 9371 pg/mL (0-450) H 01/08/25 14:35 Total Protein 4.2 g/dL (6.6-8.7) L D 01/08/25 21:12 Albumin 2.8 g/dL (3.5-5.2) L 01/08/25 21:12 Globulin 1.4 g/dL (1.3-4.6) 01/08/25 21:12 A&P Assessment and plan 1. ST elevation VA (STEMI): 2. Acute myocardial infarction: 3. Cardiac arrest: 4. Hyperlipidemia: 5. Cardiogenic shock: Plan: 74-year-old male with STEMI, delayed presentation, brought to the emergency room today in cardiac arrest. Underwent CPR with ROSC and taken directly to the [facility] where he underwent stent placement. Hospitalist is consulted for critical care management. Currently patient is on multiple drips including amiodarone, bicarbonate, which will be continued. ABG revealing severe metabolic acidosis compatible with cardiogenic shock Continue pressor support with Levophed and epinephrine infusions. Arterial blood pressure currently with MAP in the 60s. Will add vasopressin if needed as a third pressor. Fentanyl and Versed to be added for sedation at this time. Internal jugular Central line placement requested from anesthesia on-call. Repeat ABG with a.m. labs to assess for serial improvement. Patient is in cardiogenic shock, prognosis is extremely poor. Family updated regarding critical nature of patient's illness. CUrrently on 100% fi02, PEEP 10 on ventilator. to be reassed with next ABG will continue to follow PDMP PDMP Reviewed: Not Reviewed Consult Attestations Critical Care Time: The high probability of a clinically significant, sudden or life threatening deterioration of the patient's [respiratory, cardiac] system(s) required my full and direct attention, intervention and personal management. The critical care time is as shown. This time is in addition to time spent performing any reported procedures but includes the following: [x] Data and vital sign review and interpretation [x] Patient assessment, examination and intervention [x] Documentation [x] Medication orders and management Critical Care Time (min): 60 Coding Level of Care Code Critical Care >/= [address] elevation VA (STEMI) I21.3 Acute myocardial infarction I21.9 Cardiac arrest I46.9 Hyperlipidemia E78.5 Cardiogenic shock R57.0
[2025-01-08] MEDS: heparin drip 25,000 UNIT/500 ML PREMIX 10 UNIT IV (17:41)
[2025-01-08] MEDS: fentaNYL 1,000 MCG/100 ML BAG 2.5 MCG IV (18:23)
[2025-01-08] MEDS: midazolam hcl 100 MG/100 ML BAG IV (18:25)
[2025-01-08] MEDS: norepinephrine 4 MG/250 ML BAG 75 MG IV ×2 (18:28→21:23)
[2025-01-08] MEDS: EPINEPHrine 10 MG in sodium chloride 0.9% 1,000 ML 187 MG IV (18:47)
--- NOTE | 2025-01-08 18:50 | ANES.PROC ---
Anesthesia Procedures Procedure/Date: 01/09/25 Central Venous Insert: Central Venous Line: R Internal Juglar Consent: requested by attending/covering physician (Consent obtained by Dr. Perdomo from family; requested R IJ after unsuccessful attempt at femoral central line) Central Line: New Anesthesia monitors: pulse oximetry, EKG, BP cuff and oxygen Vein cannulated: right internal jugular Ultrasound used: to identify patency to vessel and to visualize needle entry to vein Post procedure: Obtain Chest X-Ray Other Information: Diagnosis: STEMI
--- NOTE | 2025-01-08 19:18 | ECG_ITS ---
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 Measurements Intervals [place] Rate: 74 P: 0 RI: 0 QRS: -54 QRSD: 152 T: 0 QT: 403 QTc: 448 Interpretive Statements PACED RHYHTM RIGHT BUNDLE BRANCH BLOCK [120+ ms QRS DURATION, UPRIGHT V1, 40+ ms S IN I/aVL/V4/V5/V6] LEFT ANTERIOR FASCICULAR BLOCK [QRS AXIS <= -45, QR IN I, RS IN II] Compared to ECG 01/08/2025 18:00:37 Right bundle-branch block now present Supraventricular rhythm no longer present Indeterminate axis no longer present Myocardial infarct finding no longer present ST (T wave) deviation no longer present Electronically Signed On 01-10-2025 09:40:30 CDT by Bebo García M.D. [id number] [id number]
[2025-01-08 19:49] LABS: ABG PCO2 29.5 mmHg (35-45); Arterial Blood Gas Hematocrit 30.1 % (42-52); Blood Gas Allen Test Pos; Blood Gas Sample Type Arterial; Carboxyhemoglobin 0.6 %THgb (0.4-20.1); Glucose Level-ABG 279.0 mg/dL (70-115); HCO3 ABG 7.5 mmol/L (22-26); Ionized Calcium Level - ABG 1.4 mmol/L (1.1-1.4); Methemoglobin 1.1 % (0.4-1.5); Oxygen Saturation ABG 82.2; PO2 ABG 64.8 mmHg (80.0-100.0); Potassium Level - ABG 4.5 mmol/L (3.5-5.0); Sodium Level - ABG 137.0 mmol/L (131-143)
[2025-01-08 19:50] LABS: ABG PH Result 7.01 (7.35-7.45); Alveolar-Arterial Oxygen Gradi 78.9 mmHg (5-10); Blood Gas Operator Identificat BD; Blood Gas Sample Site ALINE; Blood Gas Tidal Volume 0.50; PEEP 8.0 cmH20; PO2 FiO2 Ratio Arterial Blood 64
--- NOTE | 2025-01-08 19:50 | PC.NURSE ---
1710 -- Patient to room via bed from sawyer cork slabs. IABP in place to right groin 1:1 with 100% augmentation. Bagging with 100%, placed on vent at 100% fIo2. Levo and Epi infusing. Dr. Anders at bedside, Dr. Perdomo at bedside. Attempted to place central line to right femoral vein. Dr. Leong called to bedside to place central line. Verified order with Cristiano Kaiser NP for heparin. Order given to run heparin at 10mL / hour with no titration, no bolus, and no PTT checks.
[2025-01-08] MEDS: vasopressin 40 UNIT/100 ML PREMIX IV (20:41)
[2025-01-08 21:36] LABS: Hematocrit 28.2 % (37-53); Mean Corpuscular HGB Conc 31.2 g/dL (30-55); Mean Corpuscular Hemoglobin 29.9 pg (27-33); Mean Corpuscular Volume 95.9 fl (82-101); Nucleated Red Blood Cells % 0.1 %; Platelet Count 171 10^3/cmm (157-399); Positive M 1; Red Blood Count 2.94 10^6/uL (3.85-5.65); White Blood Count 26.32 10^3/uL (3.29-11.43)
[2025-01-08 22:30] LABS: Alanine Aminotransferase 610 U/L (0-41); Albumin Level 2.8 g/dL (3.5-5.2); Alkaline Phosphatase 83 U/L (40-130); Chloride 98 mmol/L (98-107); Sodium 142 mmol/L (136-145)
[2025-01-08 22:31] LABS: Lactate (Lactic Acid level) 20.4 mmol/L (0.5-2.2)
[2025-01-08 22:51] LABS: Hemoglobin 8.80 g/dL (11.27-16.99)
[2025-01-08 23:10] LABS: Blood Urea Nitrogen 32 mg/dL (8-23); Calcium 9.2 mg/dL (8.5-10.5); Creatinine Clr Calc Pharmacy 24.2460; Globulin 1.4 g/dL (1.3-4.6); Glucose 342 mg/dL (65-115); Osmolality Calculated 314 mOsm/kg (285-295); Total Protein 4.2 g/dL (6.6-8.7)
--- NOTE | 2025-01-08 23:18 | ECG_ITS ---
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 Measurements Intervals [place] Rate: 84 P: 72 ID: [id number] QRS: 266 QRSD: 98 T: 77 QT: 406 QTc: 482 Interpretive Statements PACED RHYTHM INDETERMINATE AXIS POSSIBLE RIGHT VENTRICULAR CONDUCTION DELAY [RSR (QR) IN V1/V2] MODERATE ST DEPRESSION [0.05+ mV ST DEPRESSION] Compared to ECG 01/08/2025 19:57:45 Ventricular premature complex(es) now present First degree AV block now present Indeterminate axis now present ST (T wave) deviation now present Right bundle-branch block no longer present Left anterior fascicular block no longer present Electronically Signed On 01-10-2025 09:40:00 CDT by Bebo García M.D. [id number] [id number]
[2025-01-08 23:24] LABS: Anion Gap 40.6 (5-19); Potassium 4.6 mmol/L (3.5-5.1)
[2025-01-08 23:25] LABS: Aspartate Amino Transferase > 700 U/L (0-40)
[2025-01-08 23:26] LABS: Carbon Dioxide 8 mmol/L (22-29)
[2025-01-08 23:48] LABS: Troponin(5th) Baseline > 10000 ng/L (0-15)
[2025-01-09] VITALS (21 sets, daily range): BP systolic 68–135; BP diastolic 39–65; PULSE 0–76; O2SAT 50–73
[2025-01-09 00:20] LABS: Troponin 5 2HR > 10000 ng/L (0-15); Troponin 5 2HR Delta 0 ABS# (0-10)
[2025-01-09] MEDS: EPINEPHrine 10 MG in sodium chloride 0.9% 1,000 ML 187 MG IV (00:20)
[2025-01-09] MEDS: norepinephrine 4 MG/250 ML BAG 75 MG IV (00:47)
[2025-01-09] MEDS: amiodarone 150 MG/100 ML PREMIX 400 MG IV (01:12)
[2025-01-09] MEDS: lidocaine drip 2,000 MG/500 ML PREMIX 15 MG IV (01:12)
[2025-01-09] MEDS: DOBUTamine drip 500 MG/250 ML PREMIX 11.78 MG IV (01:25)
--- NOTE | 2025-01-09 01:42 | P.PNCC_ITS ---
Critical Care Event Note The high probability of a clinically significant, sudden or life threatening deterioration of the patient's [] system(s) required my full and direct attention, intervention and personal management. The critical care time is as shown. This time is in addition to time spent performing any reported procedures but includes the following: [x] Data and vital sign review and interpretation [x] Patient assessment, examination and intervention [x] Documentation [x] Medication orders and management Critical Care Time Code activated: No Critical Care Time (min): 60 Additional information about critical care time: - Patient was examined multiple times throughout the evening, into the lead python developer - Patient was seen earlier in the evening, patient is maximized on Levophed, epinephrine, maps less than 65, ABG shows pH of 7 - Given order for amp of bicarb start vasopressin, - Patient is on balloon pump, - O2 sats on 100% are in the low 90s - Urine output lackluster - Nursing staff advised to increase bicarb drip to 150 cc stop normal saline - I had a detailed family meeting with patient's , patient's daughters and son - Discussed patient's multiorgan failure, cardiogenic shock, refractory shock, on multiple pressors, on 100% FiO2, with presentation of cardiac arrest, requiring CPR, had a left circumflex stent placed, severe bradycardia requiring transvenous pacemaker temporary, has a balloon pump in place, - Discussed that his prognosis is poor, status is critical - Discussed options of continued medical inventions versus hospice - For now family wants to continue medical interventions, he remains a full code, they want to give him a trial of medical therapy, they are waiting on another son to come down from [place] - Early in the morning patient had episodes of ventricular tachycardia, had a pulse, blood pressures are soft but maps are around 55-65, - Patient is on amiodarone drip, order placed for amiodarone bolus - Patient has persistent ventricular tachycardia, still has a pulse, blood pressures MAP is around 55 order placed on lidocaine drip - Reexamined, patient's out of ventricular tachycardia, what appears to be sinus tachycardia, paced, MAP is about 50, on 100% FiO2 O2 sats are in the low 60s - Patient is maximized on epi, vasopressin, increase Levophed to 30, placed on dobutamine - I had a family meeting with the patient's , patient's son - Discussed that Kenny's prognosis is poor, status is critical, he now has episodes of ventricular tachycardia, has refractory shock, now on 4 pressors, O2 sats are in the low 60s on 100% FiO2, I do not believe that he will have the quality of life that he had before this, I think that his prognosis is poor, status is critical, - With everything that we are giving to him currently there is a high risk of anoxic brain injury, especially with his cardiac arrest, his PEA, his episodes of VT, discussed with his that I do not believe Kenny will make it through the night, and I do not believe he will come off IV artificial life support, - Discussed goals of care, family wants to discuss amongst themselves - Patient was reexamined, currently on 4 pressors, O2 sats now in the low 50s on 100% FiO2, MAP is about 40, heart rates in the 60s, he is off lidocaine, I also gave him fluid bolus, - and son are at bedside - and son have made the decision to make Kenny DNR,s after discussing the risks and benefits, patient's son and voiced understanding, all questions were answered, agreed to proceed - Spoke to patient's , she tells me that Kenny and her originally from [place], they moved down to [place], when they graduated high school, they went there several ways, but eventually found each other in the 70s, and got , and they are settled in [place], but they came back to [place], she tells me that he was a good man, but she does not want him to suffer - Discussed options of continued medical therapy, versus just making Kenny hospice given that his O2 sats remained low 50s on 100% FiO2, very highly likelihood of anoxic brain injury, maps are in the 40s, on maximal medical therapy - For now she wants to continue medical interventions, but she does not want Kenny to suffer - For now we will continue medical interventions, I am going to give Kenny his some time to spend with Kenny - Prognosis poor, status critical Coding Level of Care Code Acute Code for [facility] Fwd
[2025-01-09] MEDS: vasopressin 40 UNIT/100 ML PREMIX 13.5 UNIT IV (02:32)
--- NOTE | 2025-01-09 03:48 | PC.NURSE ---
Addendum entered by JOSEPH Garcia 01/09/25 04:59: Confirmed no apical heart tones after auscultation for one minute. Time of 254 Original Note: 2009: Pt pressures on balloon pump consistently dropping, discussed ABG results and pressures with Dr. Campbell. New orders received for 2 amps of bicarb push, start vasopressin, and if not improved to start dopamine. Discussed critical labs as received with Dr. Campbell and new orders received to increase bicarb drip. 0100: Pt began sustained v tach with pulse. Contacted Dr. Campbell and new order received for Amiodarone bolus. 0112: Dr. Campbell at bedside, ongoing v tach. New order for lidocaine drip. Pulse became very thready and increasingly irreglar with rate less than 70, with transvenous pacer failing to capture. Increased milliamps to 15 and began capturing. Verbal order to increase levophed to 30. 0117: Verbal order to stop lidocaine drip. 0125: Pressures steadily decreasing, verbal order for dobutamine. 0130: Pulse increasingly thready and irregular with rate less than 60. Milliamps on pacemaker increased to 20 and began capturing and increased dobutamine to 10. Family at bedside, Dr. Campbell discussed current condition. Family elected to change code status to AND. Family remained at bedside for period of time, Dr. Campbell discussed again current condition and prognosis. Family informed staff that pt was an organ donor, and requested not to withdraw care until verification if pt would be able to donate. MTS contacted and reviewed chart, informed this nurse that pt was not eligible to donate organs and could proceed with comfort care. Informed family and they requested at that time to transition to comfort care. Discussed same with Dr. Campbell, and verbal order given to proceed as such. At [address] Campbell, IV medications stopped, transvenous pacemaker stopped, and balloon pump removed. Asystole on monitor, no blood pressure, no apical heart tones following one minute of auscultation (Kellen Ybarra RN). Time of 254. Dr. Campbell contacted following. Family at bedside.
--- NOTE | 2025-01-09 04:59 | PC.NURSE ---
Wasted 70 ml versed and 65 ml fentanyl. Witnessed by Toni Nguyen RN.
--- NOTE | 2025-01-09 05:05 | PC.NURSE ---
Following post mortem care, wedding band present on left ring finger.
--- NOTE | 2025-01-09 05:52 | PC.NURSE ---
[facility], pt eligible for eye donation.
--- NOTE | 2025-01-09 12:19 | PC.NURSE ---
[facility] in [place], [place] came and picked up the pts. The pts belongings was sent with the home
--- NOTE | 2025-01-09 14:24 | PM.DDS ---
Discharge Providers DDS Date of Admission: 01/08/25 17:07 Date Summary Completed: 01/15/25 Attending Provider at Admission: Bebo García M.D Time of : 02:55 Attending Provider at Discharge: Bebo García M.D Primary Care Provider: PRANEETH Adam Diagnoses Probable Cause of Myocardial Infarction Hospital Diagnoses 1. ST elevation AL (STEMI): 2. Cardiac arrest: 3. Acute respiratory failure: 4. Hyperlipidemia: 5. Cardiogenic shock: Reason for Visit Reason for Visit Delayed STEMI Brief History: Kenny Currie is a 74 year old male with past medical history of hypertension, hyperlipidemia, diabetes who had been having chest pain symptoms since yesterday. It was severe. Today pain has improved however still 06/30. He presented to [facility]. EKG is consistent with delayed presentation of inferoposterior ST elevation AL with Q waves. During the transport from outside hospital to our emergency room, patient became decompensated. According to EMS blood pressure dropped and he became bradycardic. Epi push was given. He was put on transcutaneous pacemaker. On arrival to the ER, patient did not have any pulse. CPR was initiated. Initial rhythm was PEA. Once ROSC was obtained, patient went into VT and required shocks. Once ROSC was obtained again, we moved patient to cardiac Administration Professional. Plan for coronary angiogram. Patient's heart rate is intermittently dropping to 30s. Blood pressure is dropping intermittently. Intubated in the ER. Summary Date and Time of Date of : 01/09/25 Time of : 02:55 Summary Summary: Patient was brought to the cardiac Administration Professional. Left circumflex artery was totally occluded. Status post PCI with 1 stent. Patient had severe bradycardia and required temporary transvenous pacemaker. He was in cardiogenic shock. Was put on epinephrine and Levophed gtt. multiple epi pushes also needed. Intraaortic balloon pump was placed. Patient was transferred to ICU in critical condition. Discussed in detail with family and they understood the critical nature of his illness and current situation. pH was 6.9 on ABG. Patient's condition continued deteriorating during the night with increasing pressor requirement and inability to maintain blood pressure. After medicine's team multiple discussions with family and updates on his condition, decision made to proceed with comfort measures. Patient at 2:55AM. Additional Data Confirmation of as documented by pronouncing clinician: no pulse, no respirations and no heart sounds Was code activated?: No Advance directives?: No Discharge Plan Discharge Patient Disposition: Condition: Probable Cause of Probable cause of : Cardiac arrest DS Attestations Time Spent in /Discharge Care*: less than 30 min Quality - AMI: AMI present?: Yes Quality - Stroke: CVA present?: No Quality - VTE: VTE present?: No Coding Level of Care Code Acute Code for [facility] Diagnoses ST elevation AL (STEMI) I21.3 Cardiac arrest I46.9 Acute respiratory failure J96.00 Hyperlipidemia E78.5 Cardiogenic shock R57.0
[2025-01-09 15:08] LABS: ABG PCO2 33.3 mmHg (35-45); ABG PH Result 6.92 (7.35-7.45); HCO3 ABG 6.8 mmol/L (22-26); PO2 ABG 91.2 mmHg (80.0-100.0)
[2025-01-09 15:09] LABS: Blood Gas Allen Test POS; Oxygen Saturation ABG 90.2; Potassium Level - ABG 4.8 mmol/L (3.5-5.0); Sodium Level - ABG 130.0 mmol/L (131-143)
[2025-01-09 15:10] LABS: Arterial Blood Gas Hematocrit 27.7 % (42-52); Blood Gas Sample Site Femoral, right; Blood Gas Sample Type Aterial
[2025-01-09 15:11] LABS: Carboxyhemoglobin 0.6 %THgb (0.4-20.1); Glucose Level-ABG 389.0 mg/dL (70-115); Ionized Calcium Level - ABG 1.8 mmol/L (1.1-1.4); Methemoglobin 0.6 % (0.4-1.5)
== END 2025-01-09 05:50 | disposition expired | DRG 270 ==
LOC: ER 14:41 → CCL 14:43 → ICU 17:09
PROVIDERS: Emergency Medicine; Family Medicine; Nurse Practitioner Family; Admitting Provider Internal Medicine; Emergency Provider Family Medicine; PCP Nurse Practitioner Family; Visit Provider Internal Medicine
PROC: 5A02210 Assistance with Cardiac Output using Balloon Pump, Continuous (ICD-10-PCS; principal; 2025-01-08 15:00)
PROC: 5A02210 Assistance with Cardiac Output using Balloon Pump, Continuous (ICD-10-PCS; 2025-01-08 15:00)
DX: I21.21 ST elevation (STEMI) myocardial infarction involving left circumflex coronary artery (principal); J96.00 Acute respiratory failure, unspecified whether with hypoxia or hypercapnia; G93.1 Anoxic brain damage, not elsewhere classified; E87.4 Mixed disorder of acid-base balance; I47.20 Ventricular tachycardia, unspecified; I46.9 Cardiac arrest, cause unspecified; R57.0 Cardiogenic shock; E78.5 Hyperlipidemia, unspecified; I10 Essential (primary) hypertension; E11.9 Type 2 diabetes mellitus without complications; R00.1 Bradycardia, unspecified; Z66 Do not resuscitate; Z89.432 Acquired absence of left foot
CPT/HCPCS: 33210; 33967; 36416; 36600; 51702; 71045; 80051; 80053; 82330; 82805; 82962; 83605; 83880; 84484; 85025; 85347; 85610; 85730; 87070; 87205; 93005; 93454; 94002; 94799; 96374; 96375; 99152; 99153; 99291; C1725; C1757; C1769; C1779; C1874; C1887; C1894; C9600; J0169; J0283; J1250; J1644; J2003; J2250; J2598; J3010; J7030; J7070; J9999; Q9967